=== PATIENT | male | born 1945 | race Caucasian/White ===

== ENCOUNTER → 2018-01-23 | Outpatient (CLI) | payer MEDICARE ==
[2018-01-23 12:09] LABS: HEMATOCRIT 50.9 % (42.0-52.0); HEMOGLOBIN 17.3 g/dl (13.5-17.5); MEAN CORPUSCULAR HEMOGLOBIN 29.8 pg (27.0-33.0); MEAN CORPUSCULAR VOLUME 87.8 fl (80.0-96.0); PLATELET COUNT, AUTOMATED 189 10^3/uL (150-450); RED CELL DISTRIBUTION WIDTH 14.1 % (11.5-14.5); WHITE BLOOD COUNT 5.8 10^3/uL (4.0-10.0)
[2018-01-23 12:43] LABS: ALBUMIN 3.9 GM/DL (3.2-5.2); ALBUMIN/GLOBULIN RATIO 1.18 (1.00-1.93); ALKALINE PHOSPHATASE 105 U/L (45-117); ALT/SGPT 39 U/L (12-78); ANION GAP 6 MEQ/L (8-16); AST/SGOT 21 U/L (7-37); BILIRUBIN,TOTAL 0.7 MG/DL (0.2-1.0); BLOOD UREA NITROGEN 20 MG/DL (7-18); CALCIUM LEVEL 8.9 MG/DL (8.8-10.2); CARBON DIOXIDE LEVEL 30 MEQ/L (21-32); CHLORIDE LEVEL 105 MEQ/L (98-107); CHOLESTEROL LEVEL 197 MG/DL (<200); CHOLESTEROL RISK RATIO 6.156 (<5); CPK CREATINE PHOSPHOKINASE 122 U/L (39-308); CREATININE FOR GFR 1.49 MG/DL (0.70-1.30); FREE T4 0.99 NG/DL (0.76-1.46); GLOMERULAR FILTRATION RATE 49.1 (>42); GLUCOSE, FASTING 173 MG/DL (70-100); HDL CHOLESTEROL 32 MG/DL (>40); NON-HDL-C 165 MG/DL; POTASSIUM SERUM 4.9 MEQ/L (3.5-5.1); SODIUM LEVEL 141 MEQ/L (136-145); TOTAL PROTEIN 7.2 GM/DL (6.4-8.2); TRIGLYCERIDES LEVEL 265 MG/DL (<150)
[2018-01-23 13:27] LABS: ESTIMATED AVERAGE GLUCOSE 148 MG/DL (60-110); HEMOGLOBIN A1c 6.8 %
[2018-01-23 13:47] LABS: MAU/CREAT RATIO 290.4 MCG/MG (0.0-30.0)
[2018-01-23 16:42] LABS: VITAMIN B12 LEVEL 363 PG/ML (247-911)
== END ==
LOC: M LRY 08:34
DX: E11.9 Type 2 diabetes mellitus without complications (principal); E78.00 Pure hypercholesterolemia, unspecified; R53.83 Other fatigue
CPT/HCPCS: 82550

== ENCOUNTER → 2018-05-09 | Outpatient (CLI) | payer MEDICARE ==
[2018-05-09 16:38] LABS: HEMATOCRIT 50.6 % (42.0-52.0); HEMOGLOBIN 16.8 g/dl (13.5-17.5); MEAN CORPUSCULAR HGB CONC 33.2 g/dl (32.0-36.5); MEAN CORPUSCULAR VOLUME 87.4 fl (80.0-96.0); PLATELET COUNT, AUTOMATED 187 10^3/uL (150-450); RED BLOOD COUNT 5.79 10^6/uL (4.30-6.10); RED CELL DISTRIBUTION WIDTH 13.4 % (11.5-14.5); WHITE BLOOD COUNT 7.1 10^3/uL (4.0-10.0)
[2018-05-09 16:42] LABS: ALBUMIN 4.5 GM/DL (3.2-5.2); ALBUMIN/GLOBULIN RATIO 1.67 (1.00-1.93); ALKALINE PHOSPHATASE 100 U/L (45-117); ALT/SGPT 28 U/L (12-78); ANION GAP 5 MEQ/L (8-16); AST/SGOT 16 U/L (7-37); BILIRUBIN,TOTAL 0.7 MG/DL (0.2-1.0); BLOOD UREA NITROGEN 24 MG/DL (7-18); CALCIUM LEVEL 9.1 MG/DL (8.8-10.2); CARBON DIOXIDE LEVEL 29 MEQ/L (21-32); CHLORIDE LEVEL 107 MEQ/L (98-107); CHOLESTEROL LEVEL 194 MG/DL (<200); CHOLESTEROL RISK RATIO 6.689 (<5); CPK CREATINE PHOSPHOKINASE 156 U/L (39-308); CREATININE FOR GFR 1.56 MG/DL (0.70-1.30); GLOMERULAR FILTRATION RATE 46.4 (>42); GLUCOSE, FASTING 122 MG/DL (70-100); HDL CHOLESTEROL 29 MG/DL (>40); LDL CHOLESTEROL 122 MG/DL (<100); NON-HDL-C 165 MG/DL; POTASSIUM SERUM 4.5 MEQ/L (3.5-5.1); SODIUM LEVEL 141 MEQ/L (136-145); TOTAL PROTEIN 7.2 GM/DL (6.4-8.2); TRIGLYCERIDES LEVEL 217 MG/DL (<150)
[2018-05-09 16:53] LABS: ESTIMATED AVERAGE GLUCOSE 128 MG/DL (60-110); HEMOGLOBIN A1c 6.1 %
[2018-05-09 17:03] LABS: MAU/CREAT RATIO 179.7 MCG/MG (0.0-30.0)
== END ==
LOC: M LRY 11:09
DX: E78.00 Pure hypercholesterolemia, unspecified (principal); E11.9 Type 2 diabetes mellitus without complications; I10 Essential (primary) hypertension
CPT/HCPCS: 82550

== ENCOUNTER 2018-07-20 15:45 | Inpatient (IN) | payer MEDICARE ==
[~2018-07-20] VITALS: Ht 177.8 cm; Wt 94.2 kg
[2018-07-20] MEDS ORDERED: MOM 30ML SUSPENSION UDC PO PRN (16:30)
[2018-07-20] MEDS ORDERED: GLUCOSE 4 GM CHEW TABLET PO PRN (16:30)
[2018-07-20] MEDS ORDERED: BISACODYL 10 MG SUPP PR PRN (16:30)
[2018-07-20] MEDS ORDERED: DEXTROSE 50% 50 ML SYRINGE IV PRN (16:30)
[2018-07-20] MEDS ORDERED: ONDANSETRON 4 MG TAB (S0181) PO PRN (16:30)
[2018-07-20] MEDS ORDERED: ACETAMINOPHEN TAB 650MG DOSE (2X325MG) PO PRN (16:30)
[2018-07-20] MEDS ORDERED: GLUCAGON FOR INJ 1 MG VIAL (J1610) SC PRN (16:30)
[2018-07-20 16:40] VITALS: BP 134/79
[2018-07-20] MEDS ORDERED: ASPI81CH PO (17:17)
[2018-07-20] MEDS ORDERED: MIRA3350 PO (17:17)
[2018-07-20] MEDS ORDERED: CLOP75TA2 PO (17:17)
[2018-07-20] MEDS ORDERED: LOSA25TA14 PO (17:17)
[2018-07-20] MEDS ORDERED: ATOR80TA59 PO (17:17)
[2018-07-20] MEDS ORDERED: DOCU100C16 PO (17:17)
[2018-07-20] MEDS ORDERED: AMLO10TA5 PO (17:17)
[2018-07-20] MEDS ORDERED: METF10004 PO (17:17)
[2018-07-20] MEDS: HumaLOG INSULIN (NovoLOG) PER UNIT SC SCH (17:30)
[2018-07-20 20:00] VITALS: BP 126/67
--- NOTE | 2018-07-20 21:36 | CR ---
DATE OF CONSULTATION: 07/20/2018 REASON FOR CONSULT: Medical management. FAREBOX REPAIRER PROVIDER: Patricia Rouse MD. HISTORY OF PRESENT ILLNESS: The patient is a 73-year-old right-handed male, who initially presented to [facility] on 07/16. At the time, he presented with right-sided facial droop, as well as right hemiparesis. He had undergo an extensive evaluation at their facility including echocardiogram with negative bubble study. Preserved ejection fraction. At the end of their work up, he was noted to have severe distal M3 stenosis, as well as right vertebral stenosis at C5, which they feel to be the etiology of his right pontine cerebrovascular accident (CVA). The patient had noticed some improvement in his symptoms over the last several days while being hospitalized. At this time, he has been transferred to and R acute rehabilitation unit for continued rehabilitation. PAST MEDICAL HISTORY: 1. Hypertension. 2. Diabetes. 3. Coronary artery disease, status post coronary artery bypass graft (CABG), four vessels CURRENT MEDICATIONS: - losartan 25 mg daily - pantoprazole 40 mg daily - aspirin 81 mg - Lipitor 80 mg - Plavix 75 mg - Lovenox 40 mg subcutaneously daily - amlodipine 10 mg daily - Senokot one tablet at bedtime (q.h.s.) - Levemir 5 units at bedtime (q.h.s.) - insulin sliding scale - Dulcolax 10 mg daily as needed for constipation ALLERGIES: No known drug allergies. SURGICAL HISTORY: Four vessel coronary artery bypass graft (CABG). SOCIAL HISTORY: He is , former smoker. Denies alcohol or illicit drug use. REVIEW OF SYSTEMS: Negative other than history of present illness. FAMILY HISTORY: Noncontributory. OBJECTIVE: VITAL SIGNS: Temperature 97.5, pulse 60, respiratory rate 18, blood pressure (BP) 134/79, oxygen saturation 94% on room air. GENERAL: He is a very pleasant, elderly man, speaking. He does have some slurred speech, but is awake, alert, oriented times three. He is accompanied by his and daughter. He does not appear to be in any acute distress. HEENT: He does have a right-sided facial droop. Moist mucous membranes. Tongue is midline. CARDIOVASCULAR: S1, S2 regular. RESPIRATORY EXAM: Fairly clear. ABDOMINAL EXAM: Obese, bowel sounds present. The abdomen is soft. EXTREMITIES: There is no clubbing, cyanosis or edema. LABORATORY STUDIES: From today in [place], white blood count (WBC) 7.5, hemoglobin 16.5, hematocrit 47.9, platelet count 168. Chemistry panel: Sodium 135, potassium 4.6, chloride 104, bicarbonate 19, BUN 21, creatinine 1.3, glucose 133. ASSESSMENT AND PLAN: This is a 73-year-old man status post right pontine cerebrovascular accident (CVA). PROBLEMS: 1. Right pontine cerebrovascular accident (CVA). He is currently on aspirin, Plavix, statin, high does, high intensity statin. We are also making every effort to control his blood pressure with losartan and amlodipine, which are new medications for him and I explained to the family and the patient that given his severe intracranial stenosis, he will require our best efforts to keep him optimized, including dietary habits, control of his diabetes and blood pressure in order to reduce his risk of future strokes. However, for the rest of his life, he will likely remain at higher risk for further strokes. These could occur at any time. 2. Type 2 diabetes on insulin sliding scale with fingersticks. 3. Hypertension, as outlined above. 4. Coronary artery disease. He is on aspirin and statin. He is not on a beta duncan. Should he be hypertensive, could consider switching him to one in the future if felt strongly about it. 5. Deep vein thrombosis (DVT) prophylaxis. He is on Lovenox. Thank you for this interesting consult. Will continue to follow along with you regarding this patient. Please call with any specific questions. WAQAR
[2018-07-20] MEDS: DOCUSATE SODIUM 100 MG CAP PO SCH (21:56)
[2018-07-20] MEDS: SENNA 8.6 MG TAB (SENOKOT) PO SCH (21:56)
[2018-07-20] MEDS: LEVEMIR (INSULIN DETEMIR) 1 UNITS/0.01ML SC SCH (21:57)
[2018-07-21 06:00] VITALS: BP 144/70
[2018-07-21 06:58] LABS: BASO # 0.1 10^3/uL (0.0-0.2); BASO % 0.9 % (0.0-1.0); EOS # 0.3 10^3/uL (0.0-0.50); EOS % 4.1 % (0.0-3.0); HEMATOCRIT 49.2 % (42.0-52.0); HEMOGLOBIN 16.7 g/dl (13.5-17.5); LYMPH # 1.4 10^3/uL (1.5-4.5); LYMPH % 19.5 % (24.0-44.0); MEAN CORPUSCULAR HEMOGLOBIN 29.7 pg (27.0-33.0); MEAN CORPUSCULAR HGB CONC 33.9 g/dl (32.0-36.5); MEAN CORPUSCULAR VOLUME 87.4 fl (80.0-96.0); MONO # 0.8 10^3/uL (0.0-0.8); MONO % 11.2 % (0.0-5.0); NEUTROPHILS # 4.5 10^3/uL (1.8-7.7); PLATELET COUNT, AUTOMATED 161 10^3/uL (150-450); RED BLOOD COUNT 5.63 10^6/uL (4.30-6.10)
[2018-07-21 07:24] LABS: ALBUMIN 3.8 GM/DL (3.2-5.2); BILIRUBIN,TOTAL 0.8 MG/DL (0.2-1.0); CREATININE FOR GFR 1.54 MG/DL (0.70-1.30); GLOMERULAR FILTRATION RATE 47.1 (>42); POTASSIUM SERUM 4.3 MEQ/L (3.5-5.1); TOTAL PROTEIN 6.9 GM/DL (6.4-8.2)
[2018-07-21] MEDS ORDERED: LOSARTAN 25 MG TAB PO SCH (09:00)
[2018-07-21] MEDS: ASPIRIN 81 MG CHEW TABLET PO SCH (09:35)
[2018-07-21] MEDS: ENOXAPARIN 40 MG/0.4 ML SYRINGE (J1650) SC SCH (09:35)
[2018-07-21] MEDS: CLOPIDOGREL 75 MG TAB PO SCH (09:36)
[2018-07-21] MEDS: PANTOPRAZOLE 40MG TAB (PROTONIX) PO SCH (09:36)
[2018-07-21] MEDS: amLODIPine 10 MG TAB PO SCH (09:36)
[2018-07-21] MEDS: ATORVASTATIN 20 MG TAB PO SCH (09:36)
[2018-07-21] MEDS: DOCUSATE SODIUM 100 MG CAP PO SCH ×2 (09:36→20:39)
[2018-07-21] MEDS: FLUoxetine 20 MG CAP PO SCH (09:36)
[2018-07-21] MEDS: HumaLOG INSULIN (NovoLOG) PER UNIT SC SCH ×3 (09:37→17:51)
[2018-07-21] MEDS: LOSARTAN 25 MG TAB PO SCH (10:44)
--- NOTE | 2018-07-21 13:31 | NUR ---
Pt w/ mild oropharyngeal phase dysphagia characterized by right side facial weakness, edentulous state, and minimal coughing/throat clearing. Recommend pureed solids and thin liquids. Will continue dysphagia management for possible diet upgrade w/ compensatory strategy training. Addendum: 07/21/[address] [facility] Amended: Links added.
--- NOTE | 2018-07-21 13:36 | NUR ---
Pt's expressive/receptive language skills are wnl Presents w/ moderate dysarthria Recommend [employer] TE[employer]ER tx for compensatory strategies & speech-production exercises Addendum: 07/21/18 at 1337 by TREVA CHENG [facility] SP Amended: Links added.
--- NOTE | 2018-07-21 13:37 | HPEPDOC ---
Seismic Interpreter Note DATE OF ADMISSION: Jul 20, 2018 at 16:14 SOURCE OF ADMISSION INFORMATION: Patient and [facility] medical records CHIEF COMPLAINT: stroke HISTORY OF PRESENT ILLNESS: 73M pmh DM, HTN, CAD s/p 4 vessels who presented to [facility] ED on 07/16/18 after waking up dizzy with difficulty speaking and leg weakness. Upon arrival he had aphasia, facial droop, and right sided upper extremity hemiplegia with a NIHSS of 7. He was outside of the TPA window given it was greater than 4.5 hours since onset of symptoms. He was admitted to the stroke unit, placed on telemetry and started on ASA and Plavix in addition to statins. MRI brain 07/16/18 revealed acute infarct in the left ponschronic microvascular ischemic disease. CTA Head and Neck 07/16/18 showed, severe focal stenosis distal left [id number] stenosis of the proximal right cervical vertebral arteryno large vessel occlusion, aneurysm, dissection, or arteriovenous malformation in the major intracranial arteriesno large vessel occlusion, or dissection in the major cervical arteriesno acute intracranial hemorrhage or evidence of acute infarctionchronic lacunar infarct left basal ganglia. Given his lack of proximal occlusions he was ineligible for a mechanical endovascular stroke intervention. CT perfusion study on 07/16/18 showed mismatch volume: 27mL. Most likely represents false penumbra due to severe stenosis right cervical vertebral artery at C6-C7 level causing hypo perfusion in the right occipital lobe. TTE on 07/17/18 showed, LVEF 6-065%...the left atrium is mildly dilated..no interatrial shunt visualized by color Doppler and bubble. His left pontine stroke was considered to be due to [id number] thromboembolism in the setting of severe left M3 stenosis He was initially managed with permissive HTN and later BP meds wre added to his medication list. He was found to have elevated creatinine with unknown etiology that did not respond to IVF. He was laced on a dysphagia diet, found to have ADL and gait impairment and deemed medically appropriate for discharge to ARU on 07/20/18. REVIEW OF SYSTEMS: The following is a completed review of systems and has been reviewed. Review of systems otherwise unremarkable. PAIN: Patient self reports no pain. EYES: Negative fo recent vision loss EARS, NOSE, & THROAT: +dysphagia CARDIOVASCULAR:denies chest pain or palpitations PULMONARY: Negative. Denies shortness of breath GASTROINTESTINAL: Negative for diarrhea or constipation GENITOURINARY: Negative for dysuria or hematuria NEUROLOGICAL: +stroke with dysphagia, dysarthria, and right sided paresis HEMATOLOGICAL: Negative SKIN: intact PSYCHIATRIC: Unremarkable. All other review of systems found to be negative. PAST MEDICAL HISTORY: DM, HTN, CAD s/p 4 vessels ALLERGIES: Please see below. MEDICATIONS: Please see below. 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 GENERAL: Pleasant and cooperative. No acute distress. HEENT: PERRL. Extraocular movements intact. Clear conjunctiva, glasses, visual collins intact CARDIOVASCULAR: Regular rate and rhythm. No murmurs, rubs, or gallops. LUNGS: Clear to auscultation bilaterally. No wheezes. No rhonchi. ABDOMEN: Soft, nontender, nondistended. Positive bowel sounds. Normal active bowel sounds NEUROLOGICAL: Alert and oriented times three. Cranial nerves II through XII grossly intact, right eyebrow sparing facial droop, +dysarthria, non-fluent aphasia, comprehension intact, no anomia, no dysmetria on the left EXTREMITIES: 2/5 right elbow flexors, 1/5 elbow extensors, 2/5 wrist extension, 2/5 sap grc security 5\5 strength left upper extremities. 2/5 right hip flexors, 3/5 knee extensor, 3+/5 ankle DF and EHL. 5/5 strength in left lower extremity. Decreased sensation to light touch RUE and RLE SKIN: intact IMAGING: Imaging documentation personally reviewed by record. FUNCTIONAL STATUS: Premorbid: Independent with all activities of daily life as well as mobility. On Admission: Requiring Mod-Max assist for bed mobility, total assist for stairs, max assist for ambulation. Mod-Max assist for dressing and bathing and toileting. GOALS: Modified Independent with RW for ambulation, stairs, dressing, bathing, grooming, medical optimization, family training, advance diet, assess for DMEs. ASSESSMENT:73-year-old M with past medical history of HTN, CAD who presents status post left pontine stroke. PLAN: 1. Rehab: PT, OT PHYSICIAN LOC[facility] URG[facility] C[facility] and assess for DME needs 2. Neuro: s/p left pontine infarct with RUE and RLE paresis with dysphagia thought to be [id number] thromboembolic due to severe intracerebral stenosis, continue ASA-Plavix, statin, and BP meds, goal BP will be 130-140s given risk of hypoperfusion, medicine consulted -Prozac for mood and motor recovery 3. Cardio: pmh HTn and CAd s/p 4 vessels, continue antiplatelet therapy and Amlodipine and Losartan, monitor and adjust as needed 4. Resp: encourage incentive spirometry, monitor for aspiration and infeciton 5. Endo: pmh DM continue insulin 6. DVT ppx: Lovenox and TEDs 7. : monitor pVRs and follow up admission UA and Ucx 8. GI ppx; protonix 9. Dispo: TBD POST ADMISSION PHYSICIAN EVALUATION: Medical and functional status: Description of medical status, medical assessment: As above. Rehabilitation diagnosis and current and prior cold morbid medical conditions as above. Risk of complications and plans to mitigate them as above. Description of functional status current status is as above. Prior status as above. Status compared to preadmission: There are no clinically significant differences between the patient's current status and the information described on the preadmission screening document. Treatment plan anticipated: Treatment plan is as described above. Required disciplines including physical therapy, occupational therapy, others as noted above Intensity of services: 3 hours a day, 6 days a week. Special considerations: There are no specific special or safety considerations that would likely preclude immediate implementation of an intensive rehabilitation program or subsequently influence the plan of care ATTESTATION: Considering all the information above, it is my best judgment that this patient requires intensive rehabilitation therapy as described above and an inpatient hospital environment due to the complexity of nursing, medical, and rehabilitation needs required by the patient. Furthermore, this patient can reasonably be expected to participate in an benefit from an inpatient rehabilitation stay with an interdisciplinary team approach to the delivery of rehabilitation care under the direction and supervision of rehabilitation physician. PROGNOSIS: Excellent ESTIMATED LENGTH OF STAY:21-28 days. PROJECTED DISCHARGE DESTINATION: Home with family support and any durable medical equipment required to increase functional safety and mobility TIME SPENT COUNSELING AND COORDINATING INITIAL CARE: Greater than 70 minutes. Vital Signs Vital Signs Date Time Temp Pulse Resp B/P (MAP) Pulse Ox O2 Delivery O2 Flow Rate FiO2 07/20/18 16:40 97.5 60 18 134/79 (97) 94 Home Medications Scheduled (Aspirin) 81 Mg Chw, 81 MG PO DAILY, (Reported) Amlodipine Besylate (Amlodipine Besylate) 10 Mg Tab, 10 MG PO DAILY, (Reported) Atorvastatin Calcium (Atorvastatin Calcium) 80 Mg Tab, 80 MG PO DAILY, (Reported) Clopidogrel Bisulfate (Clopidogrel) 75 Mg Tab, 75 MG PO DAILY, (Reported) Docusate Sodium (Docusate Sodium) 100 Mg Cap, 100 MG PO BID, (Reported) Losartan Potassium (Losartan Potassium) 25 Mg Tab, 25 MG PO DAILY, (Reported) Metformin Hydrochloride (Metformin HCl) 1,000 Mg Tab, 1,000 MG PO QAM, (Reported) Scheduled PRN Polyethylene Glycol (Miralax) 1 Pow Pow, 17 GM PO DAILY PRN for CONSTIPATION, (Reported) dilute in 8 ounces of water or juice Allergies Coded Allergies: No Known Allergies (Unverified , 07/20/18) RENNY GUZMAN MD Jul 20, 2018 17:25
[2018-07-21 14:00] VITALS: BP 132/74
[2018-07-21 20:00] VITALS: BP 130/70
[2018-07-21] MEDS: LEVEMIR (INSULIN DETEMIR) 1 UNITS/0.01ML SC SCH (20:39)
[2018-07-21] MEDS: SENNA 8.6 MG TAB (SENOKOT) PO SCH (20:39)
[2018-07-22 06:00] VITALS: BP 126/74
[2018-07-22] MEDS: ATORVASTATIN 20 MG TAB PO SCH (07:51)
[2018-07-22] MEDS: DOCUSATE SODIUM 100 MG CAP PO SCH ×2 (07:52→20:49)
[2018-07-22] MEDS: ASPIRIN 81 MG CHEW TABLET PO SCH (07:52)
[2018-07-22] MEDS: amLODIPine 10 MG TAB PO SCH (07:53)
[2018-07-22] MEDS: PANTOPRAZOLE 40MG TAB (PROTONIX) PO SCH (07:53)
[2018-07-22] MEDS: CLOPIDOGREL 75 MG TAB PO SCH (07:53)
[2018-07-22] MEDS: FLUoxetine 20 MG CAP PO SCH (07:53)
[2018-07-22] MEDS: HumaLOG INSULIN (NovoLOG) PER UNIT SC SCH ×3 (07:54→16:57)
[2018-07-22] MEDS: ENOXAPARIN 40 MG/0.4 ML SYRINGE (J1650) SC SCH (07:55)
[2018-07-22 09:00] VITALS: BP 121/69
[2018-07-22] MEDS: LOSARTAN 25 MG TAB PO SCH (10:37)
[2018-07-22 14:00] VITALS: BP 120/58
[2018-07-22 20:00] VITALS: BP 164/76
[2018-07-22] MEDS: SENNA 8.6 MG TAB (SENOKOT) PO SCH (20:49)
[2018-07-22] MEDS: LEVEMIR (INSULIN DETEMIR) 1 UNITS/0.01ML SC SCH (20:50)
[2018-07-23 06:00] VITALS: BP 148/81
[2018-07-23] MEDS: HumaLOG INSULIN (NovoLOG) PER UNIT SC SCH ×3 (09:21→17:17)
[2018-07-23] MEDS: DOCUSATE SODIUM 100 MG CAP PO SCH ×2 (09:21→21:00)
[2018-07-23] MEDS: FLUoxetine 20 MG CAP PO SCH (09:21)
[2018-07-23] MEDS: ASPIRIN 81 MG CHEW TABLET PO SCH (09:21)
[2018-07-23] MEDS: PANTOPRAZOLE 40MG TAB (PROTONIX) PO SCH (09:23)
[2018-07-23] MEDS: CLOPIDOGREL 75 MG TAB PO SCH (09:24)
[2018-07-23] MEDS: ATORVASTATIN 20 MG TAB PO SCH (09:24)
[2018-07-23] MEDS: ENOXAPARIN 40 MG/0.4 ML SYRINGE (J1650) SC SCH (09:25)
[2018-07-23] MEDS: amLODIPine 10 MG TAB PO SCH (09:25)
--- NOTE | 2018-07-23 10:40 | NUR ---
Please upgrade to level 2, mechanically altered (NDD) solids and continue thin liquids. Addendum: 07/23/18 at [address] [facility] SP Amended: Links added.
[2018-07-23] MEDS: LOSARTAN 25 MG TAB PO SCH (10:53)
--- NOTE | 2018-07-23 11:56 | IPNPDOC ---
Date Seen The patient was seen on 07/23/18. Progress Note HPI:The patient is a 73-year-old right-handed male, who initially presented to [facility] on 07/16/18. At the time, he presented with right-sided facial droop, as well as right hemiparesis. He had undergo an extensive evaluation at their facility including echocardiogram with negative bubble study. Preserved ejection fraction. At the end of their work up, he was noted to have severe distal M3 stenosis, as well as right vertebral stenosis at C5, which they feel to be the etiology of his right pontine cerebrovascular acc ident (CVA). The patient had noticed some improvement in his symptoms over the last several days while being hospitalized. He was been transferred to the care of ARU, Dr Ross, 07/20/18. PAST MEDICAL HISTORY: 1. Hypertension. 2. Diabetes. 3. Coronary artery disease, status post coronary artery bypass graft (CABG), four vessels 4. CKD3 PE: GEN: 73yoF, appears stated age. Alert and oriented x 3. Pleasant, interactive. HEENT: Normocephalic, atraumatic. Sclera are nonicteric. Conjunctiva without injection. Moist mucous membranes. Rt facial droop noted. CHEST: Regular rate and rhythm, +S1, +S2 LUNGS: Clear to auscultation bilaterally. No wheezes, rales, or rhonchi. ABD: Round, soft, non-tender, non-distended. +Bowel sounds throughout. EXT: No lower extremity edema appreciated. SKIN: [place], dry, warm. No rashes. NEURO: Alert and oriented x 3. Dysarthria noted. Rt hemiparesis. A&P: The patient is a 73-year-old right-handed male, who initially presented to [facility] on 07/16/18. At the time, he presented with right-sided facial droop, as well as right hemiparesis. He had undergo an extensive evaluation at their facility including echocardiogram with negative bubble study. Preserved ejection fraction. At the end of their work up, he was noted to have severe distal M3 stenosis, as well as right vertebral stenosis at C5, which they feel to be the etiology of his right pontine cerebrovascular accident (CVA). The patient had noticed some improvement in his symptoms over the last several days while being hospitalized. He was been transferred to the care of ARU, Dr Ross, 07/20/18. 1. 1. Right pontine cerebrovascular accident (CVA). Mgmt as per ARU. Outpt F/U with Neurology. PT/OT/ST as per ARU. Pain control/Bowel care as per ARU. DVT prophylaxis. Pt on Lovenox. Disposition as per ARU. Continue Aspirin 81mg, Plavix 75mg, Lipitor 80mg. 2. Type 2 diabetes. CC diet. SSI Levemir. 3. Hypertension. Cozaar 25 mg daily. Norvasc 10 mg daily. BP this AM 141/70. Monitor. 4. Coronary artery disease. Continue aspirin and statin. He is not on a beta duncan. HR trend noted to be 55-72 bpm. 5. CKD. Appears to be at baseline 1.5-1.6. VS, I&O, 24H, Fishbone Vital Signs/I&O Vital Signs Date Time Temp Pulse Resp B/P (MAP) Pulse Ox O2 Delivery O2 Flow Rate FiO2 07/23/18 10:53 141/70 07/23/18 09:25 73 07/23/18 06:00 97.2 18 92 I&O- Last 24 Hours up to 6 AM 07/23/18 06:00 Intake Total 120 ml Output Total 850 ml Balance -730 ml Laboratory Data 24H LABS Laboratory Tests 2 07/22/18 16:44: Bedside Glucose (Misc Panel) 107 07/22/18 20:31: Bedside Glucose (Misc Panel) 103 07/23/18 05:49: Bedside Glucose (Misc Panel) 108 07/23/18 11:35: Bedside Glucose (Misc Panel) 157H Jolynn Cobos Jul 23, 2018 11:56
[2018-07-23 14:00] VITALS: BP 131/84
[2018-07-23 20:00] VITALS: BP 137/67
[2018-07-23] MEDS: SENNA 8.6 MG TAB (SENOKOT) PO SCH (21:00)
[2018-07-23] MEDS: LEVEMIR (INSULIN DETEMIR) 1 UNITS/0.01ML SC SCH (21:51)
[2018-07-23 22:23] LABS: APPEARANCE, URINE CLOUDY (CLEAR); BACTERIA, URINE AUTO NEGATIVE (NEGATIVE); BILIRUBIN, URINE AUTO NEGATIVE (NEGATIVE); BLOOD, URINE BLOOD NEGATIVE (NEGATIVE); COLOR, URINE YELLOW (YELLOW); GLUCOSE, URINE (UA) AUTO NEGATIVE (NEGATIVE); KETONE, URINE AUTO NEGATIVE (NEGATIVE); LEUKOCYTE ESTERASE, URINE AUTO NEGATIVE (NEGATIVE); MUCUS, URINE SMALL (NEGATIVE); NITRITE, URINE AUTO NEGATIVE (NEGATIVE); PROTEIN, URINE AUTO NEGATIVE (NEGATIVE); RBC, URINE AUTO 2 /HPF (0-3); SPECIFIC GRAVITY URINE AUTO 1.023 (1.002-1.035); SQUAMOUS EPITHELIAL CELL UR AU 0 /HPF (0-6); URIC ACID CRYSTALS SMALL; UROBILINOGEN, URINE AUTO 0.2 mg/dL (0.0-2.0); WBC, URINE AUTO 2 /HPF (0-3)
[2018-07-24 06:00] VITALS: BP 142/75
[2018-07-24 07:29] LABS: CALCIUM LEVEL 8.8 MG/DL (8.8-10.2); CREATININE FOR GFR 1.64 MG/DL (0.70-1.30); GLOMERULAR FILTRATION RATE 43.8 (>42); POTASSIUM SERUM 4.2 MEQ/L (3.5-5.1)
[2018-07-24] MEDS: ENOXAPARIN 40 MG/0.4 ML SYRINGE (J1650) SC SCH (09:07)
[2018-07-24] MEDS: ATORVASTATIN 20 MG TAB PO SCH (09:08)
[2018-07-24] MEDS: FLUoxetine 20 MG CAP PO SCH (09:08)
[2018-07-24] MEDS: HumaLOG INSULIN (NovoLOG) PER UNIT SC SCH ×3 (09:08→17:37)
[2018-07-24] MEDS: ASPIRIN 81 MG CHEW TABLET PO SCH (09:08)
[2018-07-24] MEDS: CLOPIDOGREL 75 MG TAB PO SCH (09:08)
[2018-07-24] MEDS: PANTOPRAZOLE 40MG TAB (PROTONIX) PO SCH (09:08)
[2018-07-24] MEDS: amLODIPine 10 MG TAB PO SCH (09:09)
[2018-07-24] MEDS: DOCUSATE SODIUM 100 MG CAP PO SCH ×2 (09:09→20:21)
[2018-07-24] MEDS: LOSARTAN 25 MG TAB PO SCH (10:37)
[2018-07-24 14:00] VITALS: BP 140/75
--- NOTE | 2018-07-24 14:17 | IPNPDOC ---
Date Seen The patient was seen on 07/24/18. Progress Note HPI:The patient is a 73-year-old right-handed male, who initially presented to [facility] on 07/16/18. At the time, he presented with right-sided facial droop, as well as right hemiparesis. He had undergo an extensive evaluation at their facility including echocardiogram with negative bubble study. Preserved ejection fraction. At the end of their work up, he was noted to have severe distal M3 stenosis, as well as right vertebral stenosis at C5, which they feel to be the etiology of his right pontine cerebrovascular accident (CVA). The patient had noticed some improvement in his symptoms over the last several days while being hospitalized. He was been transferred to the care of ARU, Dr Ross, 07/20/18. The patient has been out of bed with therapy. He has no verbalized complaints at this time. He denies chest pain, shortness of breath, abdominal pain, nausea, vomiting, diarrhea, or urinary complaints. States he is eating and drinking well. PAST MEDICAL HISTORY: 1. Hypertension. 2. Diabetes. 3. Coronary artery disease, status post coronary artery bypass graft (CABG), four vessels 4. CKD3 PE: GEN: 73yoF, appears stated age. Alert and oriented x 3. Pleasant, interactive. HEENT: Normocephalic, atraumatic. Sclera are nonicteric. Conjunctiva without injection. Moist mucous membranes. Rt facial droop noted. CHEST: Regular rate and rhythm, +S1, +S2 LUNGS: Clear to auscultation bilaterally. No wheezes, rales, or rhonchi. ABD: Round, soft, non-tender, non-distended. +Bowel sounds throughout. EXT: No lower extremity edema appreciated. SKIN: [place], dry, warm. No rashes. NEURO: Alert and oriented x 3. Dysarthria noted. Rt hemiparesis. A&P: The patient is a 73-year-old right-handed male, who initially presented to [facility] on 07/16/18. At the time, he presented with right-sided facial droop, as well as right hemiparesis. He had undergo an extensive evaluation at their facility including echocardiogram with negative bubble study. Preserved ejection fraction. At the end of their work up, he was noted to have severe distal M3 stenosis, as well as right vertebral stenosis at C5, which they feel to be the etiology of his right pontine cerebrovascular accident (CVA). The patient had noticed some improvement in his symptoms over the last several days while being hospitalized. He was been transferred to the care of ARU, Dr Ross, 07/20/18. 1. 1. Right pontine cerebrovascular accident (CVA). Mgmt as per ARU. Outpt F/U with Neurology. PT/OT/ST as per ARU. Pain control/Bowel care as per ARU. DVT prophylaxis. Pt on Lovenox. Disposition as per ARU. Continue Aspirin 81mg, Plavix 75mg, Lipitor 80mg. 2. Type 2 diabetes. CC diet. SSI Levemir. 3. Hypertension. Cozaar 25 mg daily. Norvasc 10 mg daily. Blood pressure appears controlled Monitor. 4. Coronary artery disease. Continue aspirin and statin. He is not on a beta duncan. HR trend noted to be 55-72 bpm. 5. CKD. Appears to be at baseline 1.5-1.6. VS, I&O, 24H, [facility] Vital Signs/I&O Vital Signs Date Time Temp Pulse Resp B/P (MAP) Pulse Ox O2 Delivery O2 Flow Rate FiO2 07/24/18 10:37 138/73 07/24/18 09:09 52 07/24/18 06:00 97.5 17 92 I&O- Last 24 Hours up to 6 AM 07/24/18 06:00 Intake Total 600 ml Output Total 950 ml Balance -350 ml Laboratory Data 24H LABS Laboratory Tests 2 07/23/18 16:41: Bedside Glucose (Misc Panel) 101 07/23/18 20:04: Bedside Glucose (Misc Panel) 110 07/23/18 22:00: Urine Appearance CLOUDYH, Urine Color YELLOW, Urine pH 5.0, Urine Specific [place] 1.023, Urine Protein NEGATIVE, Urine Glucose (UA) NEGATIVE, Urine Ketones NEGATIVE, Urine Urobilinogen 0.2, Urine Bilirubin NEGATIVE, Urine Leukocyte Esterase NEGATIVE, Urine Blood NEGATIVE, Urine Nitrite NEGATIVE, Urine WBC (Auto) 2, Urine RBC (Auto) 2, Urine Hyaline Casts (Auto) 0, Urine Bacteria (Auto) NEGATIVE, Urine Squamous Epithelial Cells 0, Urine Uric Acid Crystals (Auto) SMALL, Urine Mucus (Auto) SMALL, Urine Sperm (Auto) 07/24/18 05:40: Bedside Glucose (Misc Panel) 123H 07/24/18 06:43: Anion Gap 5L, Glomerular Filtration Rate 43.8, Blood Urea Nitrogen 34H, Creatini ne 1.64H, Sodium Level 140, Potassium Level 4.2, Chloride Level 108H, Carbon Dioxide Level 27, Calcium Level 8.8 CBC/BMP Laboratory Tests 07/24/18 06:43 Calcium Level 8.8 Microbiology Microbiology 07/23/18 Urine Culture, Received Pending Jolynn Cobos Jul 24, 2018 14:17
--- NOTE | 2018-07-24 16:27 | IPNPDOC ---
PM&R Progress Note DATE OF SERVICE: Jul 23, 2018 Chimney Repairer Progress Note Subjective: Patient states he wants to go home as soon as possible and reports he is getting stronger. REVIEW OF SYSTEMS: The following is a completed review of systems and has been reviewed. Review of systems otherwise unremarkable. PAIN: Patient self reports no pain. EYES: Negative fo recent vision loss EARS, NOSE, & THROAT: +dysphagia CARDIOVASCULAR:denies chest pain or palpitations PULMONARY: Negative. Denies shortness of breath GASTROINTESTINAL: Negative for diarrhea or constipation GENITOURINARY: Negative for dysuria or hematuria NEUROLOGICAL: +stroke with dysphagia, dysarthria, and right sided paresis HEMATOLOGICAL: Negative SKIN: intact PSYCHIATRIC: Unremarkable. All other review of systems found to be negative. PHYSICAL EXAMINATION: VITAL SIGNS: Please see below. GENERAL: Pleasant and cooperative. No acute distress. HEENT: PERRL. Extraocular movements intact. Clear conjunctiva, glasses, visual collins intact CARDIOVASCULAR: Regular rate and rhythm. No murmurs, rubs, or gallops. LUNGS: Clear to auscultation bilaterally. No wheezes. No rhonchi. ABDOMEN: Soft, nontender, nondistended. Positive bowel sounds. Normal active bowel sounds NEUROLOGICAL: Alert and oriented times three. Cranial nerves II through XII grossly intact, right eyebrow sparing facial droop, +dysarthria, non-fluent aphasia, comprehension intact, no anomia, no dysmetria on the left EXTREMITIES: 2/5 right elbow flexors, 1/5 elbow extensors, 2/5 wrist extension, 2/5 ironing worker 5\5 strength left upper extremities. 2/5 right hip flexors, 3/5 knee extensor, 3+/5 ankle DF and EHL. 5/5 strength in left lower extremity. Decreased sensation to light touch RUE and RLE SKIN: intact ASSESSMENT:73-year-old M with past medical history of HTN, CAD who presents status post left pontine stroke. PLAN: 1. Rehab: PT, OT SENIOR PLANNING MANAGER and assess for DME needs, ambulating with platform RW with assistance, diet upgraded to mechanical soft and thins 2. Neuro: s/p left pontine infarct with RUE and RLE paresis with dysphagia thought to be [id number] thromboembolic due to severe intracerebral stenosis, continue ASA-Plavix, statin, and BP meds, goal BP will be 130-140s given risk of hypoperfusion, medicine consulted -Prozac for mood and motor recovery 3. Cardio: pmh HTn and CAd s/p 4 vessels, continue antiplatelet therapy and Amlodipine and Losartan, monitor and adjust as needed 4. Resp: encourage incentive spirometry, monitor for aspiration and infeciton 5. Endo: pmh DM continue insulin 6. DVT ppx: Lovenox and TEDs 7. : monitor pVRs and follow up admission UA and Ucx 8. GI ppx; protonix 9. Dispo: TBD Allergies Coded Allergies: No Known Allergies (Unverified , 07/20/18) Vital Signs Vital Signs Date Time Temp Pulse Resp B/P (MAP) Pulse Ox O2 Delivery O2 Flow Rate FiO2 07/24/18 14:00 97.6 67 18 140/75 (96) 92 Laboratory Data CBC/BMP Laboratory Tests 07/24/18 06:43 Calcium Level 8.8 Labs 24H Laboratory Tests 2 07/23/18 16:41: Bedside Glucose (Misc Panel) 101 07/23/18 20:04: Bedside Glucose (Misc Panel) 110 07/23/18 22:00: Urine Appearance CLOUDYH, Urine Color YELLOW, Urine pH 5.0, Urine Specific [place] 1.023, Urine Protein NEGATIVE, Urine Glucose (UA) NEGATIVE, Urine Ketones NEGATIVE, Urine Urobilinogen 0.2, Urine Bilirubin NEGATIVE, Urine Leukocyte Esterase NEGATIVE, Urine Blood NEGATIVE, Urine Nitrite NEGATIVE, Urine WBC (Auto) 2, Urine RBC (Auto) 2, Urine Hyaline Casts (Auto) 0, Urine Bacteria (Auto) NEGATIVE, Urine Squamous Epithelial Cells 0, Urine Uric Acid Crystals (Auto) SMALL, Urine Mucus (Auto) SMALL, Urine Sperm (Auto) 07/24/18 05:40: Bedside Glucose (Misc Panel) 123H 07/24/18 06:43: Anion Gap 5L, Glomerular Filtration Rate 43.8, Blood Urea Nitrogen 34H, Creatinine 1.64H, Sodium Level 140, Potassium Level 4.2, Chloride Level 108H, Carbon Dioxide Level 27, Calcium Level 8.8 07/24/18 11:47: Bedside Glucose (Misc Panel) 115H Microbiology Microbiology 07/23/18 Urine Culture, Received Pending Current Medications Current Medications Current Medications Acetaminophen (Tylenol Tab) 650 mg Q4HP PRN PO fever/MILD PAIN (PS 1-4); Start 07/20/18 at 16:30 Amlodipine Besylate (Norvasc) 10 mg DAILY PO Last administered on 07/24/18 09:09; Start 07/21/18 at 09:00 Aspirin (Aspirin Chewable) 81 mg DAILY PO Last administered on 07/24/18 09:08; Start 07/21/18 at 09:00 Atorvastatin Calcium (Lipitor) 80 mg DAILY PO Last administered on 07/24/18at 09:08; Start 07/21/18 at 09:00 Bisacodyl (Dulcolax Suppository) 10 mg DAILYPRN PRN [place] CONSTIPATION; Start 07/20/18 at 16:30 Clopidogrel Bisulfate (PLAVix) 75 mg DAILY PO Last administered on 07/24/18at 09:08; Start 07/21/18 at 09:00 Dextrose (Dextrose 50%) 25 ml ASDIRECTED PRN IV SEE LABEL COMMENTS; Start 07/20/18 at 16:30 Docusate Sodium (Colace) 100 mg BID PO Last administered on 07/23/18at 09:21; Start 07/20/18 at 21:00 Enoxaparin Sodium (Lovenox) 40 mg DAILY SC Last administered on 07/24/18 09:07; Start 07/21/18 at 09:00 Fluoxetine HCl (PROzac) 20 mg DAILY PO Last administered on 07/24/18 09:08; Start 07/21/18 at 09:00 Glucagon (Glucagon) 1 mg ASDIRECTED PRN SC SEE LABEL COMMENTS; Start 07/20/18 at 16:30 Glucose (Glucose) 16 GM ASDIRECTED PRN PO SEE LABEL COMMENTS; Start 07/20/18 at 16:30 Home Med (Med Rec Complete!) ASDIRECTED XX ; Start 07/20/18 at 17:30; Stop 07/20/18 at 17:30; Status DC Insulin Detemir (Levemir Insulin) 5 units QHS SC Last administered on 07/23/18at 21:51; Start 07/20/18 at 21:00 Insulin Human Lispro (HumaLOG INSULIN) SEE PROTOCOL TABLE AC SC Last administered on 07/24/18at 12:06; Start 07/20/18 at 17:30 Losartan Potassium (Cozaar) 25 mg DAILY PO ; Start 07/21/18 at 09:00; Stop 07/21/18 at 09:00; Status DC Losartan Potassium (Cozaar) 25 mg DAILY@1000 PO Last administered on 07/24/18at 10:37; Start 07/21/18 at 10:00 Magnesium Hydroxide (Milk Of Magnesia) 30 ml DAILYPRN PRN PO CONSTIPATION; Start 07/20/18 at 16:30 Ondansetron HCl (Zofran) 4 mg Q6HP PRN PO NAUSEA; Start 07/20/18 at 16:30 Pantoprazole Sodium (Protonix) 40 mg DAILY PO Last administered on 07/24/18at 09:08; Start 07/21/18 at 09:00 Senna (Senokot) 1 tab QHS PO Last administered on 07/22/18at 20:49; Start 07/20/18 at 21:00 RENNY GUZMAN MD Jul 24, 2018 16:27
--- NOTE | 2018-07-24 16:29 | IPNPDOC ---
PM&R Progress Note DATE OF SERVICE: Jul 24, 2018 Wastewater Treatment Engineer Progress Note Subjective: Patient understands why it is important to stay and get intensive rehab and is willing to work with the team. He is able to ambulate 40 feet with assistance. REVIEW OF SYSTEMS: The following is a completed review of systems and has been reviewed. Review of systems otherwise unremarkable. PAIN: Patient self reports no pain. EYES: Negative fo recent vision loss EARS, NOSE, & THROAT: +dysphagia CARDIOVASCULAR:denies chest pain or palpitations PULMONARY: Negative. Denies shortness of breath GASTROINTESTINAL: Negative for diarrhea or constipation GENITOURINARY: Negative for dysuria or hematuria NEUROLOGICAL: +stroke with dysphagia, dysarthria, and right sided paresis HEMATOLOGICAL: Negative SKIN: intact PSYCHIATRIC: Unremarkable. All other review of systems found to be negative. PHYSICAL EXAMINATION: VITAL SIGNS: Please see below. GENERAL: Pleasant and cooperative. No acute distress. HEENT: PERRL. Extraocular movements intact. Clear conjunctiva, glasses, visual collins intact CARDIOVASCULAR: Regular rate and rhythm. No murmurs, rubs, or gallops. LUNGS: Clear to auscultation bilaterally. No wheezes. No rhonchi. ABDOMEN: Soft, nontender, nondistended. Positive bowel sounds. Normal active bowel sounds NEUROLOGICAL: Alert and oriented times three. Cranial nerves II through XII grossly intact, right eyebrow sparing facial droop, +dysarthria, non-fluent aphasia, comprehension intact, no anomia, no dysmetria on the left EXTREMITIES: 3/5 right elbow flexors, 2/5 elbow extensors, 2/5 wrist extension, 2/5 senior solutions consultant 5\5 strength left upper extremities. 2/5 right hip flexors, 3/5 knee extensor, 3+/5 ankle DF and EHL. 5/5 strength in left lower extremity. Decreased sensation to light touch RUE and RLE SKIN: intact ASSESSMENT:73-year-old M with past medical history of HTN, CAD who presents status post left pontine stroke. PLAN: 1. Rehab: PT, OT COUNTER ATTENDANT and assess for DME needs, ambulating with platform RW with assistance, diet upgraded to mechanical soft and thins, getting more return in RUE- will trial constraint induced movement therapy 2. Neuro: s/p left pontine infarct with RUE and RLE paresis with dysphagia tho ught to be [id number] thromboembolic due to severe intracerebral stenosis, continue ASA-Plavix, statin, and BP meds, goal BP will be 130-140s given risk of hypoperfusion, medicine consulted -Prozac for mood and motor recovery 3. Cardio: pmh HTn and CAd s/p 4 vessels, continue antiplatelet therapy and Amlodipine and Losartan, monitor and adjust as needed 4. Resp: encourage incentive spirometry, monitor for aspiration and infeciton 5. Endo: pmh DM continue insulin 6. DVT ppx: Lovenox and TEDs 7. : monitor pVRs and follow up admission UA and Ucx 8. GI ppx; protonix 9. Dispo: 08/06/18 to home Allergies Coded Allergies: No Known Allergies (Unverified , 07/20/18) Vital Signs Vital Signs Date Time Temp Pulse Resp B/P (MAP) Pulse Ox O2 Delivery O2 Flow Rate FiO2 07/24/18 14:00 97.6 67 18 140/75 (96) 92 Laboratory Data CBC/BMP Laboratory Tests 07/24/18 06:43 Calcium Level 8.8 Labs 24H Laboratory Tests 2 07/23/18 16:41: Bedside Glucose (Misc Panel) 101 07/23/18 20:04: Bedside Glucose (Misc Panel) 110 07/23/18 22:00: Urine Appearance CLOUDYH, Urine Color YELLOW, Urine pH 5.0, Urine Specific [place] 1.023, Urine Protein NEGATIVE, Urine Glucose (UA) NEGATIVE, Urine Ketones NEGATIVE, Urine Urobilinogen 0.2, Urine Bilirubin NEGATIVE, Urine Leukocyte Esterase NEGATIVE, Urine Blood NEGATIVE, Urine Nitrite NEGATIVE, Urine WBC (Auto) 2, Urine RBC (Auto) 2, Urine Hyaline Casts (Auto) 0, Urine Bacteria (Auto) NEGATIVE, Urine Squamous Epithelial Cells 0, Urine Uric Acid Crystals (Au to) SMALL, Urine Mucus (Auto) SMALL, Urine Sperm (Auto) 07/24/18 05:40: Bedside Glucose (Misc Panel) 123H 07/24/18 06:43: Anion Gap 5L, Glomerular Filtration Rate 43.8, Blood Urea Nitrogen 34H, Creatinine 1.64H, Sodium Level 140, Potassium Level 4.2, Chloride Level 108H, Carbon Dioxide Level 27, Calcium Level 8.8 07/24/18 11:47: Bedside Glucose (Misc Panel) 115H Microbiology Microbiology 07/23/18 Urine Culture, Received Pending Current Medications Current Medications Current Medications Acetaminophen (Tylenol Tab) 650 mg Q4HP PRN PO fever/MILD PAIN (PS 1-4); Start 07/20/18 at 16:30 Amlodipine Besylate (Norvasc) 10 mg DAILY PO Last administered on 07/24/18at 09:09; Start 07/21/18 at 09:00 Aspirin (Aspirin Chewable) 81 mg DAILY PO Last administered on 07/24/18at 09:08; Start 07/21/18 at 09:00 Atorvastatin Calcium (Lipitor) 80 mg DAILY PO Last administered on 07/24/18at 09:08; Start 07/21/18 at 09:00 Bisacodyl (Dulcolax Suppository) 10 mg DAILYPRN PRN [place] CONSTIPATION; Start 07/20/18 at 16:30 Clopidogrel Bisulfate (PLAVix) 75 mg DAILY PO Last administered on 07/24/18at 09:08; Start 07/21/18 at 09:00 Dextrose (Dextrose 50%) 25 ml ASDIRECTED PRN IV SEE LABEL COMMENTS; Start 07/20/18 at 16:30 Docusate Sodium (Colace) 100 mg BID PO Last administered on 07/23/18at 09:21; Start 07/20/18 at 21:00 Enoxaparin Sodium (Lovenox) 40 mg DAILY SC Last administered on 07/24/18at 09:07; Start 07/21/18 at 09:00 Fluoxetine HCl (PROzac) 20 mg DAILY PO Last administered on 07/24/18at 09:08; Start 07/21/18 at 09:00 Glucagon (Glucagon) 1 mg ASDIRECTED PRN SC SEE LABEL COMMENTS; Start 07/20/18 at 16:30 Glucose (Glucose) 16 GM ASDIRECTED PRN PO SEE LABEL COMMENTS; Start 07/20/18 at 16:30 Home Med (Med Rec Complete!) ASDIRECTED XX ; Start 07/20/18 at 17:30; Stop 07/20/18 at 17:30; Status DC Insulin Detemir (Levemir Insulin) 5 units QHS SC Last administered on 07/23/18at 21:51; Start 07/20/18 at 21:00 Insulin Human Lispro (HumaLOG INSULIN) SEE PROTOCOL TABLE AC SC Last administered on 07/24/18at 12:06; Start 07/20/18 at 17:30 Losartan Potassium (Cozaar) 25 mg DAILY PO ; Start 07/21/18 at 09:00; Stop 07/21/18 at 09:00; Status DC Losartan Potassium (Cozaar) 25 mg DAILY@1000 PO Last administered on 07/24/18at 10:37; Start 07/21/18 at 10:00 Magnesium Hydroxide (Milk Of Magnesia) 30 ml DAILYPRN PRN PO CONSTIPATION; Start 07/20/18 at 16:30 Ondansetron HCl (Zofran) 4 mg Q6HP PRN PO NAUSEA; Start 07/20/18 at 16:30 Pantoprazole Sodium (Protonix) 40 mg DAILY PO Last administered on 07/24/18at 09:08; Start 07/21/18 at 09:00 Senna (Senokot) 1 tab QHS PO Last administered on 07/22/18at 20:49; Start 07/20/18 at 21:00 RENNY GUZMAN MD Jul 24, 2018 16:29
[2018-07-24 20:00] VITALS: BP 113/55
[2018-07-24] MEDS: SENNA 8.6 MG TAB (SENOKOT) PO SCH (20:21)
[2018-07-24] MEDS: LEVEMIR (INSULIN DETEMIR) 1 UNITS/0.01ML SC SCH (20:21)
[2018-07-25 06:00] VITALS: BP 136/78
[2018-07-25] MEDS: ENOXAPARIN 40 MG/0.4 ML SYRINGE (J1650) SC SCH (08:48)
[2018-07-25] MEDS: amLODIPine 10 MG TAB PO SCH (08:48)
[2018-07-25] MEDS: ASPIRIN 81 MG CHEW TABLET PO SCH (08:48)
[2018-07-25] MEDS: DOCUSATE SODIUM 100 MG CAP PO SCH ×2 (08:48→20:30)
[2018-07-25] MEDS: CLOPIDOGREL 75 MG TAB PO SCH (08:49)
[2018-07-25] MEDS: LOSARTAN 25 MG TAB PO SCH (08:49)
[2018-07-25] MEDS: FLUoxetine 20 MG CAP PO SCH (08:49)
[2018-07-25] MEDS: PANTOPRAZOLE 40MG TAB (PROTONIX) PO SCH (08:49)
[2018-07-25] MEDS: HumaLOG INSULIN (NovoLOG) PER UNIT SC SCH ×3 (08:50→17:22)
[2018-07-25] MEDS: ATORVASTATIN 20 MG TAB PO SCH (08:50)
[2018-07-25 14:00] VITALS: BP 128/66
--- NOTE | 2018-07-25 14:26 | IPNPDOC ---
Date Seen The patient was seen on 07/25/18. Progress Note HPI:The patient is a 73-year-old right-handed male, who initially presented to [facility] on 07/16/18. At the time, he presented with right-sided facial droop, as well as right hemiparesis. He had undergo an extensive evaluation at their facility including echocardiogram with negative bubble study. Preserved ejection fraction. At the end of their work up, he was noted to have severe distal M3 stenosis, as well as right vertebral stenosis at C5, which they feel to be the etiology of his right pontine cerebrovascular accident (CVA). The patient had noticed some improvement in his symptoms over the last several days while being hospitalized. He was been transferred to the care of ARU, Dr Ross, 07/20/18. The patient has been out of bed with therapy. He has no verbalized complaints at this time. He denies chest pain, shortness of breath, abdominal pain, nausea, vomiting, diarrhea, or urinary complaints. PAST MEDICAL HISTORY: 1. Hypertension. 2. Diabetes. 3. Coronary artery disease, status post coronary artery bypass graft (CABG), four vessels 4. CKD3 PE: GEN: 73yoF, appears stated age. Alert and oriented x 3. Pleasant, interactive. HEENT: Normocephalic, atraumatic. Sclera are nonicteric. Conjunctiva without injection. Moist mucous membranes. Rt facial droop noted. CHEST: Regular rate and rhythm, +S1, +S2 LUNGS: Clear to auscultation bilaterally. No wheezes, rales, or rhonchi. ABD: Round, soft, non-tender, non-distended. +Bowel sounds throughout. EXT: No lower extremity edema appreciated. SKIN: [place], dry, warm. No rashes. NEURO: Alert and oriented x 3. Dysarthria noted. Rt hemiparesis. A&P: The patient is a 73-year-old right-handed male, who initially presented to [facility] on 07/16/18. At the time, he presented with right-sided facial droop, as well as right hemiparesis. He had undergo an extensive evaluation at their facility including echocardiogram with negative bubble study. Preserved ejection fraction. At the end of their work up, he was noted to have severe distal M3 stenosis, as well as right vertebral stenosis at C5, which they feel to be the etiology of his right pontine cerebrovascular acci dent (CVA). The patient had noticed some improvement in his symptoms over the last several days while being hospitalized. He was been transferred to the care of ARU, Dr Ross, 07/20/18. 1. 1. Right pontine cerebrovascular accident (CVA). Mgmt as per ARU. Outpt F/U with Neurology. PT/OT/ST as per ARU. Pain control/Bowel care as per ARU. DVT prophylaxis. Pt on Lovenox. Disposition as per ARU. Continue Aspirin 81mg, Plavix 75mg, Lipitor 80mg. 2. Type 2 diabetes. CC diet. SSI Levemir. 3. Hypertension. Cozaar 25 mg daily. Norvasc 10 mg daily. Blood pressure appears controlled Monitor. 4. Coronary artery disease. Continue aspirin and statin. He is not on a beta duncan. HR trend noted to be 55-72 bpm. 5. CKD. Appears to be at baseline 1.5-1.6. BMP in AM. VS, I&O, 24H, Fishbone Vital Signs/I&O Vital Signs Date Time Temp Pulse Resp B/P (MAP) Pulse Ox O2 Delivery O2 Flow Rate FiO2 07/25/18 08:49 136/78 07/25/18 08:48 56 07/25/18 06:00 98.1 19 92 I&O- Last 24 Hours up to 6 AM 07/25/18 06:00 Intake Total 840 ml Output Total 875 ml Balance -35 ml Laboratory Data 24H LABS Laboratory Tests 2 07/24/18 16:44: Bedside Glucose (Misc Panel) 158H 07/24/18 20:11: Bedside Glucose (Misc Panel) 144H 07/25/18 05:28: Bedside Glucose (Misc Panel) 117H 07/25/18 11:51: Bedside Glucose (Misc Panel) 121H Microbiology Microbiology 07/23/18 Urine Culture - Final, Complete Jolynn Cobos Jul 25, 2018 14:26
[2018-07-25 20:00] VITALS: BP 139/73
[2018-07-25] MEDS: LEVEMIR (INSULIN DETEMIR) 1 UNITS/0.01ML SC SCH (20:30)
[2018-07-25] MEDS: SENNA 8.6 MG TAB (SENOKOT) PO SCH (20:30)
--- NOTE | 2018-07-25 21:42 | IPNPDOC ---
PM&R Progress Note DATE OF SERVICE: Jul 25, 2018 Topstitcher Lockstitch Progress Note Subjective: Patient seen in therapy states he feels well and remains very motivated to get home. REVIEW OF SYSTEMS: The following is a completed review of systems and has been reviewed. Review of systems otherwise unremarkable. PAIN: Patient self reports no pain. EYES: Negative fo recent vision loss EARS, NOSE, & THROAT: +dysphagia CARDIOVASCULAR:denies chest pain or palpitations PULMONARY: Negative. Denies shortness of breath GASTROINTESTINAL: Negative for diarrhea or constipation GENITOURINARY: Negative for dysuria or hematuria NEUROLOGICAL: +stroke with dysphagia, dysarthria, and right sided paresis HEMATOLOGICAL: Negative SKIN: intact PSYCHIATRIC: Unremarkable. All other review of systems found to be negative. PHYSICAL EXAMINATION: VITAL SIGNS: Please see below. GENERAL: Pleasant and cooperative. No acute distress. HEENT: PERRL. Extraocular movements intact. Clear conjunctiva, glasses, visual collins intact CARDIOVASCULAR: Regular rate and rhythm. No murmurs, rubs, or gallops. LUNGS: Clear to auscultation bilaterally. No wheezes. No rhonchi. ABDOMEN: Soft, nontender, nondistended. Positive bowel sounds. Normal active bowel sounds NEUROLOGICAL: Alert and oriented times three. Cranial nerves II through XII grossly intact, right eyebrow sparing facial droop, +dysarthria, non-fluent aphasia, comprehension intact, no anomia, no dysmetria on the left EXTREMITIES: 3/5 right elbow flexors, 2/5 elbow extensors, 2/5 wrist extension, 2/5 shoe packer 5\5 strength left upper extremities. 2/5 right hip flexors, 3/5 knee extensor, 3+/5 ankle DF and EHL. 5/5 strength in left lower extremity. Decreased sensation to light touch RUE and RLE SKIN: intact ASSESSMENT:73-year-old M with past medical history of HTN, CAD who presents status post left pontine stroke. PLAN: 1. 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 Neuro: s/p left pontine infarct with RUE and RLE paresis with dysphagia thought to be [id number] thromboembolic due to severe intracerebral stenosis, continue ASA-Plavix, statin, and BP meds, goal BP will be 130-140s given risk of hypoperfusion, medicine consulted -Prozac for mood and motor recovery 3. Cardio: pmh HTn and CAd s/p 4 vessels, continue antiplatelet therapy and Amlodipine and Losartan, monitor and adjust as needed 4. Resp: encourage incentive spirometry, monitor for aspiration and infeciton-stable 5. Endo: pmh DM continue insulin 6. DVT ppx: Lovenox and TEDs 7. : admission UA and Ucx negative, voiding well 8. GI ppx; protonix 9. Dispo: 08/06/18 to home Allergies Coded Allergies: No Known Allergies (Unverified , 07/20/18) Vital Signs Vital Signs Date Time Temp Pulse Resp B/P (MAP) Pulse Ox O2 Delivery O2 Flow Rate FiO2 07/25/18 14:00 97.5 59 18 128/66 (86) 92 Laboratory Data Labs 24H Laboratory Tests 2 07/25/18 05:28: Bedside Glucose (Misc Panel) 117H 07/25/18 11:51: Bedside Glucose (Misc Panel) 121H 07/25/18 16:31: Bedside Glucose (Misc Panel) 142H 07/25/18 20:02: Bedside Glucose (Misc Panel) 140H Microbiology Microbiology 07/23/18 Urine Culture - Final, Complete Current Medications Current Medications Current Medications Acetaminophen (Tylenol Tab) 650 mg Q4HP PRN PO fever/MILD PAIN (PS 1-4); Start 07/20/18 at 16:30 Amlodipine Besylate (Norvasc) 10 mg DAILY PO Last administered on 07/25/18at 08:48; Start 07/21/18 at 09:00 Aspirin (Aspirin Chewable) 81 mg DAILY PO Last administered on 07/25/18at 08:48; Start 07/21/18 at 09:00 Atorvastatin Calcium (Lipitor) 80 mg DAILY PO Last administered on 07/25/18at 08:50; Start 07/21/18 at 09:00 Bisacodyl (Dulcolax Suppository) 10 mg DAILYPRN PRN [place] CONSTIPATION; Start 07/20/18 at 16:30 Clopidogrel Bisulfate (PLAVix) 75 mg DAILY PO Last administered on 07/25/18at 08:49; Start 07/21/18 at 09:00 Dextrose (Dextrose 50%) 25 ml ASDIRECTED PRN IV SEE LABEL COMMENTS; Start 07/20/18 at 16:30 Docusate Sodium (Colace) 100 mg BID PO Last administered on 07/25/18 20:30; Start 07/20/18 at 21:00 Enoxaparin Sodium (Lovenox) 40 mg DAILY SC Last administered on 07/25/18 08:48; Start 07/21/18 at 09:00 Fluoxetine HCl (PROzac) 20 mg DAILY PO Last administered on 07/25/18 08:49; Start 07/21/18 at 09:00 Glucagon (Glucagon) 1 mg ASDIRECTED PRN SC SEE LABEL COMMENTS; Start 07/20/18 at 16:30 Glucose (Glucose) 16 GM ASDIRECTED PRN PO SEE LABEL COMMENTS; Start 07/20/18 at 16:30 Home Med (Med Rec Complete!) ASDIRECTED XX ; Start 07/20/18 at 17:30; Stop 07/20/18 at 17:30; Status DC Insulin Detemir (Levemir Insulin) 5 units QHS SC Last administered on 07/25/18 20:30; Start 07/20/18 at 21:00 Insulin Human Lispro (HumaLOG INSULIN) SEE PROTOCOL TABLE AC SC Last administered on 07/25/18 17:22; Start 07/20/18 at 17:30 Losartan Potassium (Cozaar) 25 mg DAILY PO ; Start 07/21/18 at 09:00; Stop 07/21/18 at 09:00; Status DC Losartan Potassium (Cozaar) 25 mg DAILY@1000 PO Last administered on 07/25/18at 08:49; Start 07/21/18 at 10:00 Magnesium Hydroxide (Milk Of Magnesia) 30 ml DAILYPRN PRN PO CONSTIPATION; Start 07/20/18 at 16:30 Ondansetron HCl (Zofran) 4 mg Q6HP PRN PO NAUSEA; Start 07/20/18 at 16:30 Pantoprazole Sodium (Protonix) 40 mg DAILY PO Last administered on 07/25/18 08:49; Start 07/21/18 at 09:00 Senna (Senokot) 1 tab QHS PO Last administered on 07/25/18 20:30; Start 2/8/19 at 21:00 RENNY GUZMAN MD Jul 25, 2018 21:42
[2018-07-26 05:20] VITALS: BP 136/74
[2018-07-26] MEDS: HumaLOG INSULIN (NovoLOG) PER UNIT SC SCH ×3 (07:30→17:25)
[2018-07-26 07:36] LABS: CALCIUM LEVEL 8.9 MG/DL (8.8-10.2); CREATININE FOR GFR 1.57 MG/DL (0.70-1.30); GLOMERULAR FILTRATION RATE 46.1 (>42); POTASSIUM SERUM 4.1 MEQ/L (3.5-5.1)
[2018-07-26] MEDS: PANTOPRAZOLE 40MG TAB (PROTONIX) PO SCH (10:00)
[2018-07-26] MEDS: CLOPIDOGREL 75 MG TAB PO SCH (10:00)
[2018-07-26] MEDS: amLODIPine 10 MG TAB PO SCH (10:01)
[2018-07-26] MEDS: ATORVASTATIN 20 MG TAB PO SCH (10:02)
[2018-07-26] MEDS: LOSARTAN 25 MG TAB PO SCH (10:02)
[2018-07-26] MEDS: FLUoxetine 20 MG CAP PO SCH (10:02)
[2018-07-26] MEDS: DOCUSATE SODIUM 100 MG CAP PO SCH ×2 (10:03→20:54)
[2018-07-26] MEDS: ASPIRIN 81 MG CHEW TABLET PO SCH (10:03)
[2018-07-26] MEDS: ENOXAPARIN 40 MG/0.4 ML SYRINGE (J1650) SC SCH (10:04)
--- NOTE | 2018-07-26 14:03 | IPNPDOC ---
Date Seen The patient was seen on 07/26/18. Progress Note HPI:The patient is a 73-year-old right-handed male, who initially presented to [facility] on 07/16/18. At the time, he presented with right-sided facial droop, as well as right hemiparesis. He had undergo an extensive evaluation at their facility including echocardiogram with negative bubble study. Preserved ejection fraction. At the end of their work up, he was noted to have severe distal M3 stenosis, as well as right vertebral stenosis at C5, which they feel to be the etiology of his right pontine cerebrovascular accident (CVA). He was been transferred to the care of [facility], Dr Ross, 07/20/18. The patient has been out of bed with therapy. He has no verbalized complaints at this time. He denies chest pain, shortness of breath, abdominal pain, nausea, vomiting, diarrhea, or urinary complaints. PAST MEDICAL HISTORY: 1. Hypertension. 2. Diabetes. 3. Coronary artery disease, status post coronary artery bypass graft (CABG), four vessels 4. CKD3 PE: GEN: 73yoF, appears stated age. Alert and oriented x 3. Pleasant, interactive. HEENT: Normocephalic, atraumatic. Sclera are nonicteric. Conjunctiva without injection. Moist mucous membranes. Rt facial droop noted. CHEST: Regular rate and rhythm, +S1, +S2 LUNGS: Clear to auscultation bilaterally. No wheezes, rales, or rhonchi. ABD: Round, soft, non-tender, non-distended. +Bowel sounds throughout. EXT: No lower extremity edema appreciated. SKIN: [place], dry, warm. No rashes. NEURO: Alert and oriented x 3. Dysarthria noted. Rt hemiparesis. A&P: The patient is a 73-year-old right-handed male, who initially presented to [facility] on 07/16/18. At the time, he presented with right-sided facial droop, as well as right hemiparesis. He had undergo an extensive evaluation at their facility including echocardiogram with negative bubble study. Preserved ejection fraction. At the end of their work up, he was noted to have severe distal M3 stenosis, as well as right vertebral stenosis at C5, which they feel to be the etiology of his right pontine cerebrovascular accident (CVA). He was been transferred to the care of [facility], Dr Ross, 07/20/18. 1. Right pontine cerebrovascular accident (CVA). Mgmt as per ARU. Outpt F/U with Neurology. PT/OT/ST as per ARU. Pain control/Bowel care as per ARU. DVT prophylaxis. Pt on Lovenox. Disposition as per ARU. Continue Aspirin 81mg, Plavix 75mg, Lipitor 80mg. 2. Type 2 diabetes. CC diet. SSI Levemir. 3. Hypertension. Cozaar 25 mg daily. Norvasc 10 mg daily. Blood pressure appears controlled Monitor. 4. Coronary artery disease. Continue aspirin and statin. He is not on a beta duncan. HR trend noted to be 55-72 bpm. 5. CKD. SCr 1.57. Appears to be at baseline 1.5-1.6. VS, I&O, 24H, Fishbone Vital Signs/I&O Vital Signs Date Time Temp Pulse Resp B/P (MAP) Pulse Ox O2 Delivery O2 Flow Rate FiO2 07/26/18 10:02 136/74 07/26/18 10:01 62 07/26/18 05:20 98.0 18 95 I&O- Last 24 Hours up to 6 AM 07/26/18 06:00 Intake Total 960 ml Output Total 625 ml Balance 335 ml Laboratory Data 24H LABS Laboratory Tests 2 07/25/18 16:31: Bedside Glucose (Misc Panel) 142H 07/25/18 20:02: Bedside Glucose (Misc Panel) 140H 07/26/18 06:02: Bedside Glucose (Misc Panel) 130H 07/26/18 06:52: Anion Gap 6L, Glomerular Filtration Rate 46.1, Blood Urea Nitrogen 26H, Creatinine 1.57H, Sodium Level 140, Potassium Level 4.1, Chloride Level 107, Carbon Dioxide Level 27, Calcium Level 8.9 07/26/18 12:10: Bedside Glucose (Misc Panel) 182H CBC/BMP Laboratory Tests 07/26/18 06:52 Calcium Level 8.9 Microbiology Microbiology 07/23/18 Urine Culture - Final, Complete Jolynn Cobos Jul 26, 2018 14:02
--- NOTE | 2018-07-26 14:47 | IPNPDOC ---
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 He feels well overall. REVIEW OF SYSTEMS: The following is a completed review of systems and has been reviewed. Review of systems otherwise unremarkable. PAIN: Patient self reports no pain. EYES: Negative fo recent vision loss EARS, NOSE, & THROAT: +dysphagia CARDIOVASCULAR:denies chest pain or palpitations PULMONARY: Negative. Denies shortness of breath GASTROINTESTINAL: Negative for diarrhea or constipation GENITOURINARY: Negative for dysuria or hematuria NEUROLOGICAL: +stroke with dysphagia, dysarthria, and right sided paresis HEMATOLOGICAL: Negative SKIN: intact PSYCHIATRIC: Unremarkable. All other review of systems found to be negative. PHYSICAL EXAMINATION: VITAL SIGNS: Please see below. GENERAL: Pleasant and cooperative. No acute distress. HEENT: PERRL. Extraocular movements intact. Clear conjunctiva, glasses, visual collins intact CARDIOVASCULAR: Regular rate and rhythm. No murmurs, rubs, or gallops. LUNGS: Clear to auscultation bilaterally. No wheezes. No rhonchi. ABDOMEN: Soft, nontender, nondistended. Positive bowel sounds. Normal active bowel sounds NEUROLOGICAL: Alert and oriented times three. Cranial nerves II through XII grossly intact, right eyebrow sparing facial droop, +dysarthria, non-fluent aphasia, comprehension intact, no anomia, no dysmetria on the left EXTREMITIES: 3/5 right elbow flexors, 2/5 elbow extensors, 2/5 wrist extension, 2/5 roll sheeting cutter 5\5 strength left upper extremities. 2/5 right hip flexors, 3/5 knee extensor, 3+/5 ankle DF and EHL. 5/5 strength in left lower extremity. Decreased sensation to light touch RUE and RLE SKIN: intact ASSESSMENT:73-year-old M with past medical history of HTN, CAD who presents status post left pontine stroke. PLAN: 1. 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 Cardio: pmh HTn and CAD s/p 4 vessels, continue antiplatelet therapy and Amlodipine and Losartan, monitor and adjust as needed 4. Resp: encourage incentive spirometry, monitor for aspiration and infection- stable 5. Endo: pmh DM continue insulin 6. DVT ppx: Lovenox and TEDs 7. : admission UA and Ucx negative, voiding well 8. GI ppx; protonix 9. Dispo: 08/06/18 to home Allergies Coded Allergies: No Known Allergies (Unverified , 07/20/18) Vital Signs Vital Signs Date Time Temp Pulse Resp B/P (MAP) Pulse Ox O2 Delivery O2 Flow Rate FiO2 07/26/18 10:02 136/74 07/26/18 10:01 62 07/26/18 05:20 98.0 18 95 Laboratory Data CBC/BMP Laboratory Tests 07/26/18 06:52 Calcium Level 8.9 Labs 24H Laboratory Tests 2 07/25/18 16:31: Bedside Glucose (Misc Panel) 142H 07/25/18 20:02: Bedside Glucose (Misc Panel) 140H 07/26/18 06:02: Bedside Glucose (Misc Panel) 130H 07/26/18 06:52: Anion Gap 6L, Glomerular Filtration Rate 46.1, Blood Urea Nitrogen 26H, Creatinine 1.57H, Sodium Level 140, Potassium Level 4.1, Chloride Level 107, Carbon Dioxide Level 27, Calcium Level 8.9 07/26/18 12:10: Bedside Glucose (Misc Panel) 182H Microbiology Microbiology 07/23/18 Urine Culture - Final, Complete Current Medications Current Medications Current Medications Acetaminophen (Tylenol Tab) 650 mg Q4HP PRN PO fever/MILD PAIN (PS 1-4); Start 07/20/18 at 16:30 Amlodipine Besylate (Norvasc) 10 mg DAILY PO Last administered on 07/26/18at 10:01; Start 07/21/18 at 09:00 Aspirin (Aspirin Chewable) 81 mg DAILY PO Last administered on 07/26/18at 10:03; Start 07/21/18 at 09:00 Atorvastatin Calcium (Lipitor) 80 mg DAILY PO Last administered on 07/26/18at 10:02; Start 07/21/18 at 09:00 Bisacodyl (Dulcolax Suppository) 10 mg DAILYPRN PRN [place] CONSTIPATION; Start 07/20/18 at 16:30 Clopidogrel Bisulfate (PLAVix) 75 mg DAILY PO Last administered on 07/26/18at 10:00; Start 07/21/18 at 09:00 Dextrose (Dextrose 50%) 25 ml ASDIRECTED PRN IV SEE LABEL COMMENTS; Start 07/20/18 at 16:30 Docusate Sodium (Colace) 100 mg BID PO Last administered on 07/26/18at 10:03; Start 07/20/18 at 21:00 Enoxaparin Sodium (Lovenox) 40 mg DAILY SC Last administered on 07/26/18at 10:04; Start 07/21/18 at 09:00 Fluoxetine HCl (PROzac) 20 mg DAILY PO Last administered on 07/26/18at 10:02; Start 07/21/18 at 09:00 Glucagon (Glucagon) 1 mg ASDIRECTED PRN SC SEE LABEL COMMENTS; Start 07/20/18 at 16:30 Glucose (Glucose) 16 GM ASDIRECTED PRN PO SEE LABEL COMMENTS; Start 07/20/18 at 16:30 Home Med (Med Rec Complete!) ASDIRECTED XX ; Start 07/20/18 at 17:30; Stop 07/20/18 at 17:30; Status DC Insulin Detemir (Levemir Insulin) 5 units QHS SC Last administered on 07/25/18at 20:30; Start 07/20/18 at 21:00 Insulin Human Lispro (HumaLOG INSULIN) SEE PROTOCOL TABLE AC SC Last administered on 07/25/18at 17:22; Start 07/20/18 at 17:30 Losartan Potassium (Cozaar) 25 mg DAILY PO ; Start 07/21/18 at 09:00; Stop 07/21/18 at 09:00; Status DC Losartan Potassium (Cozaar) 25 mg DAILY@1000 PO Last administered on 07/26/18at 10:02; Start 07/21/18 at 10:00 Magnesium Hydroxide (Milk Of Magnesia) 30 ml DAILYPRN PRN [place] CONSTIPATION; Start 07/20/18 at 16:30 Ondansetron HCl (Zofran) 4 mg Q6HP PRN PO NAUSEA; Start 07/20/18 at 16:30 Pantoprazole Sodium (Protonix) 40 mg DAILY PO Last administered on 07/26/18at 10:00; Start 07/21/18 at 09:00 Senna (Senokot) 1 tab QHS PO Last administered on 07/25/18at 20:30; Start 07/20/18 at 21:00 RENNY GUZMAN MD Jul 26, 2018 14:46
[2018-07-26 20:00] VITALS: BP 138/69
[2018-07-26] MEDS: SENNA 8.6 MG TAB (SENOKOT) PO SCH (20:54)
[2018-07-26] MEDS: LEVEMIR (INSULIN DETEMIR) 1 UNITS/0.01ML SC SCH (20:55)
[2018-07-27 07:02] LABS: BASO # 0.1 10^3/uL (0.0-0.2); EOS # 0.4 10^3/uL (0.0-0.50); EOS % 5.5 % (0.0-3.0); HEMOGLOBIN 15.4 g/dl (13.5-17.5); LYMPH % 14.5 % (24.0-44.0); MEAN CORPUSCULAR HEMOGLOBIN 29.2 pg (27.0-33.0); MEAN CORPUSCULAR HGB CONC 33.5 g/dl (32.0-36.5); MEAN CORPUSCULAR VOLUME 87.3 fl (80.0-96.0); MONO # 0.7 10^3/uL (0.0-0.8); MONO % 9.4 % (0.0-5.0); NEUTROPHILS # 4.9 10^3/uL (1.8-7.7); NEUTROPHILS % 69.3 % (36.0-66.0); PLATELET COUNT, AUTOMATED 170 10^3/uL (150-450); RED BLOOD COUNT 5.27 10^6/uL (4.30-6.10)
[2018-07-27] MEDS: ENOXAPARIN 40 MG/0.4 ML SYRINGE (J1650) SC SCH (08:43)
[2018-07-27] MEDS: HumaLOG INSULIN (NovoLOG) PER UNIT SC SCH ×3 (08:43→17:12)
[2018-07-27] MEDS: ASPIRIN 81 MG CHEW TABLET PO SCH (08:43)
[2018-07-27] MEDS: amLODIPine 10 MG TAB PO SCH (08:44)
[2018-07-27] MEDS: DOCUSATE SODIUM 100 MG CAP PO SCH ×2 (08:44→20:58)
[2018-07-27] MEDS: CLOPIDOGREL 75 MG TAB PO SCH (08:44)
[2018-07-27] MEDS: ATORVASTATIN 20 MG TAB PO SCH (08:45)
[2018-07-27] MEDS: PANTOPRAZOLE 40MG TAB (PROTONIX) PO SCH (08:45)
[2018-07-27] MEDS: FLUoxetine 20 MG CAP PO SCH (08:45)
[2018-07-27] MEDS: LOSARTAN 25 MG TAB PO SCH (10:50)
[2018-07-27 14:00] VITALS: BP 134/77
--- NOTE | 2018-07-27 14:33 | HPEPDOC ---
[facility] Medical History & Physical Date of Admission Jul 27, 2018 History and Physical HPI:The patient is a 73-year-old right-handed male, who initially presented to [facility] on 07/16/18. At the time, he presented with right-sided facial droop, as well as right hemiparesis. He had undergo an extensive evaluation at their facility including echocardiogram with negative bubble study. Preserved ejection fraction. At the end of their work up, he was noted to have severe distal M3 stenosis, as well as right vertebral stenosis at C5, which they feel to be the etiology of his right pontine cerebrovascular accident (CVA). He was been transferred to the care of [facility], Dr Ross, 07/20/18. The patient has been out of bed with therapy. He has no verbalized complaints at this time. Denies pain. He denies chest pain, shortness of breath, abdominal pain, nausea, vomiting, diarrhea, or urinary complaints. PAST MEDICAL HISTORY: 1. Hypertension. 2. Diabetes. 3. Coronary artery disease, status post coronary artery bypass graft (CABG), four vessels 4. CKD3 PE: GEN: 73yoF, appears stated age. Alert and oriented x 3. Pleasant, interactive. HEENT: Normocephalic, atraumatic. Moist mucous membranes. Rt facial droop noted. CHEST: Regular rate and rhythm, +S1, +S2 LUNGS: Clear to auscultation bilaterally. No wheezes, rales, or rhonchi. ABD: Round, soft, non-tender, non-distended. +Bowel sounds throughout. EXT: No lower extremity edema appreciated. SKIN: [place], dry, warm. No rashes. NEURO: Alert and oriented x 3. Dysarthria noted. Rt hemiparesis. A&P: The patient is a 73-year-old right-handed male, who initially presented to [facility] on 07/16/18. At the time, he presented with right-sided facial droop, as well as right hemiparesis. He had undergo an extensive evaluation at their facility including echocardiogram with negative bubble study. Preserved ejection fraction. At the end of their work up, he was noted to have severe distal M3 stenosis, as well as right vertebral stenosis at C5, which they feel to be the etiology of his right pontine cerebrovascular accident (CVA). He was been transferred to the care of [facility], Dr Ross, 07/20/18. 1. Right pontine cerebrovascular accident (CVA). Mgmt as per [facility]. Outpt F/U with Neurology. PT/OT/ST as per [facility]. Pain control/Bowel care as per [facility]. DVT prophylaxis. Pt on Lovenox. Disposition as per [facility]. Continue Aspirin 81mg, Plavix 75mg, Lipitor 80mg. 2. Type 2 diabetes. CC diet. SSI Levemir. 3. Hypertension. Cozaar 25 mg daily. Norvasc 10 mg daily. BP controlled, 130/66. Monitor. 4. Coronary artery disease. Continue aspirin and statin. He is not on a beta duncan. HR trend noted to be 55-62 bpm. 5. CKD. 07/26 SCr 1.57. Appears to be at baseline 1.5-1.6. Vital Signs Vital Signs Date Time Temp Pulse Resp B/P (MAP) Pulse Ox O2 Delivery O2 Flow Rate FiO2 07/27/18 10:50 130/66 07/27/18 08:44 57 07/27/18 06:00 97.2 18 96 Laboratory Data Labs 24H Laboratory Tests 2 07/26/18 17:18: Bedside Glucose (Misc Panel) 81L 07/26/18 20:05: Bedside Glucose (Misc Panel) 144H 07/27/18 06:07: Immature Granulocyte % (Auto) 0.3, White Blood Count 7.0, Red Blood Count 5.27, Hemoglobin 15.4, Hematocrit 46.0, Mean Corpuscular Volume 87.3, Mean Corpuscular Hemoglobin 29.2, Mean Corpuscular Hemoglobin Concent 33.5, Red Cell Distribution Width 13.5, Platelet Count 170, Neutrophils (%) (Auto) 69.3H, Lymphocytes (%) (Auto) 14.5L, Monocytes (%) (Auto) 9.4H, Eosinophils (%) (Auto) 5.5H, Basophils (%) (Auto) 1.0, Neutrophils # (Auto) 4.9, Lymphocytes # (Auto) 1.0L, Monocytes # (Auto) 0.7, Eosinophils # (Auto) 0.4, Basophils # (Auto) 0.1, Nucleated Red Blood Cells % (auto) 0.0 07/27/18 06:16: Bedside Glucose (Misc Panel) 149H 07/27/18 12:15: Bedside Glucose (Misc Panel) 101 CBC/BMP Laboratory Tests 07/27/18 06:07 Red Blood Count 5.27, Mean Corpuscular Volume 87.3, Mean Corpuscular Hemoglobin 29.2, Mean Corpuscular Hemoglobin Concent 33.5, Red Cell Distribution Width 13.5, Neutrophils (%) (Auto) 69.3 H, Lymphocytes (%) (Auto) 14.5 L, Monocytes (%) (Auto) 9.4 H, Eosinophils (%) (Auto) 5.5 H, Basophils (%) (Auto) 1.0, Neutrophils # (Auto) 4.9, Lymphocytes # (Auto) 1.0 L, Monocytes # (Auto) 0.7, Eosinophils # (Auto) 0.4, Basophils # (Auto) 0.1 Microbiology Microbiology 07/23/18 Urine Culture - Final, Complete Home Medications Scheduled (Aspirin) 81 Mg Chw, 81 MG PO DAILY Amlodipine Besylate (Amlodipine Besylate) 10 Mg Tab, 10 MG PO DAILY Atorvastatin Calcium (Atorvastatin Calcium) 80 Mg Tab, 80 MG PO DAILY Clopidogrel Bisulfate (Clopidogrel) 75 Mg Tab, 75 MG PO DAILY Docusate Sodium (Docusate Sodium) 100 Mg Cap, 100 MG PO BID Losartan Potassium (Losartan Potassium) 25 Mg Tab, 25 MG PO DAILY Metformin Hydrochloride (Metformin HCl) 1,000 Mg Tab, 1,000 MG PO QAM Scheduled PRN Polyethylene Glycol (Miralax) 1 Pow Pow, 17 GM PO DAILY PRN for CONSTIPATION dilute in 8 ounces of water or juice Allergies Coded Allergies: No Known Allergies (Unverified , 07/20/18) Jolynn Cobos Jul 27, 2018 14:33
--- NOTE | 2018-07-27 15:00 | NUR ---
Training with overarticulation, Be Clear speech strategies, and self monitoring in word, sentence, and conversation tasks. Mod cues for sentence task and mod-max for conversation. Responded well to education regarding implementation of strategies in more complex contexts. Addendum: 07/27/18 at 1502 by CECILLE CARLTON SSV SP Amended: Links added.
--- NOTE | 2018-07-27 15:39 | IPNPDOC ---
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 REVIEW OF SYSTEMS: The following is a completed review of systems and has been reviewed. Review of systems otherwise unremarkable. PAIN: Patient self reports no pain. EYES: Negative fo recent vision loss EARS, NOSE, & THROAT: +dysphagia CARDIOVASCULAR:denies chest pain or palpitations PULMONARY: Negative. Denies shortness of breath GASTROINTESTINAL: Negative for diarrhea or constipation GENITOURINARY: Negative for dysuria or hematuria NEUROLOGICAL: +stroke with dysphagia, dysarthria, and right sided paresis HEMATOLOGICAL: Negative SKIN: intact PSYCHIATRIC: Unremarkable. All other review of systems found to be negative. PHYSICAL EXAMINATION: VITAL SIGNS: Please see below. GENERAL: Pleasant and cooperative. No acute distress. HEENT: PERRL. Extraocular movements intact. Clear conjunctiva, glasses, visual collins intact CARDIOVASCULAR: Regular rate and rhythm. No murmurs, rubs, or gallops. LUNGS: Clear to auscultation bilaterally. No wheezes. No rhonchi. ABDOMEN: Soft, nontender, nondistended. Positive bowel sounds. Normal active bowel sounds NEUROLOGICAL: Alert and oriented times three. Cranial nerves II through XII grossly intact, right eyebrow sparing facial droop, +dysarthria, non-fluent aphasia, comprehension intact, no anomia, no dysmetria on the left EXTREMITIES: 3/5 right elbow flexors, 2/5 elbow extensors, 2/5 wrist extension, 2/5 conference center manager 5\5 strength left upper extremities. 2/5 right hip flexors, 3/5 knee extensor, 3+/5 ankle DF and EHL. 5/5 strength in left lower extremity. Decreased sensation to light touch RUE and RLE SKIN: intact ASSESSMENT:73-year-old M with past medical history of HTN, CAD who presents status post left pontine stroke. PLAN: 1. 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 Neuro: s/p left pontine infarct with RUE and RLE paresis with dysphagia thought to be [id number] thromboembolic due to severe intracerebral stenosis, continue ASA-Plavix, statin, and BP meds, goal BP will be 130-140s given risk of hypoperfusion, medicine consulted-stable -Prozac for mood and motor recovery 3. Cardio: pmh HTn and CAD s/p 4 vessels, continue antiplatelet therapy and Amlodipine and Losartan, monitor and adjust as needed 4. Resp: encourage incentive spirometry, monitor for aspiration and infection- stable 5. Endo: pmh DM continue insulin 6. DVT ppx: Lovenox and TEDs 7. : admission UA and Ucx negative, voiding well 8. GI ppx; protonix 9. Dispo: 08/06/18 to home, progressing towards goals Allergies Coded Allergies: No Known Allergies (Unverified , 07/20/18) Vital Signs Vital Signs Date Time Temp Pulse Resp B/P (MAP) Pulse Ox O2 Delivery O2 Flow Rate FiO2 07/27/18 14:00 97.9 56 18 134/77 (96) 95 Laboratory Data CBC/BMP Laboratory Tests 07/27/18 06:07 Red Blood Count 5.27, Mean Corpuscular Volume 87.3, Mean Corpuscular Hemoglobin 29.2, Mean Corpuscular Hemoglobin Concent 33.5, Red Cell Distribution Width 13.5, Neutrophils (%) (Auto) 69.3 H, Lymphocytes (%) (Auto) 14.5 L, Monocytes (%) (Auto) 9.4 H, Eosinophils (%) (Auto) 5.5 H, Basophils (%) (Auto) 1.0, Neutrophils # (Auto) 4.9, Lymphocytes # (Auto) 1.0 L, Monocytes # (Auto) 0.7, Eosinophils # (Auto) 0.4, Basophils # (Auto) 0.1 Labs 24H Laboratory Tests 2 07/26/18 17:18: Bedside Glucose (Misc Panel) 81L 07/26/18 20:05: Bedside Glucose (Misc Panel) 144H 07/27/18 06:07: Immature Granulocyte % (Auto) 0.3, White Blood Count 7.0, Red Blood Count 5.27, Hemoglobin 15.4, Hematocrit 46.0, Mean Corpuscular Volume 87.3, Mean Corpuscular Hemoglobin 29.2, Mean Corpuscular Hemoglobin Concent 33.5, Red Cell Distribution Width 13.5, Platelet Count 170, Neutrophils (%) (Auto) 69.3H, Lymphocytes (%) (Auto) 14.5L, Monocytes (%) (Auto) 9.4H, Eosinophils (%) (Auto) 5.5H, Basophils (%) (Auto) 1.0, Neutrophils # (Auto) 4.9, Lymphocytes # (Auto) 1.0L, Monocytes # (Auto) 0.7, Eosinophils # (Auto) 0.4, Basophils # (Auto) 0.1, Nucleated Red Blood Cells % (auto) 0.0 07/27/18 06:16: Bedside Glucose (Misc Panel) 149H 07/27/18 12:15: Bedside Glucose (Misc Panel) 101 Microbiology Microbiology 07/23/18 Urine Culture - Final, Complete Current Medications Current Medications Current Medications Acetaminophen (Tylenol Tab) 650 mg Q4HP PRN PO fever/MILD PAIN (PS 1-4); Start 07/20/18 at 16:30 Amlodipine Besylate (Norvasc) 10 mg DAILY PO Last administered on 07/27/18 08:44; Start 07/21/18 at 09:00 Aspirin (Aspirin Chewable) 81 mg DAILY PO Last administered on 07/27/18 08:43; Start 07/21/18 at 09:00 Atorvastatin Calcium (Lipitor) 80 mg DAILY PO Last administered on 07/27/18 08:45; Start 07/21/18 at 09:00 Bisacodyl (Dulcolax Suppository) 10 mg DAILYPRN PRN [place] CONSTIPATION; Start 07/20/18 at 16:30 Clopidogrel Bisulfate (PLAVix) 75 mg DAILY PO Last administered on 07/27/18at 08:44; Start 07/21/18 at 09:00 Dextrose (Dextrose 50%) 25 ml ASDIRECTED PRN IV SEE LABEL COMMENTS; Start at 16:30 Docusate Sodium (Colace) 100 mg BID PO Last administered on 07/27/18 08:44; Start 07/20/18 at 21:00 Enoxaparin Sodium (Lovenox) 40 mg DAILY SC Last administered on 07/27/18 08:43; Start 07/21/18 at 09:00 Fluoxetine HCl (PROzac) 20 mg DAILY PO Last administered on 07/27/18 08:45; Start 07/21/18 at 09:00 Glucagon (Glucagon) 1 mg ASDIRECTED PRN SC SEE LABEL COMMENTS; Start 07/20/18 at 16:30 Glucose (Glucose) 16 GM ASDIRECTED PRN PO SEE LABEL COMMENTS; Start 07/20/18 at 16:30 Home Med (Med Rec Complete!) ASDIRECTED XX ; Start 07/20/18 at 17:30; Stop 07/20/18 at 17:30; Status DC Insulin Detemir (Levemir Insulin) 5 units QHS SC Last administered on 07/26/18at 20:55; Start 07/20/18 at 21:00 Insulin Human Lispro (HumaLOG INSULIN) SEE PROTOCOL TABLE AC SC Last administered on 07/27/18 08:43; Start 07/20/18 at 17:30 Losartan Potassium (Cozaar) 25 mg DAILY PO ; Start 07/21/18 at 09:00; Stop 07/21/18 at 09:00; Status DC Losartan Potassium (Cozaar) 25 mg DAILY@1000 PO Last administered on 07/27/18at 10:50; Start 07/21/18 at 10:00 Magnesium Hydroxide (Milk Of Magnesia) 30 ml DAILYPRN PRN PO CONSTIPATION; Start 07/20/18 at 16:30 Ondansetron HCl (Zofran) 4 mg Q6HP PRN PO NAUSEA; Start 07/20/18 at 16:30 Pantoprazole Sodium (Protonix) 40 mg DAILY PO Last administered on 07/27/18 08:45; Start 07/21/18 at 09:00 Senna (Senokot) 1 tab QHS PO Last administered on 07/25/18at 20:30; Start 07/20/18 at 21:00 RENNY GUZMAN MD Jul 27, 2018 15:39
[2018-07-27 20:00] VITALS: BP 160/84
[2018-07-27] MEDS: LEVEMIR (INSULIN DETEMIR) 1 UNITS/0.01ML SC SCH (20:58)
[2018-07-27] MEDS: SENNA 8.6 MG TAB (SENOKOT) PO SCH (20:59)
[2018-07-28 06:00] VITALS: BP 148/96
[2018-07-28] MEDS: HumaLOG INSULIN (NovoLOG) PER UNIT SC SCH ×3 (09:18→17:23)
[2018-07-28] MEDS: ASPIRIN 81 MG CHEW TABLET PO SCH (09:18)
[2018-07-28] MEDS: amLODIPine 10 MG TAB PO SCH (09:18)
[2018-07-28] MEDS: FLUoxetine 20 MG CAP PO SCH (09:18)
[2018-07-28] MEDS: ENOXAPARIN 40 MG/0.4 ML SYRINGE (J1650) SC SCH (09:18)
[2018-07-28] MEDS: PANTOPRAZOLE 40MG TAB (PROTONIX) PO SCH (09:18)
[2018-07-28] MEDS: ATORVASTATIN 20 MG TAB PO SCH (09:19)
[2018-07-28] MEDS: CLOPIDOGREL 75 MG TAB PO SCH (09:19)
[2018-07-28] MEDS: LOSARTAN 25 MG TAB PO SCH (09:19)
[2018-07-28] MEDS: DOCUSATE SODIUM 100 MG CAP PO SCH ×2 (09:20→21:00)
[2018-07-28 10:30] VITALS: BP 142/84
--- NOTE | 2018-07-28 11:53 | NUR ---
Trial of level 4 solid ([facility]). Education provided regarding modification of bite size, management of holding food within L cheek vs R cheek, management of pocketing prevention in current and d/c environments. Independent management of tongue sweep during trials. Addendum: 07/28/18 at 1155 by CECILLE CARLTON SSV SP Amended: Links added.
--- NOTE | 2018-07-28 11:55 | NUR ---
Training in implementation of strategies in structured conversation. Mod cues necessary for consistent demonstration. Education regarding options for more independent management of speech intelligibility within conversation and unstructured interactions. Addendum: 07/28/18 at 1156 by CECILLE CARLTON SSV SP Amended: Links added.
[2018-07-28 14:00] VITALS: BP 147/81
--- NOTE | 2018-07-28 14:32 | IPNPDOC ---
Text Note Date of Service The patient was seen on 07/28/18. NOTE Subjective: Patient is a 73-year-old right-handed male with a PMHx of CAD s/p 4 vessel CABG, HTN, DM2, DLP and CKD who initially presented to [facility] on 07/16/18. At the time, he presented with right-sided facial droop, as well as right hemiparesis. He had undergo an extensive evaluation at their facility including echocardiogram with a negative bubble study. Preserved ejection fraction. At the end of their work up, he was noted to have severe distal M3 stenosis, as well as right vertebral stenosis at C5, which they feel to be the etiology of his right pontine cerebrovascular accident (CVA). He was been transferred to the care of ARU, Dr Ross, 07/20/18. Patient was seen and examined at the bedside. , Currently patient is been working with physical therapy. Denies any nausea, vomiting, abdominal pain, constipation, diarrhea or discomfort with urination. Denies any chest pain, shortness of breath or palpitations. Objective: Vitals (See below) General: Lying in bed, no acute distress, comfortable, Awake / Alert HEENT: NC, AT CVS: RRR, +S1S2 Lungs: Fair air entry b/l, -w/r/r Abdomen: Soft, ND, NT Extremities: - Edema, - Calf tenderness Neuro: Pronounced weakness at right U/LE Assessment and plan: Right Pontine CVA - Physical still reveals right sided weakens at upper / lower extremity - PT / OT, Pain control, Bowel regimen and disposition as per ARU - c/w ASA, Plavix and Atorvastatin CAD s/p CABG - c/w ASA and Atorvastatin HTN - BP well controlled - c/w Amlodipine, Losartan, DM2 - c/w ISS and Levemir CKD3 - Cr baseline of 1.5-1.6. - Appears to be at baseline Depression - c/w Fluoxetine GERD - c/w Protonix DVT prophylaxis - c/w Lovenox VS,Fishbone, I+O VS, Fishbone, I+O Vital Signs Date Time Temp Pulse Resp B/P (MAP) Pulse Ox O2 Delivery O2 Flow Rate FiO2 07/28/18 10:30 142/84 (103) 07/28/18 09:18 53 07/28/18 06:00 97.7 20 96 I&O- Last 24 Hours up to 6 AM 07/28/18 06:00 Intake Total 990 ml Output Total 650 ml Balance 340 ml STEPHANY PEDRAZA MD Jul 28, 2018 14:31
[2018-07-28 20:00] VITALS: BP 132/75
[2018-07-28] MEDS: SENNA 8.6 MG TAB (SENOKOT) PO SCH (21:00)
[2018-07-28] MEDS: LEVEMIR (INSULIN DETEMIR) 1 UNITS/0.01ML SC SCH (21:09)
[2018-07-29 06:00] VITALS: BP_SYST 145; BP_SYST 147; BP_DIAS 105; BP_DIAS 77
[2018-07-29] MEDS: ENOXAPARIN 40 MG/0.4 ML SYRINGE (J1650) SC SCH (09:53)
[2018-07-29] MEDS: FLUoxetine 20 MG CAP PO SCH (09:53)
[2018-07-29] MEDS: ASPIRIN 81 MG CHEW TABLET PO SCH (09:53)
[2018-07-29] MEDS: ATORVASTATIN 20 MG TAB PO SCH (09:53)
[2018-07-29] MEDS: amLODIPine 10 MG TAB PO SCH (09:54)
[2018-07-29] MEDS: DOCUSATE SODIUM 100 MG CAP PO SCH ×2 (09:54→21:49)
[2018-07-29] MEDS: LOSARTAN 25 MG TAB PO SCH (09:55)
[2018-07-29] MEDS: HumaLOG INSULIN (NovoLOG) PER UNIT SC SCH ×3 (09:55→17:00)
[2018-07-29] MEDS: PANTOPRAZOLE 40MG TAB (PROTONIX) PO SCH (09:55)
[2018-07-29] MEDS: CLOPIDOGREL 75 MG TAB PO SCH (09:55)
--- NOTE | 2018-07-29 10:57 | NUR ---
Training in over-articulation and intelligbility strategy use within structured conversation. Min-mod cues necessary during training. Education provided regarding word/sound combos to be aware of for strategy use to ensure max intelligibility. Edu regarding implementation within less structured scenarios/tasks. Addendum: 07/29/18 at 1058 by CECILLE CARLTON [facility] SP Amended: Links added.
[2018-07-29 12:00] VITALS: BP 140/71
--- NOTE | 2018-07-29 16:22 | IPNPDOC ---
Text Note Date of Service The patient was seen on 07/29/18. NOTE Subjective: Patient is a 73-year-old right-handed male with a PMHx of CAD s/p 4 vessel CABG, HTN, DM2, DLP and CKD who initially presented to [facility] on 07/16/18. At the time, he presented with right-sided facial droop, as well as right hemiparesis. He had undergo an extensive evaluation at their facility including echocardiogram with a negative bubble study. Preserved ejection fraction. At the end of their work up, he was noted to have severe distal M3 stenosis, as well as right vertebral stenosis at C5, which they feel to be the etiology of his right pontine cerebrovascular accident (CVA). He was been transferred to the care of ARU, Dr Ross, 07/20/18. Patient was seen and examined at the bedside. Patient was working with speech therapy. He denies any chest pain, shortness of breath or palpitations. Denies nausea, vomiting, abdominal pain, constipation, diarrhea or discomfort with urination. Objective: Vitals (See below) General: Lying in bed, no acute distress, comfortable, Awake / Alert HEENT: NC, AT CVS: RRR, +S1S2 Lungs: Fair air entry b/l, no evidence of wheezing, rhonchi or rales on auscultation Abdomen: Soft, nondistended, without tenderness Extremities: No evidence of edema, - Calf tenderness Neuro: Pronounced weakness at right U/LE Assessment and plan: Right Pontine CVA - Physical still reveals right sided weakens at upper / lower extremity - PT / OT, Pain control, Bowel regimen and disposition as per ARU - Working with speech therapy - c/w ASA, Plavix and Atorvastatin - no change in plan CAD s/p CABG - c/w ASA and Atorvastatin HTN - BP well controlled - c/w Amlodipine, Losartan DM2 - c/w ISS and Levemir CKD3 - Cr baseline of 1.5-1.6. - Appears to be at baseline Depression - c/w Fluoxetine GERD - c/w Protonix DVT prophylaxis - c/w Lovenox Disposition: - Patient has noted second time that he will be leaving tomorrow - Advised that we will defer that decision to ARU VS,Mateus, I+O VS, Mateus, I+O Vital Signs Date Time Temp Pulse Resp B/P (MAP) Pulse Ox O2 Delivery O2 Flow Rate FiO2 07/29/18 12:00 97.4 67 19 140/71 (94 93 I&O- Last 24 Hours up to 6 AM 07/29/18 06:00 Intake Total 955 ml Output Total 755 ml Balance 200 ml STEPHANY PEDRAZA MD Jul 29, 2018 16:22
[2018-07-29 20:00] VITALS: BP 120/60
[2018-07-29] MEDS: SENNA 8.6 MG TAB (SENOKOT) PO SCH (21:49)
[2018-07-29] MEDS: LEVEMIR (INSULIN DETEMIR) 1 UNITS/0.01ML SC SCH (21:50)
[2018-07-30 06:00] VITALS: BP 130/70
[2018-07-30] MEDS: DOCUSATE SODIUM 100 MG CAP PO SCH ×2 (09:25→21:04)
[2018-07-30] MEDS: ASPIRIN 81 MG CHEW TABLET PO SCH (09:25)
[2018-07-30] MEDS: FLUoxetine 20 MG CAP PO SCH (09:25)
[2018-07-30] MEDS: ENOXAPARIN 40 MG/0.4 ML SYRINGE (J1650) SC SCH (09:25)
[2018-07-30] MEDS: PANTOPRAZOLE 40MG TAB (PROTONIX) PO SCH (09:25)
[2018-07-30] MEDS: HumaLOG INSULIN (NovoLOG) PER UNIT SC SCH ×3 (09:25→17:30)
[2018-07-30] MEDS: CLOPIDOGREL 75 MG TAB PO SCH (09:26)
[2018-07-30] MEDS: ATORVASTATIN 20 MG TAB PO SCH (09:26)
[2018-07-30] MEDS: amLODIPine 10 MG TAB PO SCH (09:32)
[2018-07-30] MEDS: LOSARTAN 25 MG TAB PO SCH (10:19)
--- NOTE | 2018-07-30 12:21 | IPNPDOC ---
Date Seen The patient was seen on 07/30/18. Progress Note HPI:The patient is a 73-year-old right-handed male, who initially presented to [facility] on 07/16/18. At the time, he presented with right-sided facial droop, as well as right hemiparesis. He had undergo an extensive evaluation at their facility including echocardiogram with negative bubble study. Preserved ejection fraction. At the end of their work up, he was noted to have severe distal M3 stenosis, as well as right vertebral stenosis at C5, which they feel to be the etiology of his right pontine cerebrovascular accident (CVA). He was been transferred to the care of TALISHA, Dr Ross, 07/20/18. The patient is OOB to w/c, no verbalized complaints at this time. He denies chest pain, shortness of breath, abdominal pain, nausea, vomiting, diarrhea, or urinary complaints. PAST MEDICAL HISTORY: 1. Hypertension. 2. Diabetes. 3. Coronary artery disease, status post coronary artery bypass graft (CABG), four vessels 4. CKD3 PE: GEN: 73yoF, appears stated age. Alert and oriented x 3. Pleasant, interactive. HEENT: Normocephalic, atraumatic. Sclera are nonicteric. Conjunctiva without injection. Moist mucous membranes. Rt facial droop noted. CHEST: Regular rate and rhythm, +S1, +S2 LUNGS: Clear to auscultation bilaterally. No wheezes, rales, or rhonchi. ABD: Round, soft, non-tender, non-distended. +Bowel sounds throughout. EXT: No lower extremity edema appreciated. SKIN: [place], dry, warm. No rashes. NEURO: Alert and oriented x 3. Dysarthria noted. Rt hemiparesis. A&P: The patient is a 73-year-old right-handed male, who initially presented to [facility] on 07/16/18. At the time, he presented with right-sided facial droop, as well as right hemiparesis. He had undergo an extensive evaluation at their facility including echocardiogram with negative bubble study. Preserved ejection fraction. At the end of their work up, he was noted to have severe distal M3 stenosis, as well as right vertebral stenosis at C5, which they feel to be the etiology of his right pontine cerebrovascular accident (CVA). He was been transferred to the care of TALISHA, Dr Ross, 07/20/18. 1. Right pontine cerebrovascular accident (CVA). Mgmt as per ARU. Outpt F/U with Neurology. PT/OT/ST as per ARU. Pain control/Bowel care as per ARU. DVT prophylaxis. Pt on Lovenox. Disposition as per ARU. Continue Aspirin 81mg, Plavix 75mg, Lipitor 80mg. 2. Type 2 diabetes. CC diet. SSI Levemir. BS [id number] 3. Hypertension. Cozaar 25 mg daily. Norvasc 10 mg daily. Blood pressure appears controlled Monitor. 4. Coronary artery disease. Continue aspirin and statin. He is not on a beta duncan. HR trend noted to be 55-72 bpm. 5. CKD. SCr 1.57. Appears to be at baseline 1.5-1.6. VS, I&O, 24H, Fishbone Vital Signs/I&O Vital Signs Date Time Temp Pulse Resp B/P (MAP) Pulse Ox O2 Delivery O2 Flow Rate FiO2 07/30/18 10:19 141/77 07/30/18 09:32 61 07/30/18 06:00 98.6 18 95 I&O- Last 24 Hours up to 6 AM 07/30/18 06:00 Intake Total 520 ml Output Total 1625 ml Balance -1105 ml Laboratory Data 24H LABS Laboratory Tests 2 07/29/18 17:00: Bedside Glucose (Misc Panel) 89 07/29/18 20:18: Bedside Glucose (Misc Panel) 136H 07/30/18 06:27: Bedside Glucose (Misc Panel) 116H 07/30/18 11:33: Bedside Glucose (Misc Panel) 143H Microbiology Microbiology 07/23/18 Urine Culture - Final, Complete Jolynn Cobos Jul 30, 2018 12:21
[2018-07-30 14:00] VITALS: BP 133/71
--- NOTE | 2018-07-30 14:47 | NUR ---
Recommending upgrade to level 3 mechanical soft (NDD) solids please Addendum: 07/30/[address] [facility] Amended: Links added.
--- NOTE | 2018-07-30 16:59 | IPNPDOC ---
PM&R Progress Note DATE OF SERVICE: Jul 30, 2018 [employer] Progress Note Subjective: Patient seen in his room with his and asking to go home Monday. He agreed to stay until his is trained. REVIEW OF SYSTEMS: The following is a completed review of systems and has been reviewed. Review of systems otherwise unremarkable. PAIN: Patient self reports no pain. EYES: Negative fo recent vision loss EARS, NOSE, & THROAT: +dysphagia CARDIOVASCULAR:denies chest pain or palpitations PULMONARY: Negative. Denies shortness of breath GASTROINTESTINAL: Negative for diarrhea or constipation GENITOURINARY: Negative for dysuria or hematuria NEUROLOGICAL: +stroke with dysphagia, dysarthria, and right sided paresis HEMATOLOGICAL: Negative SKIN: intact PSYCHIATRIC: Unremarkable. All other review of systems found to be negative. PHYSICAL EXAMINATION: VITAL SIGNS: Please see below. GENERAL: Pleasant and cooperative. No acute distress. HEENT: PERRL. Extraocular movements intact. Clear conjunctiva, glasses, visual collins intact CARDIOVASCULAR: Regular rate and rhythm. No murmurs, rubs, or gallops. LUNGS: Clear to auscultation bilaterally. No wheezes. No rhonchi. ABDOMEN: Soft, nontender, nondistended. Positive bowel sounds. Normal active bowel sounds NEUROLOGICAL: Alert and oriented times three. 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 2/5 right hip flexors, 3/5 knee extensor, 3+/5 ankle DF and EHL. 5/5 strength in left lower extremity. Decreased sensation to light touch RUE and RLE SKIN: intact ASSESSMENT:73-year-old M with past medical history of HTN, CAD who presents status post left pontine stroke. PLAN: 1. Rehab: PT, OT [employer] and assess for DME needs, ambulating with platform RW with assistance, diet upgraded to mechanical soft-level 3 diet and thins, getting more return in RUE- will trial constraint induced movement therapy and e-stim, right wrist extension improving, 2. Neuro: s/p left pontine infarct with RUE and RLE paresis with dysphagia thought to be [id number] thromboembolic due to severe intracerebral stenosis, continue ASA-Plavix, statin, and BP meds, goal BP will be 130-140s given risk of hypoperfusion, medicine consulted-stable -Prozac for mood and motor recovery 3. Cardio: pmh HTn and CAD s/p 4 vessels, continue antiplatelet therapy and Amlodipine and Losartan, monitor and adjust as needed 4. Resp: encourage incentive spirometry, monitor for aspiration and infection- stable 5. Endo: pmh DM continue insulin 6. DVT ppx: Lovenox and TEDs 7. : admission UA and Ucx negative, voiding well 8. GI ppx; protonix 9. Dispo: 08/06/18 to home, progressing towards goals, will begin family training tomorrow as patient insistent upon returning home sooner Allergies Coded Allergies: No Known Allergies (Unverified , 07/20/18) Vital Signs Vital Signs Date Time Temp Pulse Resp B/P (MAP) Pulse Ox O2 Delivery O2 Flow Rate FiO2 07/30/18 10:19 141/77 07/30/18 09:32 61 07/30/18 06:00 98.6 18 95 Laboratory Data Labs 24H Laboratory Tests 2 07/29/18 17:00: Bedside Glucose (Misc Panel) 89 07/29/18 20:18: Bedside Glucose (Misc Panel) 136H 07/30/18 06:27: Bedside Glucose (Misc Panel) 116H 07/30/18 11:33: Bedside Glucose (Misc Panel) 143H Microbiology Microbiology 07/23/18 Urine Culture - Final, Complete Current Medications Current Medications Current Medications Acetaminophen (Tylenol Tab) 650 mg Q4HP PRN PO fever/MILD PAIN (PS 1-4); Start 07/20/18 at 16:30 Amlodipine Besylate (Norvasc) 10 mg DAILY PO Last administered on 07/30/18at 09:32; Start 07/21/18 at 09:00 Aspirin (Aspirin Chewable) 81 mg DAILY PO Last administered on 07/30/18at 09:25; Start 07/21/18 at 09:00 Atorvastatin Calcium (Lipitor) 80 mg DAILY PO Last administered on 07/30/18at 09:26; Start 07/21/18 at 09:00 Bisacodyl (Dulcolax Suppository) 10 mg DAILYPRN PRN [place] CONSTIPATION; Start 07/20/18 at 16:30 Clopidogrel Bisulfate (PLAVix) 75 mg DAILY PO Last administered on 07/30/18at 09:26; Start 07/21/18 at 09:00 Dextrose (Dextrose 50%) 25 ml ASDIRECTED PRN IV SEE LABEL COMMENTS; Start 07/20/18 at 16:30 Docusate Sodium (Colace) 100 mg BID PO Last administered on 07/30/18at 09:25; Start 07/20/18 at 21:00 Enoxaparin Sodium (Lovenox) 40 mg DAILY SC Last administered on 07/30/18at 09:25; Start 07/21/18 at 09:00 Fluoxetine HCl (PROzac) 20 mg DAILY PO Last administered on 07/30/18at 09:25; Start 07/21/18 at 09:00 Glucagon (Glucagon) 1 mg ASDIRECTED PRN SC SEE LABEL COMMENTS; Start 07/20/18 at 16:30 Glucose (Glucose) 16 GM ASDIRECTED PRN PO SEE LABEL COMMENTS; Start 07/20/18 at 16:30 Home Med (Med Rec Complete!) ASDIRECTED XX ; Start 07/20/18 at 17:30; Stop 07/20/18 at 17:30; Status DC Insulin Detemir (Levemir Insulin) 5 units QHS SC Last administered on 07/29/18at 21:50; Start 07/20/18 at 21:00 Insulin Human Lispro (HumaLOG INSULIN) SEE PROTOCOL TABLE AC SC Last administered on 07/30/18at 12:41; Start 07/20/18 at 17:30 Losartan Potassium (Cozaar) 25 mg DAILY PO ; Start 07/21/18 at 09:00; Stop 07/21/18 at 09:00; Status DC Losartan Potassium (Cozaar) 25 mg DAILY@1000 PO Last administered on 07/30/18at 10:19; Start 07/21/18 at 10:00 Magnesium Hydroxide (Milk Of Magnesia) 30 ml DAILYPRN PRN PO CONSTIPATION; Start 07/20/18 at 16:30 Ondansetron HCl (Zofran) 4 mg Q6HP PRN PO NAUSEA; Start 07/20/18 at 16:30 Pantoprazole Sodium (Protonix) 40 mg DAILY PO Last administered on 07/30/18at 09:25; Start 07/21/18 at 09:00 Senna (Senokot) 1 tab QHS PO Last administered on 07/29/18at 21:49; Start 07/20/18 at 21:00 RENNY GUZMAN MD Jul 30, 2018 16:59
[2018-07-30 20:00] VITALS: BP 116/63
[2018-07-30 20:10] VITALS: BP 116/63
[2018-07-30] MEDS: LEVEMIR (INSULIN DETEMIR) 1 UNITS/0.01ML SC SCH (21:04)
[2018-07-30] MEDS: SENNA 8.6 MG TAB (SENOKOT) PO SCH (21:04)
[2018-07-31 06:00] VITALS: BP 136/80
[2018-07-31 07:30] LABS: HEMOGLOBIN 15.8 g/dl (13.5-17.5); MEAN CORPUSCULAR HEMOGLOBIN 29.8 pg (27.0-33.0); MEAN CORPUSCULAR HGB CONC 33.6 g/dl (32.0-36.5); MEAN CORPUSCULAR VOLUME 88.5 fl (80.0-96.0); PLATELET COUNT, AUTOMATED 185 10^3/uL (150-450); RED BLOOD COUNT 5.31 10^6/uL (4.30-6.10)
[2018-07-31 07:50] LABS: CALCIUM LEVEL 8.8 MG/DL (8.8-10.2); CREATININE FOR GFR 1.45 MG/DL (0.70-1.30); GLOMERULAR FILTRATION RATE 50.5 (>42); POTASSIUM SERUM 4.1 MEQ/L (3.5-5.1)
[2018-07-31] MEDS: ENOXAPARIN 40 MG/0.4 ML SYRINGE (J1650) SC SCH (08:15)
[2018-07-31] MEDS: HumaLOG INSULIN (NovoLOG) PER UNIT SC SCH ×3 (08:16→17:30)
[2018-07-31] MEDS: PANTOPRAZOLE 40MG TAB (PROTONIX) PO SCH (08:16)
[2018-07-31] MEDS: CLOPIDOGREL 75 MG TAB PO SCH (08:16)
[2018-07-31] MEDS: ASPIRIN 81 MG CHEW TABLET PO SCH (08:16)
[2018-07-31] MEDS: ATORVASTATIN 20 MG TAB PO SCH (08:16)
[2018-07-31] MEDS: FLUoxetine 20 MG CAP PO SCH (08:16)
[2018-07-31] MEDS: DOCUSATE SODIUM 100 MG CAP PO SCH ×2 (08:17→21:15)
[2018-07-31] MEDS: amLODIPine 10 MG TAB PO SCH (08:17)
[2018-07-31] MEDS: LOSARTAN 25 MG TAB PO SCH (11:00)
[2018-07-31 14:00] VITALS: BP 134/79
--- NOTE | 2018-07-31 14:12 | IPNPDOC ---
Date Seen The patient was seen on 07/31/18. Progress Note HPI:The patient is a 73-year-old right-handed male, who initially presented to [facility] on 07/16/18. At the time, he presented with right-sided facial droop, as well as right hemiparesis. He had undergo an extensive evaluation at their facility including echocardiogram with negative bubble study. Preserved ejection fraction. At the end of their work up, he was noted to have severe distal M3 stenosis, as well as right vertebral stenosis at C5, which they feel to be the etiology of his right pontine cerebrovascular accident (CVA). He was been transferred to the care of ARU, Dr Ross, 07/20/18. The patient is OOB to w/c, no verbalized complaints. He denies chest pain, shortness of breath, abdominal pain, nausea, vomiting, diarrhea, or urinary complaints. PAST MEDICAL HISTORY: 1. Hypertension. 2. Diabetes. 3. Coronary artery disease, status post coronary artery bypass graft (CABG), four vessels 4. CKD3 PE: GEN: 73yoF, appears stated age. Alert and oriented x 3. Pleasant, interactive. HEENT: Normocephalic, atraumatic. Sclera are nonicteric. Conjunctiva without injection. Moist mucous membranes. Rt facial droop noted. CHEST: Regular rate and rhythm, +S1, +S2 LUNGS: Clear to auscultation bilaterally. No wheezes, rales, or rhonchi. ABD: Round, soft, non-tender, non-distended. +Bowel sounds throughout. EXT: No lower extremity edema appreciated. SKIN: [place], dry, warm. No rashes. NEURO: Alert and oriented x 3. Dysarthria noted. Rt hemiparesis. A&P: The patient is a 73-year-old right-handed male, who initially presented to [facility] on 07/16/18. At the time, he presented with right-sided facial droop, as well as right hemiparesis. He had undergo an extensive evaluation at their facility including echocardiogram with negative bubble study. Preserved ejection fraction. At the end of their work up, he was noted to have severe distal M3 stenosis, as well as right vertebral stenosis at C5, which they feel to be the etiology of his right pontine cerebrovascular accident (CVA). He was been transferred to the care of ARU, Dr Ross, 07/20/18. 1. Right pontine cerebrovascular accident (CVA). Mgmt as per ARU. Outpt F/U with Neurology. PT/OT/ST as per ARU. Pain control/Bowel care as per ARU. DVT prophylaxis. Pt on Lovenox. Disposition as per ARU. Continue Aspirin 81mg, Plavix 75mg, Lipitor 80mg. 2. Type 2 diabetes. CC diet. SSI Levemir. BS [id number]. 3. Hypertension. Cozaar 25 mg daily. Norvasc 10 mg daily. Blood pressure appears controlled Monitor. 4. Coronary artery disease. Continue aspirin and statin. He is not on a beta duncan. HR trend noted to be 53-79 bpm. 5. CKD. SCr 1.45. Appears to be at baseline 1.5-1.6. VS, I&O, 24H, Fishbone Vital Signs/I&O Vital Signs Date Time Temp Pulse Resp B/P (MAP) Pulse Ox O2 Delivery O2 Flow Rate FiO2 07/31/18 08:17 79 136/80 07/31/18 06:00 99.1 18 95 I&O- Last 24 Hours up to 6 AM 07/31/18 06:00 Intake Total 280 ml Output Total 325 ml Balance -45 ml Laboratory Data 24H LABS Laboratory Tests 2 07/30/18 17:07: Bedside Glucose (Misc Panel) 83 07/30/18 20:33: Bedside Glucose (Misc Panel) 137H 07/31/18 06:53: Nucleated Red Blood Cells % (auto) 0.0, Anion Gap 7L, Glomerular Filtration Rate 50.5, Blood Urea Nitrogen 27H, Creatinine 1.45H, Sodium Level 141, Potassium Level 4.1, Chloride Level 107, Carbon Dioxide Level 27, Calcium Level 8.8 07/31/18 12:03: Bedside Glucose (Misc Panel) 123H CBC/BMP Laboratory Tests 07/31/18 06:53 Red Blood Count 5.31, Mean Corpuscular Volume 88.5, Mean Corpuscular Hemoglobin 29.8, Mean Corpuscular Hemoglobin Concent 33.6, Red Cell Distribution Width 13.4, Calcium Level 8.8 Microbiology Microbiology 07/23/18 Urine Culture - Final, Complete Jolynn Cobos Jul 31, 2018 14:12
[2018-07-31 20:00] VITALS: BP 146/72
[2018-07-31] MEDS: LEVEMIR (INSULIN DETEMIR) 1 UNITS/0.01ML SC SCH (21:15)
[2018-07-31] MEDS: SENNA 8.6 MG TAB (SENOKOT) PO SCH (21:15)
[2018-08-01 06:00] VITALS: BP 133/73
[2018-08-01] MEDS: DOCUSATE SODIUM 100 MG CAP PO SCH ×3 (08:14→21:06)
[2018-08-01] MEDS: CLOPIDOGREL 75 MG TAB PO SCH (08:14)
[2018-08-01] MEDS: HumaLOG INSULIN (NovoLOG) PER UNIT SC SCH (08:14)
[2018-08-01] MEDS: PANTOPRAZOLE 40MG TAB (PROTONIX) PO SCH (08:14)
[2018-08-01] MEDS: ASPIRIN 81 MG CHEW TABLET PO SCH (08:14)
[2018-08-01] MEDS: ENOXAPARIN 40 MG/0.4 ML SYRINGE (J1650) SC SCH (08:14)
[2018-08-01] MEDS: ATORVASTATIN 20 MG TAB PO SCH (08:14)
[2018-08-01] MEDS: FLUoxetine 20 MG CAP PO SCH (08:14)
[2018-08-01] MEDS: amLODIPine 10 MG TAB PO SCH (08:15)
[2018-08-01] MEDS: metFORMIN (GLUCOPHAGE) 1000 MG TABLET PO SCH (11:05)
[2018-08-01] MEDS: LOSARTAN 25 MG TAB PO SCH (11:05)
--- NOTE | 2018-08-01 12:05 | IPNPDOC ---
PM&R Progress Note DATE OF SERVICE: Jul 31, 2018 Melter Loader Progress Note Subjective: Patient seen in his room asking to go home, agreed to wait until family discussion. REVIEW OF SYSTEMS: The following is a completed review of systems and has been reviewed. Review of systems otherwise unremarkable. PAIN: Patient self reports no pain. EYES: Negative fo recent vision loss EARS, NOSE, & THROAT: +dysphagia CARDIOVASCULAR:denies chest pain or palpitations PULMONARY: Negative. Denies shortness of breath GASTROINTESTINAL: Negative for diarrhea or constipation GENITOURINARY: Negative for dysuria or hematuria NEUROLOGICAL: +stroke with dysphagia, dysarthria, and right sided paresis HEMATOLOGICAL: Negative SKIN: intact PSYCHIATRIC: Unremarkable. All other review of systems found to be negative. PHYSICAL EXAMINATION: VITAL SIGNS: Please see below. GENERAL: Pleasant and cooperative. No acute distress. HEENT: PERRL. Extraocular movements intact. Clear conjunctiva, glasses, visual collins intact CARDIOVASCULAR: Regular rate and rhythm. No murmurs, rubs, or gallops. LUNGS: Clear to auscultation bilaterally. No wheezes. No rhonchi. ABDOMEN: Soft, nontender, nondistended. Positive bowel sounds. Normal active bowel sounds NEUROLOGICAL: Alert and oriented times three. Cranial nerves II through XII grossly intact, right eyebrow sparing facial droop, +dysarthria, non-fluent aphasia, comprehension intact, no anomia, no dysmetria on the left EXTREMITIES: 3/5 right elbow flexors, 2/5 elbow extensors, 2/5 wrist extension, 2/5 sales mgr 5\5 strength left upper extremities. 2/5 right hip flexors, 3/5 knee extensor, 3+/5 ankle DF and EHL. 5/5 strength in left lower extremity. Decreased sensation to light touch RUE and RLE SKIN: intact ASSESSMENT:73-year-old M with past medical history of HTN, CAD who presents status post left pontine stroke. PLAN: 1. 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 Neuro: s/p left pontine infarct with RUE and RLE paresis with dysphagia thought to be [id number] thromboembolic due to severe intracerebral stenosis, continue ASA-Plavix, statin, and BP meds, goal BP will be 130-140s giv en risk of hypoperfusion, medicine consulted-stable -Prozac for mood and motor recovery 3. Cardio: pmh HTn and CAD s/p 4 vessels, continue antiplatelet therapy and Amlodipine and Losartan, monitor and adjust as needed 4. Resp: encourage incentive spirometry, monitor for aspiration and infection- stable 5. Endo: pmh DM continue insulin, will switch to metformin 6. DVT ppx: Lovenox and TEDs 7. : admission UA and Ucx negative, voiding well 8. GI ppx; protonix 9. Dispo: 08/08/18 to home, progressing towards goals, family training in progress Allergies Coded Allergies: No Known Allergies (Unverified , 07/20/18) Vital Signs Vital Signs Date Time Temp Pulse Resp B/P (MAP) Pulse Ox O2 Delivery O2 Flow Rate FiO2 08/01/18 11:05 133/63 08/01/18 08:15 63 08/01/18 06:00 97.4 18 96 Laboratory Data Labs 24H Laboratory Tests 2 07/31/18 17:12: Bedside Glucose (Misc Panel) 112H 07/31/18 20:22: Bedside Glucose (Misc Panel) 139H 08/01/18 05:56: Bedside Glucose (Misc Panel) 123H Microbiology Microbiology 07/23/18 Urine Culture - Final, Complete Current Medications Current Medications Current Medications Acetaminophen (Tylenol Tab) 650 mg Q4HP PRN PO fever/MILD PAIN (PS 1-4); Start 07/20/18 at 16:30 Amlodipine Besylate (Norvasc) 10 mg DAILY PO Last administered on 08/01/18at 08:15; Start 07/21/18 at 09:00 Aspirin (Aspirin Chewable) 81 mg DAILY PO Last administered on 08/01/18at 08:14; Start 07/21/18 at 09:00 Atorvastatin Calcium (Lipitor) 80 mg DAILY PO Last administered on 08/01/18at 08:14; Start 07/21/18 at 09:00 Bisacodyl (Dulcolax Suppository) 10 mg DAILYPRN PRN [place] CONSTIPATION; Start 07/20/18 at 16:30 Clopidogrel Bisulfate (PLAVix) 75 mg DAILY PO Last administered on 08/01/18at 08:14; Start 07/21/18 at 09:00 Dextrose (Dextrose 50%) 25 ml ASDIRECTED PRN IV SEE LABEL COMMENTS; Start 07/20/18 at 16:30 Docusate Sodium (Colace) 100 mg BID PO Last administered on 07/30/18at 21:04; Start 07/20/18 at 21:00 Enoxaparin Sodium (Lovenox) 40 mg DAILY SC Last administered on 08/01/18at 08:14; Start 07/21/18 at 09:00 Fluoxetine HCl (PROzac) 20 mg DAILY PO Last administered on 08/01/18at 08:14; Start 07/21/18 at 09:00 Glucagon (Glucagon) 1 mg ASDIRECTED PRN SC SEE LABEL COMMENTS; Start 07/20/18 at 16:30 Glucose (Glucose) 16 GM ASDIRECTED PRN PO SEE LABEL COMMENTS; Start 07/20/18 at 16:30 Home Med (Med Rec Complete!) ASDIRECTED XX ; Start 07/20/18 at 17:30; Stop 07/20/18 at 17:30; Status DC Insulin Detemir (Levemir Insulin) 5 units QHS SC Last administered on 07/31/18at 21:15; Start 07/20/18 at 21:00; Stop 08/01/18 at 08:55; Status DC Insulin Human Lispro (HumaLOG INSULIN) SEE PROTOCOL TABLE AC SC Last administered on 08/01/18at 08:14; Start 07/20/18 at 17:30; Stop 08/01/18 at 08:55; Status DC Losartan Potassium (Cozaar) 25 mg DAILY PO ; Start 07/21/18 at 09:00; Stop 07/21/18 at 09:00; Status DC Losartan Potassium (Cozaar) 25 mg DAILY@1000 PO Last administered on 08/01/18at 11:05; Start 07/21/18 at 10:00 Magnesium Hydroxide (Milk Of Magnesia) 30 ml DAILYPRN PRN PO CONSTIPATION; Start 07/20/18 at 16:30 Metformin HCl (Glucophage) 1,000 mg DAILY@0730 PO Last administered on 08/01/18at 11:05; Start 08/01/18 at 07:30 Ondansetron HCl (Zofran) 4 mg Q6HP PRN PO NAUSEA; Start 07/20/18 at 16:30 Pantoprazole Sodium (Protonix) 40 mg DAILY PO Last administered on 08/01/18 08:14; Start 07/21/18 at 09:00 Senna (Senokot) 1 tab QHS PO Last administered on 07/30/18at 21:04; Start 07/20/18 at 21:00 RENNY GUZMAN MD Aug 01, 2018 12:05
--- NOTE | 2018-08-01 12:07 | IPNPDOC ---
PM&R Progress Note DATE OF SERVICE: Aug 01, 2018 Electric Motorman Progress Note Subjective: Patient seen in his room with family who reported they do not feel comfortable taking him home and would like him to stay another week. REVIEW OF SYSTEMS: The following is a completed review of systems and has been reviewed. Review of systems otherwise unremarkable. PAIN: Patient self reports no pain. EYES: Negative fo recent vision loss EARS, NOSE, & THROAT: +dysphagia CARDIOVASCULAR:denies chest pain or palpitations PULMONARY: Negative. Denies shortness of breath GASTROINTESTINAL: Negative for diarrhea or constipation GENITOURINARY: Negative for dysuria or hematuria NEUROLOGICAL: +stroke with dysphagia, dysarthria, and right sided paresis HEMATOLOGICAL: Negative SKIN: intact PSYCHIATRIC: Unremarkable. All other review of systems found to be negative. PHYSICAL EXAMINATION: VITAL SIGNS: Please see below. GENERAL: Pleasant and cooperative. No acute distress. HEENT: PERRL. Extraocular movements intact. Clear conjunctiva, glasses, visual collins intact CARDIOVASCULAR: Regular rate and rhythm. No murmurs, rubs, or gallops. LUNGS: Clear to auscultation bilaterally. No wheezes. No rhonchi. ABDOMEN: Soft, nontender, nondistended. Positive bowel sounds. Normal active bowel sounds NEUROLOGICAL: Alert and oriented times three. Cranial nerves II through XII grossly intact, right eyebrow sparing facial droop, +dysarthria, non-fluent aphasia, comprehension intact, no anomia, no dysmetria on the left EXTREMITIES: 3/5 right elbow flexors, 2/5 elbow extensors, 2/5 wrist extension, 2/5 child welfare assistant 5\5 strength left upper extremities. 2/5 right hip flexors, 3/5 knee extensor, 3+/5 ankle DF and EHL. 5/5 strength in left lower extremity. Decreased sensation to light touch RUE and RLE SKIN: intact ASSESSMENT:73-year-old M with past medical history of HTN, CAD who presents status post left pontine stroke. PLAN: 1. Rehab: PT, OT FENCE INSTALLER and assess for DME needs, ambulating with platform RW with assistance, diet upgraded to mechanical soft-level 3 diet and thins, getting more return in RUE- will trial constraint induced movement therapy and e-stim, right wrist extension improving, resting splint to be started today 2. Neuro: s/p left pontine infarct with RUE and RLE paresis with dysphagia thought to be [id number] thromboembolic due to severe intracerebral stenosis, continue ASA-Plavix, statin, and BP meds, goal BP will be 130-140s given risk of hypoperfusion, medicine consulted-stable -Prozac for mood and motor recovery 3. Cardio: pmh HTn and CAD s/p 4 vessels, continue antiplatelet therapy and Amlo dipine and Losartan, monitor and adjust as needed 4. Resp: encourage incentive spirometry, monitor for aspiration and infection- stable 5. Endo: pmh DM continue insulin, switch to metformin 6. DVT ppx: Lovenox and TEDs 7. : admission UA and Ucx negative, voiding well 8. GI ppx; protonix 9. Dispo: 08/08/18 to home, progressing towards goals, family training in progress-discussion held today with family who does not feel comofrtable taking him home and would like to wait another week Allergies Coded Allergies: No Known Allergies (Unverified , 07/20/18) Vital Signs Vital Signs Date Time Temp Pulse Resp B/P (MAP) Pulse Ox O2 Delivery O2 Flow Rate FiO2 08/01/18 11:05 133/63 08/01/18 08:15 63 08/01/18 06:00 97.4 18 96 Laboratory Data Labs 24H Laboratory Tests 2 07/31/18 17:12: Bedside Glucose (Misc Panel) 112H 07/31/18 20:22: Bedside Glucose (Misc Panel) 139H 08/01/18 05:56: Bedside Glucose (Misc Panel) 123H Microbiology Microbiology 07/23/18 Urine Culture - Final, Complete Current Medications Current Medications Current Medications Acetaminophen (Tylenol Tab) 650 mg Q4HP PRN PO fever/MILD PAIN (PS 1-4); Start 07/20/18 at 16:30 Amlodipine Besylate (Norvasc) 10 mg DAILY PO Last administered on 08/01/18at 08:15; Start 07/21/18 at 09:00 Aspirin (Aspirin Chewable) 81 mg DAILY PO Last administered on 08/01/18at 08:14; Start 07/21/18 at 09:00 Atorvastatin Calcium (Lipitor) 80 mg DAILY PO Last administered on 08/01/18at 08:14; Start 07/21/18 at 09:00 Bisacodyl (Dulcolax Suppository) 10 mg DAILYPRN PRN [place] CONSTIPATION; Start 07/20/18 at 16:30 Clopidogrel Bisulfate (PLAVix) 75 mg DAILY PO Last administered on 08/01/18at 08:14; Start 07/21/18 at 09:00 Dextrose (Dextrose 50%) 25 ml ASDIRECTED PRN IV SEE LABEL COMMENTS; Start 07/20/18 at 16:30 Docusate Sodium (Colace) 100 mg BID PO Last administered on 07/30/18at 21:04; Start 07/20/18 at 21:00 Enoxaparin Sodium (Lovenox) 40 mg DAILY SC Last administered on 08/01/18at 08:14; Start 07/21/18 at 09:00 Fluoxetine HCl (PROzac) 20 mg DAILY PO Last administered on 08/01/18at 08:14; Start 07/21/18 at 09:00 Glucagon (Glucagon) 1 mg ASDIRECTED PRN SC SEE LABEL COMMENTS; Start 07/20/18 at 16:30 Glucose (Glucose) 16 GM ASDIRECTED PRN PO SEE LABEL COMMENTS; Start 07/20/18 at 16:30 Home Med (Med Rec Complete!) ASDIRECTED XX ; Start 07/20/18 at 17:30; Stop 07/20/18 at 17:30; Status DC Insulin Detemir (Levemir Insulin) 5 units QHS SC Last administered on 07/31/18at 21:15; Start 07/20/18 at 21:00; Stop 08/01/18 at 08:55; Status DC Insulin Human Lispro (HumaLOG INSULIN) SEE PROTOCOL TABLE AC SC Last administered on 08/01/18at 08:14; Start 07/20/18 at 17:30; Stop 08/01/18 at 08:55; Status DC Losartan Potassium (Cozaar) 25 mg DAILY PO ; Start 07/21/18 at 09:00; Stop 07/21/18 at 09:00; Status DC Losartan Potassium (Cozaar) 25 mg DAILY@1000 PO Last administered on 08/01/18at 11:05; Start 07/21/18 at 10:00 Magnesium Hydroxide (Milk Of Magnesia) 30 ml DAILYPRN PRN PO CONSTIPATION; Start 07/20/18 at 16:30 Metformin HCl (Glucophage) 1,000 mg DAILY@0730 PO Last administered on 08/01/18at 11:05; Start 08/01/18 at 07:30 Ondansetron HCl (Zofran) 4 mg Q6HP PRN PO NAUSEA; Start 07/20/18 at 16:30 Pantoprazole Sodium (Protonix) 40 mg DAILY PO Last administered on 08/01/18at 08:14; Start 07/21/18 at 09:00 Senna (Senokot) 1 tab QHS PO Last administered on 07/30/18at 21:04; Start 07/20/18 at 21:00 RENNY GUZMAN MD Aug 01, 2018 12:07
[2018-08-01 14:00] VITALS: BP 132/71
--- NOTE | 2018-08-01 14:03 | IPNPDOC ---
Date Seen The patient was seen on 08/01/18. Progress Note HPI:The patient is a 73-year-old right-handed male, who initially presented to [facility] on 07/16/18. At the time, he presented with right-sided facial droop, as well as right hemiparesis. He had undergo an extensive evaluation at their facility including echocardiogram with negative bubble study. Preserved ejection fraction. At the end of their work up, he was noted to have severe distal M3 stenosis, as well as right vertebral stenosis at C5, which they feel to be the etiology of his right pontine cerebrovascular accident (CVA). He was been transferred to the care of ARU, Dr Ross, 07/20/18. The patient is OOB to w/c, eating lunch. Dr Ross recommended to stay in ARU additional days and Pt is frustrated regarding this, he is anxious for d/c. Supportive family at bedside. He denies chest pain, shortness of breath, abdominal pain, nausea, vomiting, diarrhea, or urinary complaints. PAST MEDICAL HISTORY: 1. Hypertension. 2. Diabetes. 3. Coronary artery disease, status post coronary artery bypass graft (CABG), four vessels 4. CKD3 PE: GEN: 73yoF, appears stated age. Alert and oriented x 3. Pleasant, interactive. HEENT: Normocephalic, atraumatic. Sclera are nonicteric. Conjunctiva without injection. Moist mucous membranes. Rt facial droop noted. CHEST: Regular rate and rhythm, +S1, +S2 LUNGS: Clear to auscultation bilaterally. No wheezes, rales, or rhonchi. ABD: Round, soft, non-tender, non-distended. +Bowel sounds throughout. EXT: No lower extremity edema appreciated. SKIN: [place], dry, warm. No rashes. NEURO: Alert and oriented x 3. Dysarthria noted. Rt hemiparesis. A&P: The patient is a 73-year-old right-handed male, who initially presented to [facility] on 07/16/18. At the time, he presented with right-sided facial droop, as well as right hemiparesis. He had undergo an extensive evaluation at their facility including echocardiogram with negative bubble study. Preserved ejection fraction. At the end of their work up, he was noted to have severe distal M3 stenosis, as well as right vertebral stenosis at C5, which they feel to be the etiology of his right pontine cerebrovascular accident (CVA). He was been transferred to the care of ARU, Dr Ross, 07/20/18. 1. Right pontine cerebrovascular accident (CVA). Mgmt as per ARU. Outpt F/U with Neurology. PT/OT/ST as per ARU. Pain control/Bowel care as per ARU. DVT prophylaxis. Pt on Lovenox. Disposition as per ARU. Continue Aspirin 81mg, Plavix 75mg, Lipitor 80mg. 2. Type 2 diabetes. CC diet. SSI Levemir. BS 112-139. 3. Hypertension. Cozaar 25 mg daily. Norvasc 10 mg daily. Blood pressure appears controlled Monitor. 4. Coronary artery disease. Continue aspirin and statin. He is not on a beta duncan. HR trend noted to be 53-79 bpm. 5. CKD. SCr 1.45. Appears to be at baseline 1.5-1.6. Continue to monitor. VS, I&O, 24H, [place] Vital Signs/I&O Vital Signs Date Time Temp Pulse Resp B/P (MAP) Pulse Ox O2 Delivery O2 Flow Rate FiO2 08/01/18 11:05 133/63 08/01/18 08:15 63 08/01/18 06:00 97.4 18 96 I&O- Last 24 Hours up to 6 AM 08/01/18 06:00 Intake Total 1120 ml Output Total 975 ml Balance 145 ml Laboratory Data 24H LABS Laboratory Tests 2 07/31/18 17:12: Bedside Glucose (Misc Panel) 112H 07/31/18 20:22: Bedside Glucose (Misc Panel) 139H 08/01/18 05:56: Bedside Glucose (Misc Panel) 123H Microbiology Microbiology 07/23/18 Urine Culture - Final, Complete Jolynn Cobos Aug 01, 2018 14:03
--- NOTE | 2018-08-01 15:09 | NUR ---
Pt tolerating regular solids w/ no overt s/sx aspiration or penetration. Recommending please upgrade to regular diet consistency. Addendum: 08/01/18 at 1509 by TREVA CHENG [facility] SP Amended: Links added.
[2018-08-01 20:00] VITALS: BP 117/59
[2018-08-01] MEDS: SENNA 8.6 MG TAB (SENOKOT) PO SCH (21:06)
[2018-08-02 06:00] VITALS: BP 134/78
[2018-08-02] MEDS: metFORMIN (GLUCOPHAGE) 1000 MG TABLET PO SCH (07:41)
[2018-08-02 09:00] VITALS: BP 128/73
[2018-08-02] MEDS: DOCUSATE SODIUM 100 MG CAP PO SCH ×2 (09:00→19:53)
[2018-08-02] MEDS: CLOPIDOGREL 75 MG TAB PO SCH (09:20)
[2018-08-02] MEDS: ATORVASTATIN 20 MG TAB PO SCH (09:20)
[2018-08-02] MEDS: ASPIRIN 81 MG CHEW TABLET PO SCH (09:20)
[2018-08-02] MEDS: PANTOPRAZOLE 40MG TAB (PROTONIX) PO SCH (09:20)
[2018-08-02] MEDS: FLUoxetine 20 MG CAP PO SCH (09:20)
[2018-08-02] MEDS: amLODIPine 10 MG TAB PO SCH (09:21)
[2018-08-02] MEDS: ENOXAPARIN 40 MG/0.4 ML SYRINGE (J1650) SC SCH (09:22)
[2018-08-02] MEDS: LOSARTAN 25 MG TAB PO SCH (10:48)
[2018-08-02 14:00] VITALS: BP 120/64
[2018-08-02] MEDS: SENNA 8.6 MG TAB (SENOKOT) PO SCH (19:53)
[2018-08-02 20:00] VITALS: BP 142/73
[2018-08-03 06:00] VITALS: BP 114/61
[2018-08-03 07:20] LABS: BASO # 0.1 10^3/uL (0.0-0.2); EOS # 0.4 10^3/uL (0.0-0.50); EOS % 5.4 % (0.0-3.0); HEMATOCRIT 46.2 % (42.0-52.0); HEMOGLOBIN 15.3 g/dl (13.5-17.5); LYMPH % 12.9 % (24.0-44.0); MEAN CORPUSCULAR HEMOGLOBIN 29.1 pg (27.0-33.0); MEAN CORPUSCULAR HGB CONC 33.1 g/dl (32.0-36.5); MEAN CORPUSCULAR VOLUME 87.8 fl (80.0-96.0); MONO # 0.6 10^3/uL (0.0-0.8); MONO % 7.1 % (0.0-5.0); NEUTROPHILS # 5.9 10^3/uL (1.8-7.7); NEUTROPHILS % 73.3 % (36.0-66.0); PLATELET COUNT, AUTOMATED 200 10^3/uL (150-450); RED BLOOD COUNT 5.26 10^6/uL (4.30-6.10)
[2018-08-03 07:44] LABS: CALCIUM LEVEL 8.7 MG/DL (8.8-10.2); CREATININE FOR GFR 1.39 MG/DL (0.70-1.30)
[2018-08-03] MEDS: ATORVASTATIN 20 MG TAB PO SCH (08:38)
[2018-08-03] MEDS: ASPIRIN 81 MG CHEW TABLET PO SCH (08:38)
[2018-08-03] MEDS: CLOPIDOGREL 75 MG TAB PO SCH (08:38)
[2018-08-03] MEDS: ENOXAPARIN 40 MG/0.4 ML SYRINGE (J1650) SC SCH (08:38)
[2018-08-03] MEDS: PANTOPRAZOLE 40MG TAB (PROTONIX) PO SCH (08:38)
[2018-08-03] MEDS: FLUoxetine 20 MG CAP PO SCH (08:38)
[2018-08-03] MEDS: metFORMIN (GLUCOPHAGE) 1000 MG TABLET PO SCH (08:38)
[2018-08-03] MEDS: amLODIPine 10 MG TAB PO SCH (08:39)
[2018-08-03] MEDS: DOCUSATE SODIUM 100 MG CAP PO SCH ×2 (08:39→20:41)
[2018-08-03] MEDS: LOSARTAN 25 MG TAB PO SCH (11:13)
[2018-08-03 14:00] VITALS: BP 142/73
[2018-08-03 20:00] VITALS: BP 139/82
[2018-08-03] MEDS: SENNA 8.6 MG TAB (SENOKOT) PO SCH (20:41)
[2018-08-04 06:00] VITALS: BP 142/71
[2018-08-04] MEDS: amLODIPine 10 MG TAB PO SCH (08:32)
[2018-08-04] MEDS: ASPIRIN 81 MG CHEW TABLET PO SCH (08:32)
[2018-08-04] MEDS: metFORMIN (GLUCOPHAGE) 1000 MG TABLET PO SCH (08:32)
[2018-08-04] MEDS: ENOXAPARIN 40 MG/0.4 ML SYRINGE (J1650) SC SCH (08:32)
[2018-08-04] MEDS: PANTOPRAZOLE 40MG TAB (PROTONIX) PO SCH (08:32)
[2018-08-04] MEDS: CLOPIDOGREL 75 MG TAB PO SCH (08:32)
[2018-08-04] MEDS: ATORVASTATIN 20 MG TAB PO SCH (08:32)
[2018-08-04] MEDS: DOCUSATE SODIUM 100 MG CAP PO SCH ×2 (08:32→20:31)
[2018-08-04] MEDS: FLUoxetine 20 MG CAP PO SCH (08:32)
[2018-08-04] MEDS: LOSARTAN 25 MG TAB PO SCH (10:17)
[2018-08-04 14:00] VITALS: BP 136/80
[2018-08-04 20:00] VITALS: BP 117/61
[2018-08-04] MEDS: SENNA 8.6 MG TAB (SENOKOT) PO SCH (20:31)
--- NOTE | 2018-08-04 20:35 | IPNPDOC ---
PM&R Progress Note DATE OF SERVICE: Aug 02, 2018 Student Worker Progress Note Subjective: Patient seen in his room instructed to work on right ankle active dorsiflexion exercises while outside of therapy. He reports he is feeling stronger. REVIEW OF SYSTEMS: The following is a completed review of systems and has been reviewed. Review of systems otherwise unremarkable. PAIN: Patient self reports no pain. EYES: Negative fo recent vision loss EARS, NOSE, & THROAT: +dysphagia(improving) CARDIOVASCULAR:denies chest pain or palpitations PULMONARY: Negative. Denies shortness of breath GASTROINTESTINAL: Negative for diarrhea or constipation GENITOURINARY: Negative for dysuria or hematuria NEUROLOGICAL: +stroke with dysarthria, and right sided paresis HEMATOLOGICAL: Negative SKIN: intact PSYCHIATRIC: Unremarkable. All other review of systems found to be negative. PHYSICAL EXAMINATION: VITAL SIGNS: Please see below. GENERAL: Pleasant and cooperative. No acute distress. HEENT: PERRL. Extraocular movements intact. Clear conjunctiva, glasses, visual collins intact CARDIOVASCULAR: Regular rate and rhythm. No murmurs, rubs, or gallops. LUNGS: Clear to auscultation bilaterally. No wheezes. No rhonchi. ABDOMEN: Soft, nontender, nondistended. Positive bowel sounds. Normal active bowel sounds NEUROLOGICAL: Alert and oriented times three. Cranial nerves II through XII grossly intact, right eyebrow sparing facial droop, +dysarthria, non-fluent aphasia, comprehension intact, no anomia, no dysmetria on the left EXTREMITIES: 3/5 right elbow flexors, 2/5 elbow extensors, 2/5 wrist extension, 2/5 evp global product leadership 5\5 strength left upper extremities. 2/5 right hip flexors, 3/5 knee extensor, 3+/5 ankle DF and EHL. 5/5 strength in left lower extremity. Decreased sensation to light touch RUE and RLE SKIN: intact ASSESSMENT:73-year-old M with past medical history of HTN, CAD who presents status post left pontine stroke. PLAN: 1. Rehab: PT, OT SIGNAL FITTER and assess for DME needs, ambulating with platform RW with assistance, diet upgraded to regular diet and thins, getting more return in RUE- will trial constraint induced movement therapy and e-stim, right wrist extension improving, continue resting splint -will trial e-stim to ankle dorsiflexors as well 2. Neuro: s/p left pontine infarct with RUE and RLE paresis with dysphagia thought to be [id number] thromboembolic due to severe intracerebral stenosis, continue ASA-Plavix, statin, and BP meds, goal BP will be 130-140s given risk of hypoperfusion, medicine consulted-stable -Prozac for mood and motor recovery 3. Cardio: pmh HTN and CAD s/p 4 vessels, continue antiplatelet therapy and Amlodipine and Losartan, monitor and adjust as needed 4. Resp: encourage incentive spirometry, monitor for aspiration and infection- stable 5. Endo: pmh DM continue insulin, continue metformin 6. DVT ppx: Lovenox and TEDs 7. : admission UA and Ucx negative, voiding well 8. GI ppx; protonix 9. Dispo: 08/08/18 to home, progressing towards goals, family training in progress Allergies Coded Allergies: No Known Allergies (Unverified , 07/20/18) Vital Signs Vital Signs Date Time Temp Pulse Resp B/P (MAP) Pulse Ox O2 Delivery O2 Flow Rate FiO2 08/04/18 14:00 98.4 63 20 136/80 (98) 94 Laboratory Data Labs 24H Laboratory Tests 2 08/04/18 06:47: Bedside Glucose (Misc Panel) 119H Microbiology Microbiology 08/03/18 Urine Culture, Received Pending Current Medications Current Medications Current Medications Acetaminophen (Tylenol Tab) 650 mg Q4HP PRN PO fever/MILD PAIN (PS 1-4); Start 07/20/18 at 16:30 Amlodipine Besylate (Norvasc) 10 mg DAILY PO Last administered on 08/04/18at 08:32; Start 07/21/18 at 09:00 Aspirin (Aspirin Chewable) 81 mg DAILY PO Last administered on 08/04/18at 08:32; Start 07/21/18 at 09:00 Atorvastatin Calcium (Lipitor) 80 mg DAILY PO Last administered on 08/04/18at 08:32; Start 07/21/18 at 09:00 Bisacodyl (Dulcolax Suppository) 10 mg DAILYPRN PRN [place] CONSTIPATION; Start 07/20/18 at 16:30 Clopidogrel Bisulfate (PLAVix) 75 mg DAILY PO Last administered on 08/04/18at 08:32; Start 07/21/18 at 09:00 Dextrose (Dextrose 50%) 25 ml ASDIRECTED PRN IV SEE LABEL COMMENTS; Start 07/20/18 at 16:30 Docusate Sodium (Colace) 100 mg BID PO Last administered on 08/04/18at 08:32; Start 07/20/18 at 21:00 Enoxaparin Sodium (Lovenox) 40 mg DAILY SC Last administered on 08/04/18at 08:32; Start 07/21/18 at 09:00 Fluoxetine HCl (PROzac) 20 mg DAILY PO Last administered on 08/04/18at 08:32; Start 07/21/18 at 09:00 Glucagon (Glucagon) 1 mg ASDIRECTED PRN SC SEE LABEL COMMENTS; Start 07/20/18 at 16:30 Glucose (Glucose) 16 GM ASDIRECTED PRN PO SEE LABEL COMMENTS; Start 07/20/18 at 16:30 Home Med (Med Rec Complete!) ASDIRECTED XX ; Start 07/20/18 at 17:30; Stop 07/20/18 at 17:30; Status DC Insulin Detemir (Levemir Insulin) 5 units QHS SC Last administered on 07/31/18at 21:15; Start 07/20/18 at 21:00; Stop 08/01/18 at 08:55; Status DC Insulin Human Lispro (HumaLOG INSULIN) SEE PROTOCOL TABLE AC SC Last administered on 08/01/18at 08:14; Start 07/20/18 at 17:30; Stop 08/01/18 at 08:55; Status DC Losartan Potassium (Cozaar) 25 mg DAILY PO ; Start 07/21/18 at 09:00; Stop 07/21/18 at 09:00; Status DC Losartan Potassium (Cozaar) 25 mg DAILY@1000 PO Last administered on 08/04/18at 10:17; Start 07/21/18 at 10:00 Magnesium Hydroxide (Milk Of Magnesia) 30 ml DAILYPRN PRN PO CONSTIPATION; Start 07/20/18 at 16:30 Metformin HCl (Glucophage) 1,000 mg DAILY@0730 PO Last administered on 08/04/18at 08:32; Start 08/01/18 at 07:30 Ondansetron HCl (Zofran) 4 mg Q6HP PRN PO NAUSEA; Start 07/20/18 at 16:30 Pantoprazole Sodium (Protonix) 40 mg DAILY PO Last administered on 08/04/18at 08:32; Start 07/21/18 at 09:00 Senna (Senokot) 1 tab QHS PO Last administered on 08/03/18at 20:41; Start 07/20/18 at 21:00 RENNY GUZMAN MD Aug 04, 2018 20:35
[2018-08-05 06:03] VITALS: BP 125/77
[2018-08-05] MEDS: ENOXAPARIN 40 MG/0.4 ML SYRINGE (J1650) SC SCH (08:29)
[2018-08-05] MEDS: metFORMIN (GLUCOPHAGE) 1000 MG TABLET PO SCH (08:29)
[2018-08-05] MEDS: CLOPIDOGREL 75 MG TAB PO SCH (08:30)
[2018-08-05] MEDS: ASPIRIN 81 MG CHEW TABLET PO SCH (08:30)
[2018-08-05] MEDS: FLUoxetine 20 MG CAP PO SCH (08:30)
[2018-08-05] MEDS: PANTOPRAZOLE 40MG TAB (PROTONIX) PO SCH (08:30)
[2018-08-05] MEDS: ATORVASTATIN 20 MG TAB PO SCH (08:30)
[2018-08-05] MEDS: amLODIPine 10 MG TAB PO SCH (08:31)
[2018-08-05] MEDS: DOCUSATE SODIUM 100 MG CAP PO SCH ×2 (08:31→20:53)
[2018-08-05] MEDS: LOSARTAN 25 MG TAB PO SCH (10:43)
[2018-08-05 14:00] VITALS: BP 120/67
[2018-08-05 20:00] VITALS: BP 120/61
[2018-08-05] MEDS: SENNA 8.6 MG TAB (SENOKOT) PO SCH (20:53)
[2018-08-06 06:00] VITALS: BP 111/60
[2018-08-06] MEDS: ASPIRIN 81 MG CHEW TABLET PO SCH (08:49)
[2018-08-06] MEDS: ATORVASTATIN 20 MG TAB PO SCH (08:49)
[2018-08-06] MEDS: metFORMIN (GLUCOPHAGE) 1000 MG TABLET PO SCH (08:49)
[2018-08-06] MEDS: FLUoxetine 20 MG CAP PO SCH (08:49)
[2018-08-06] MEDS: DOCUSATE SODIUM 100 MG CAP PO SCH ×2 (08:50→21:00)
[2018-08-06] MEDS: CLOPIDOGREL 75 MG TAB PO SCH (08:50)
[2018-08-06] MEDS: ENOXAPARIN 40 MG/0.4 ML SYRINGE (J1650) SC SCH (08:50)
[2018-08-06] MEDS: PANTOPRAZOLE 40MG TAB (PROTONIX) PO SCH (08:50)
[2018-08-06] MEDS: amLODIPine 10 MG TAB PO SCH (08:55)
[2018-08-06] MEDS: LOSARTAN 25 MG TAB PO SCH (09:02)
[2018-08-06] MEDS: LACTOBACILLUS ACIDOPHILUS CAP (BACID) PO SCH ×2 (12:47→22:07)
[2018-08-06] MEDS: NITROFURANTOIN (MACROBID) 100 MG CAP PO SCH ×2 (12:47→22:03)
[2018-08-06 12:50] LABS: BASO # 0.1 10^3/uL (0.0-0.2); EOS # 0.3 10^3/uL (0.0-0.50); EOS % 4.2 % (0.0-3.0); HEMATOCRIT 51.9 % (42.0-52.0); HEMOGLOBIN 17.1 g/dl (13.5-17.5); LYMPH # 0.9 10^3/uL (1.5-4.5); LYMPH % 12.3 % (24.0-44.0); MEAN CORPUSCULAR HEMOGLOBIN 29.5 pg (27.0-33.0); MEAN CORPUSCULAR HGB CONC 32.9 g/dl (32.0-36.5); MEAN CORPUSCULAR VOLUME 89.5 fl (80.0-96.0); MONO # 0.6 10^3/uL (0.0-0.8); MONO % 8.2 % (0.0-5.0); NEUTROPHILS # 5.4 10^3/uL (1.8-7.7); PLATELET COUNT, AUTOMATED 241 10^3/uL (150-450); WHITE BLOOD COUNT 7.3 10^3/uL (4.0-10.0)
[2018-08-06 13:10] LABS: CALCIUM LEVEL 9.6 MG/DL (8.8-10.2); CREATININE FOR GFR 1.57 MG/DL (0.70-1.30); GLOMERULAR FILTRATION RATE 46.1 (>42); POTASSIUM SERUM 4.4 MEQ/L (3.5-5.1)
[2018-08-06 13:57] VITALS: BP 124/67
--- NOTE | 2018-08-06 15:34 | IPNPDOC ---
Date Seen The patient was seen on 08/06/18. Progress Note HPI:The patient is a 73-year-old right-handed male, who initially presented to [facility] on 07/16/18. At the time, he presented with right-sided facial droop, as well as right hemiparesis. He had undergo an extensive evaluation at their facility including echocardiogram with negative bubble study. Preserved ejection fraction. At the end of their work up, he was noted to have severe distal M3 stenosis, as well as right vertebral stenosis at C5, which they feel to be the etiology of his right pontine cerebrovascular accident (CVA). He was been transferred to the care of ARU, Dr Ross, 07/20/18. The patient is OOB with OT. Pt is very anxious for d/c. No voiced concerns. He denies chest pain, shortness of breath, abdominal pain, nausea, vomiting, diarrhea, or urinary complaints. PAST MEDICAL HISTORY: 1. Hypertension. 2. Diabetes. 3. Coronary artery disease, status post coronary artery bypass graft (CABG), four vessels 4. CKD3 PE: GEN: 73yoF, appears stated age. Alert and oriented x 3. Pleasant, interactive. HEENT: Normocephalic, atraumatic. Sclera are nonicteric. Conjunctiva without injection. Moist mucous membranes. Rt facial droop noted. CHEST: Regular rate and rhythm, +S1, +S2 LUNGS: Clear to auscultation bilaterally. No wheezes, rales, or rhonchi. ABD: Round, soft, non-tender, non-distended. +Bowel sounds throughout. EXT: No lower extremity edema appreciated. SKIN: Pec[place]iar, dry, warm. No rashes. NEURO: Alert and oriented x 3. Dysarthria noted. Rt hemiparesis. A&P: The patient is a 73-year-old right-handed male, who initially presented to [facility] on 07/16/18. At the time, he presented with right-sided facial droop, as well as right hemiparesis. He had undergo an extensive evaluation at their facility including echocardiogram with negative bubble study. Preserved ejection fraction. At the end of their work up, he was noted to have severe distal M3 stenosis, as well as right vertebral stenosis at C5, which they feel to be the etiology of his right pontine cerebrovascular accident (CVA). He was been transferred to the care of ARU, Dr Ross, 07/20/18. 1. Right pontine cerebrovascular accident (CVA). Mgmt as per ARU. Outpt F/U with Neurology. PT/OT/ST as per ARU. Pain control/Bowel care as per ARU. DVT prophylaxis. Pt on Lovenox. Disposition as per ARU. Continue Aspirin 81mg, Plavix 75mg, Lipitor 80mg. 2. Type 2 diabetes. CC diet. SSI Levemir. 3. Hypertension. Cozaar 25 mg daily. Norvasc 10 mg daily. Blood pressure reasonably controlled Monitor. 4. Coronary artery disease. Continue aspirin and statin. He is not on a beta duncan. HR trend noted to be 56-66 bpm. 5. CKD. SCr 1.57. Appears to be at baseline 1.5-1.6. Continue to monitor. 6. UTI. E coli. Pt started on Macrobid as per Dr Ross. Bacid BID. Recheck BMP in AM. VS, I&O, 24H, Fishbone Vital Signs/I&O Vital Signs Date Time Temp Pulse Resp B/P (MAP) Pulse Ox O2 Delivery O2 Flow Rate FiO2 08/06/18 13:57 96.9 60 18 124/67 (86) 93 I&O- Last 24 Hours up to 6 AM 08/06/18 06:00 Intake Total 1360 ml Output Total 1150 ml Balance 210 ml Laboratory Data 24H LABS Laboratory Tests 2 08/05/18 16:43: Bedside Glucose (Misc Panel) 78L 08/06/18 05:38: Bedside Glucose (Misc Panel) 110 08/06/18 12:36: Immature Granulocyte % (Auto) 0.3, White Blood Count 7.3, Red Blood Count 5.80, Hemoglobin 17.1, Hematocrit 51.9, Mean Corpuscular Volume 89.5, Mean Corpuscular Hemoglobin 29.5, Mean Corpuscular Hemoglobin Concent 32.9, Red Cell Distribution Width 13.2, Platelet Count 241, Neutrophils (%) (Auto) 74.0H, Lymphocytes (%) (Auto) 12.3L, Monocytes (%) (Auto) 8.2H, Eosinophils (%) (Auto) 4.2H, Basophils (%) (Auto) 1.0, Neutrophils # (Auto) 5.4, Lymphocytes # (Auto) 0.9L, Monocytes # (Auto) 0.6, Eosinophils # (Auto) 0.3, Basophils # (Auto) 0.1, Nucleated Red Blood Cells % (auto) 0.0, Anion Gap 8, Glomerular Filtration Rate 46.1, Blood Urea Nitrogen 27H, Creatinine 1.57H, Sodium Level 142, Potassium Level 4.4, Chloride Level 106, Carbon Dioxide Level 28, Calcium Level 9.6 CBC/BMP Laboratory Tests 08/06/18 12:36 Red Blood Count 5.80, Mean Corpuscular Volume 89.5, Mean Corpuscular Hemoglobin 29.5, Mean Corpuscular Hemoglobin Concent 32.9, Red Cell Distribution Width 13.2, Neutrophils (%) (Auto) 74.0 H, Lymphocytes (%) (Auto) 12.3 L, Monocytes (%) (Auto) 8.2 H, Eosinophils (%) (Auto) 4.2 H, Basophils (%) (Auto) 1.0, Neutrophils # (Auto) 5.4, Lymphocytes # (Auto) 0.9 L, Monocytes # (Auto) 0.6, Eosinophils # (Auto) 0.3, Basophils # (Auto) 0.1, Calcium Level 9.6 Microbiology Microbiology 08/03/18 Urine Culture - Final, Complete Escherichia Coli Jolynn Cobos Aug 06, 2018 15:34
[2018-08-06 20:00] VITALS: BP 139/71
[2018-08-06] MEDS: SENNA 8.6 MG TAB (SENOKOT) PO SCH (21:00)
[2018-08-07 06:00] VITALS: BP 139/76
[2018-08-07 07:02] LABS: CALCIUM LEVEL 8.9 MG/DL (8.8-10.2); CREATININE FOR GFR 1.35 MG/DL (0.70-1.30); GLOMERULAR FILTRATION RATE 54.8 (>42); POTASSIUM SERUM 3.8 MEQ/L (3.5-5.1)
[2018-08-07] MEDS: metFORMIN (GLUCOPHAGE) 1000 MG TABLET PO SCH (08:10)
[2018-08-07] MEDS: CLOPIDOGREL 75 MG TAB PO SCH (08:10)
[2018-08-07] MEDS: DOCUSATE SODIUM 100 MG CAP PO SCH ×3 (08:10→21:00)
[2018-08-07] MEDS: FLUoxetine 20 MG CAP PO SCH (08:10)
[2018-08-07] MEDS: amLODIPine 10 MG TAB PO SCH (08:11)
[2018-08-07] MEDS: ASPIRIN 81 MG CHEW TABLET PO SCH (08:11)
[2018-08-07] MEDS: ATORVASTATIN 20 MG TAB PO SCH (08:11)
[2018-08-07] MEDS: LACTOBACILLUS ACIDOPHILUS CAP (BACID) PO SCH ×2 (08:11→21:06)
[2018-08-07] MEDS: PANTOPRAZOLE 40MG TAB (PROTONIX) PO SCH (08:11)
[2018-08-07] MEDS: ENOXAPARIN 40 MG/0.4 ML SYRINGE (J1650) SC SCH (08:12)
[2018-08-07] MEDS: NITROFURANTOIN (MACROBID) 100 MG CAP PO SCH ×2 (08:16→21:06)
[2018-08-07] MEDS: LOSARTAN 25 MG TAB PO SCH (10:00)
--- NOTE | 2018-08-07 13:02 | IPNPDOC ---
Date Seen The patient was seen on 08/07/18. Progress Note HPI:The patient is a 73-year-old right-handed male, who initially presented to [facility] on 07/16/18. At the time, he presented with right-sided facial droop, as well as right hemiparesis. He had undergo an extensive evaluation at their facility including echocardiogram with negative bubble study. Preserved ejection fraction. At the end of their work up, he was noted to have severe distal M3 stenosis, as well as right vertebral stenosis at C5, which they feel to be the etiology of his right pontine cerebrovascular accident (CVA). He was been transferred to the care of TALISHA, Dr Ross, 07/20/18. The patient is OOB. Pt anxious for d/c. No voiced concerns. He denies chest pain, shortness of breath, abdominal pain, nausea, vomiting, diarrhea, or urinary complaints. PAST MEDICAL HISTORY: 1. Hypertension. 2. Diabetes. 3. Coronary artery disease, status post coronary artery bypass graft (CABG), four vessels 4. CKD3 PE: GEN: 73yoF, appears stated age. Alert and oriented x 3. Pleasant, interactive. HEENT: Normocephalic, atraumatic. Sclera are nonicteric. Conjunctiva without injection. Moist mucous membranes. Rt facial droop noted. CHEST: Regular rate and rhythm, +S1, +S2 LUNGS: Clear to auscultation bilaterally. No wheezes, rales, or rhonchi. ABD: Round, soft, non-tender, non-distended. +Bowel sounds throughout. EXT: No lower extremity edema appreciated. SKIN: [place], dry, warm. No rashes. NEURO: Alert and oriented x 3. Dysarthria noted. Rt hemiparesis. A&P: The patient is a 73-year-old right-handed male, who initially presented to [facility] on 07/16/18. At the time, he presented with right-sided facial droop, as well as right hemiparesis. He had undergo an extensive evaluation at their facility including echocardiogram with negative bubble study. Preserved ejection fraction. At the end of their work up, he was noted to have severe distal M3 stenosis, as well as right vertebral stenosis at C5, which they feel to be the etiology of his right pontine cerebrovascular accident (CVA). He was been transferred to the care of TALISHA, Dr Ross, 07/20/18. 1. Right pontine cerebrovascular accident (CVA). Mgmt as per ARU. Outpt F/U with Neurology. PT/OT/ST as per ARU. Pain control/Bowel care as per ARU. DVT prophylaxis. Pt on Lovenox. Disposition as per ARU. Continue Aspirin 81mg, Plavix 75mg, Lipitor 80mg. 2. Type 2 diabetes. CC diet. SSI Levemir. 3. Hypertension. Cozaar 25 mg daily. Norvasc 10 mg daily. Blood pressure reasonably controlled Monitor. 4. Coronary artery disease. Continue aspirin and statin. He is not on a beta duncan. HR trend noted to be 53-68 bpm. 5. CKD. SCr 1.35. Appears to be at baseline 1.5-1.6. Continue to monitor. 6. UTI. E coli. Macrobid D2 Monitor BMP. VS, I&O, 24H, Fishbone Vital Signs/I&O Vital Signs Date Time Temp Pulse Resp B/P (MAP) Pulse Ox O2 Delivery O2 Flow Rate FiO2 08/07/18 10:00 133/85 08/07/18 08:11 68 08/07/18 06:00 97.5 18 92 I&O- Last 24 Hours up to 6 AM 08/07/18 05:59 Intake Total 1040 ml Output Total 1075 ml Balance -35 ml Laboratory Data 24H LABS Laboratory Tests 2 08/06/18 16:58: Bedside Glucose (Misc Panel) 108 08/07/18 06:17: Anion Gap 7L, Glomerular Filtration Rate 54.8, Blood Urea Nitrogen 26H, Creatinine 1.35H, Sodium Level 140, Potassium Level 3.8, Chloride Level 106, Carbon Dioxide Level 27, Calcium Level 8.9 CBC/BMP Laboratory Tests 08/07/18 06:17 Calcium Level 8.9 Microbiology Microbiology 08/03/18 Urine Culture - Final, Complete Escherichia Coli Jolynn Cobos Aug 07, 2018 13:02
[2018-08-07 14:00] VITALS: BP 132/69
--- NOTE | 2018-08-07 16:40 | IPNPDOC ---
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 REVIEW OF SYSTEMS: The following is a completed review of systems and has been reviewed. Review of systems otherwise unremarkable. PAIN: Patient self reports no pain. EYES: Negative fo recent vision loss EARS, NOSE, & THROAT: +dysphagia(improving) CARDIOVASCULAR:denies chest pain or palpitations PULMONARY: Negative. Denies shortness of breath GASTROINTESTINAL: Negative for diarrhea or constipation GENITOURINARY: Negative for dysuria or hematuria NEUROLOGICAL: +stroke with dysarthria, and right sided paresis HEMATOLOGICAL: Negative SKIN: intact PSYCHIATRIC: Unremarkable. All other review of systems found to be negative. PHYSICAL EXAMINATION: VITAL SIGNS: Please see below. GENERAL: Pleasant and cooperative. No acute distress. HEENT: PERRL. Extraocular movements intact. Clear conjunctiva, glasses, visual collins intact CARDIOVASCULAR: Regular rate and rhythm. No murmurs, rubs, or gallops. LUNGS: Clear to auscultation bilaterally. No wheezes. No rhonchi. ABDOMEN: Soft, nontender, nondistended. Positive bowel sounds. Normal active bow el sounds NEUROLOGICAL: Alert and oriented times three. Cranial nerves II through XII grossly intact, right eyebrow sparing facial droop, +dysarthria, non-fluent aphasia, comprehension intact, no anomia, no dysmetria on the left EXTREMITIES: 3/5 right elbow flexors, 2/5 elbow extensors, 2/5 wrist extension, 2/5 career discovery teacher 5\5 strength left upper extremities. 2/5 right hip flexors, 3/5 knee extensor, 3 +/5 ankle DF and EHL. 5/5 strength in left lower extremity. Decreased sensation to light touch RUE and RLE SKIN: intact ASSESSMENT:73-year-old M with past medical history of HTN, CAD who presents status post left pontine stroke. PLAN: 1. Rehab: PT, OT DIE REPAIRER STAMPING and assess for DME needs, ambulating with platform RW with assistance, diet upgraded to regular diet and thins, getting more return in RUE- will trial constraint induced movement therapy and e-stim, right wrist extension improving, continue resting splint -will trial e-stim to ankle dorsiflexors as well 2. Neuro: s/p left pontine infarct with RUE and RLE paresis with dysphagia thought to be [id number] thromboembolic due to severe intracerebral stenosis, continue ASA-Plavix, statin, and BP meds, goal BP will be 130-140s given risk of hypoperfusion, medicine consulted-stable -Prozac for mood and motor recovery 3. Cardio: pmh HTN and CAD s/p 4 vessels, continue antiplatelet therapy and Amlodipine and Losartan, monitor and adjust as needed 4. Resp: encourage incentive spirometry, monitor for aspiration and infection- stable 5. Endo: pmh DM continue insulin, continue metformin 6. DVT ppx: Lovenox and TEDs 7. : admission UA and Ucx negative, voiding well, repeat UA + E. Coli, start 14 day course of Macrobid, start Bacid 8. GI ppx; protonix 9. Dispo: 08/08/18 to home, progressing towards goals, family training in progress, home eval today Allergies Coded Allergies: No Known Allergies (Unverified , 07/20/18) Vital Signs Vital Signs Date Time Temp Pulse Resp B/P (MAP) Pulse Ox O2 Delivery O2 Flow Rate FiO2 08/07/18 14:00 97.4 76 19 132/69 (90) 96 Laboratory Data CBC/BMP Laboratory Tests 08/07/18 06:17 Calcium Level 8.9 Labs 24H Laboratory Tests 2 08/06/18 16:58: Bedside Glucose (Misc Panel) 108 08/07/18 06:17: Anion Gap 7L, Glomerular Filtration Rate 54.8, Blood Urea Nitrogen 26H, Creatinine 1.35H, Sodium Level 140, Potassium Level 3.8, Chloride Level 106, Carbon Dioxide Level 27, Calcium Level 8.9 Microbiology Microbiology 08/03/18 Urine Culture - Final, Complete Escherichia Coli Current Medications Current Medications Current Medications Acetaminophen (Tylenol Tab) 650 mg Q4HP PRN PO fever/MILD PAIN (PS 1-4) Last administered on 08/05/18at 10:43; Start 07/20/18 at 16:30 Amlodipine Besylate (Norvasc) 10 mg DAILY PO Last administered on 08/07/18at 08:11; Start 07/21/18 at 09:00 Aspirin (Aspirin Chewable) 81 mg DAILY PO Last administered on 08/07/18at 08:11; Start 07/21/18 at 09:00 Atorvastatin Calcium (Lipitor) 80 mg DAILY PO Last administered on 08/07/18at 08:11; Start 07/21/18 at 09:00 Bisacodyl (Dulcolax Suppository) 10 mg DAILYPRN PRN [place] CONSTIPATION; Start 07/20/18 at 16:30 Clopidogrel Bisulfate (PLAVix) 75 mg DAILY PO Last administered on 08/07/18at 08:10; Start 07/21/18 at 09:00 Dextrose (Dextrose 50%) 25 ml ASDIRECTED PRN IV SEE LABEL COMMENTS; Start 07/20/18 at 16:30 Docusate Sodium (Colace) 100 mg BID PO Last administered on 08/04/18at 08:32; Start 07/20/18 at 21:00 Enoxaparin Sodium (Lovenox) 40 mg DAILY SC Last administered on 08/07/18at 08:12; Start 07/21/18 at 09:00 Fluoxetine HCl (PROzac) 20 mg DAILY PO Last administered on 08/07/18at 08:10; Start 07/21/18 at 09:00 Glucagon (Glucagon) 1 mg ASDIRECTED PRN SC SEE LABEL COMMENTS; Start 07/20/18 at 16:30 Glucose (Glucose) 16 GM ASDIRECTED PRN PO SEE LABEL COMMENTS; Start 07/20/18 at 16:30 Home Med (Med Rec Complete!) ASDIRECTED XX ; Start 07/20/18 at 17:30; Stop 07/20/18 at 17:30; Status DC Insulin Detemir (Levemir Insulin) 5 units QHS SC Last administered on 07/31/18at 21:15; Start 07/20/18 at 21:00; Stop 08/01/18 at 08:55; Status DC Insulin Human Lispro (HumaLOG INSULIN) SEE PROTOCOL TABLE AC SC Last administered on 08/01/18at 08:14; Start 07/20/18 at 17:30; Stop 08/01/18 at 08:55; Status DC Lactobacillus Acidophilus (Bacid) 2 ea BID PO Last administered on 08/07/18at 08:11; Start 08/06/18 at 09:00 Losartan Potassium (Cozaar) 25 mg DAILY PO ; Start 07/21/18 at 09:00; Stop 07/21/18 at 09:00; Status DC Losartan Potassium (Cozaar) 25 mg DAILY@1000 PO Last administered on 08/07/18 10:00; Start 07/21/18 at 10:00 Magnesium Hydroxide (Milk Of Magnesia) 30 ml DAILYPRN PRN PO CONSTIPATION; Start 07/20/18 at 16:30 Metformin HCl (Glucophage) 1,000 mg DAILY@0730 PO Last administered on 08/07/18 08:10; Start 08/01/18 at 07:30 Nitrofurantoin Monoh/Nitrofur Macro (Macrobid) 100 mg BID PO Last administered on 08/07/18 08:16; Start 08/06/18 at 09:00; Stop 08/19/18 at 21:01 Ondansetron HCl (Zofran) 4 mg Q6HP PRN PO NAUSEA; Start 07/20/18 at 16:30 Pantoprazole Sodium (Protonix) 40 mg DAILY PO Last administered on 08/07/18 08:11; Start 07/21/18 at 09:00 Senna (Senokot) 1 tab QHS PO Last administered on 08/03/18at 20:41; Start 07/20/18 at 21:00 RENNY GUZMAN MD Aug 07, 2018 16:40
--- NOTE | 2018-08-07 16:41 | IPNPDOC ---
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 REVIEW OF SYSTEMS: The following is a completed review of systems and has been reviewed. Review of systems otherwise unremarkable. PAIN: Patient self reports no pain. EYES: Negative fo recent vision loss EARS, NOSE, & THROAT: +dysphagia(improving) CARDIOVASCULAR:denies chest pain or palpitations PULMONARY: Negative. Denies shortness of breath GASTROINTESTINAL: Negative for diarrhea or constipation GENITOURINARY: Negative for dysuria or hematuria NEUROLOGICAL: +stroke with dysarthria, and right sided paresis HEMATOLOGICAL: Negative SKIN: intact PSYCHIATRIC: Unremarkable. All other review of systems found to be negative. PHYSICAL EXAMINATION: VITAL SIGNS: Please see below. GENERAL: Pleasant and cooperative. No acute distress. HEENT: PERRL. Extraocular movements intact. Clear conjunctiva, glasses, visual collins intact CARDIOVASCULAR: Regular rate and rhythm. No murmurs, rubs, or gallops. LUNGS: Clear to auscultation bilaterally. No wheezes. No rhonchi. ABDOMEN: Soft, nontender, nondistended. Positive bowel sounds. Normal active bowel sounds NEUROLOGICAL: Alert and oriented times three. Cranial nerves II through XII grossly intact, right eyebrow sparing facial droop, +dysarthria, non-fluent aphasia, comprehension intact, no anomia, no dysmetria on the left EXTREMITIES: 3/5 right elbow flexors, 2/5 elbow extensors, 2/5 wrist extension, 2/5 strategic client executive 5\5 strength left upper extremities. 2/5 right hip flexors, 3/5 knee extensor, 3+/5 ankle DF and EHL. 5/5 strength in left lower extremity. Decreased sensation to light touch RUE and RLE SKIN: intact ASSESSMENT:73-year-old M with past medical history of HTN, CAD who presents status post left pontine stroke. PLAN: 1. 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 Neuro: s/p left pontine infarct with RUE and RLE paresis with dysphagia thought to be [id number] thromboembolic due to severe intracerebral stenosis, continue ASA-Plavix, statin, and BP meds, goal BP will be 130-140s given risk of hypoperfusion, medicine consulted-stable -Prozac for mood and motor recovery 3. Cardio: pmh HTN and CAD s/p 4 vessels, continue antiplatelet therapy and Amlodipine and Losartan, monitor and adjust as needed 4. Resp: encourage incentive spirometry, monitor for aspiration and infection- stable 5. Endo: pmh DM continue insulin, continue metformin 6. DVT ppx: Lovenox and TEDs 7. : admission UA and Ucx negative, voiding well, repeat UA + E. Coli, contin ue 14 day course of Macrobid and Bacid 8. GI ppx; protonix 9. Dispo: 08/08/18 to home, progressing towards goals, family training in progress Allergies Coded Allergies: No Known Allergies (Unverified , 07/20/18) Vital Signs Vital Signs Date Time Temp Pulse Resp B/P (MAP) Pulse Ox O2 Delivery O2 Flow Rate FiO2 08/07/18 14:00 97.4 76 19 132/69 (90) 96 Laboratory Data CBC/BMP Laboratory Tests 08/07/18 06:17 Calcium Level 8.9 Labs 24H Laboratory Tests 2 08/06/18 16:58: Bedside Glucose (Misc Panel) 108 08/07/18 06:17: Anion Gap 7L, Glomerular Filtration Rate 54.8, Blood Urea Nitrogen 26H, Creatinine 1.35H, Sodium Level 140, Potassium Level 3.8, Chloride Level 106, Carbon Dioxide Level 27, Calcium Level 8.9 Microbiology Microbiology 08/03/18 Urine Culture - Final, Complete Escherichia Coli Current Medications Current Medications Current Medications Acetaminophen (Tylenol Tab) 650 mg Q4HP PRN PO fever/MILD PAIN (PS 1-4) Last administered on 08/05/18at 10:43; Start 07/20/18 at 16:30 Amlodipine Besylate (Norvasc) 10 mg DAILY PO Last administered on 08/07/18at 08:11; Start 07/21/18 at 09:00 Aspirin (Aspirin Chewable) 81 mg DAILY PO Last administered on 08/07/18at 08:11; Start 07/21/18 at 09:00 Atorvastatin Calcium (Lipitor) 80 mg DAILY PO Last administered on 08/07/18at 08:11; Start 07/21/18 at 09:00 Bisacodyl (Dulcolax Suppository) 10 mg DAILYPRN PRN [place] CONSTIPATION; Start 07/20/18 at 16:30 Clopidogrel Bisulfate (PLAVix) 75 mg DAILY PO Last administered on 08/07/18at 08:10; Start 07/21/18 at 09:00 Dextrose (Dextrose 50%) 25 ml ASDIRECTED PRN IV SEE LABEL COMMENTS; Start 07/20/18 at 16:30 Docusate Sodium (Colace) 100 mg BID PO Last administered on 08/04/18at 08:32; Start 07/20/18 at 21:00 Enoxaparin Sodium (Lovenox) 40 mg DAILY SC Last administered on 08/07/18at 08:12; Start 07/21/18 at 09:00 Fluoxetine HCl (PROzac) 20 mg DAILY PO Last administered on 08/07/18at 08:10; Start 07/21/18 at 09:00 Glucagon (Glucagon) 1 mg ASDIRECTED PRN SC SEE LABEL COMMENTS; Start 07/20/18 at 16:30 Glucose (Glucose) 16 GM ASDIRECTED PRN PO SEE LABEL COMMENTS; Start 07/20/18 at 16:30 Home Med (Med Rec Complete!) ASDIRECTED XX ; Start 07/20/18 at 17:30; Stop 07/20/18 at 17:30; Status DC Insulin Detemir (Levemir Insulin) 5 units QHS SC Last administered on 07/31/18at 21:15; Start 07/20/18 at 21:00; Stop 08/01/18 at 08:55; Status DC Insulin Human Lispro (HumaLOG INSULIN) SEE PROTOCOL TABLE AC SC Last adm inistered on 08/01/18at 08:14; Start 07/20/18 at 17:30; Stop 08/01/18 at 08:55; Status DC Lactobacillus Acidophilus (Bacid) 2 ea BID PO Last administered on 08/07/18at 08:11; Start 08/06/18 at 09:00 Losartan Potassium (Cozaar) 25 mg DAILY PO ; Start 07/21/18 at 09:00; Stop 07/21/18 at 09:00; Status DC Losartan Potassium (Cozaar) 25 mg DAILY@1000 PO Last administered on 08/07/18at 10:00; Start 07/21/18 at 10:00 Magnesium Hydroxide (Milk Of Magnesia) 30 ml DAILYPRN PRN PO CONSTIPATION; Start 07/20/18 at 16:30 Metformin HCl (Glucophage) 1,000 mg DAILY@0730 PO Last administered on 08/07/18at 08:10; Start 08/01/18 at 07:30 Nitrofurantoin Monoh/Nitrofur Macro (Macrobid) 100 mg BID PO Last administered on 08/07/18 08:16; Start 08/06/18 at 09:00; Stop 08/19/18 at 21:01 Ondansetron HCl (Zofran) 4 mg Q6HP PRN PO NAUSEA; Start 07/20/18 at 16:30 Pantoprazole Sodium (Protonix) 40 mg DAILY PO Last administered on 08/07/18at 08:11; Start 07/21/18 at 09:00 Senna (Senokot) 1 tab QHS PO Last administered on 08/03/18at 20:41; Start 07/20/18 at 21:00 RENNY GUZMAN MD Aug 07, 2018 16:41
[2018-08-07 20:00] VITALS: BP 158/86
[2018-08-07] MEDS: SENNA 8.6 MG TAB (SENOKOT) PO SCH (21:00)
[2018-08-08 06:00] VITALS: BP 148/76
[2018-08-08] MEDS: ENOXAPARIN 40 MG/0.4 ML SYRINGE (J1650) SC SCH (08:19)
[2018-08-08] MEDS: NITROFURANTOIN (MACROBID) 100 MG CAP PO SCH (08:20)
[2018-08-08] MEDS: ATORVASTATIN 20 MG TAB PO SCH (08:20)
[2018-08-08] MEDS: LACTOBACILLUS ACIDOPHILUS CAP (BACID) PO SCH (08:20)
[2018-08-08] MEDS: FLUoxetine 20 MG CAP PO SCH (08:20)
[2018-08-08] MEDS: ASPIRIN 81 MG CHEW TABLET PO SCH (08:20)
[2018-08-08] MEDS: metFORMIN (GLUCOPHAGE) 1000 MG TABLET PO SCH (08:20)
[2018-08-08] MEDS: PANTOPRAZOLE 40MG TAB (PROTONIX) PO SCH (08:20)
[2018-08-08] MEDS: DOCUSATE SODIUM 100 MG CAP PO SCH (08:21)
[2018-08-08] MEDS: amLODIPine 10 MG TAB PO SCH (08:21)
[2018-08-08] MEDS: CLOPIDOGREL 75 MG TAB PO SCH (08:21)
[2018-08-08] MEDS ORDERED: FLUO20CA19 PO (09:27)
[2018-08-08] MEDS ORDERED: COZA1TAB PO (09:27)
[2018-08-08] MEDS ORDERED: METF10004 PO (09:27)
[2018-08-08] MEDS ORDERED: CHIL81CH2 PO (09:27)
[2018-08-08] MEDS ORDERED: PANT40TA3 PO (09:27)
[2018-08-08] MEDS ORDERED: CLOP75TA2 PO (09:27)
[2018-08-08] MEDS ORDERED: ATOR1TAB21 PO (09:27)
[2018-08-08] MEDS ORDERED: MACR100C43 PO (09:27)
[2018-08-08] MEDS ORDERED: AMLO10TA5 PO (09:27)
[2018-08-08 10:03] VITALS: BP 153/83
[2018-08-08] MEDS: LOSARTAN 25 MG TAB PO SCH (10:03)
--- NOTE | 2018-08-21 12:46 | PMRDS ---
DATE OF ADMISSION: 07/20/2018 DATE OF DISCHARGE: 08/08/2018 CHIEF COMPLAINT/DISCHARGE DIAGNOSIS: Stroke. HISTORY OF PRESENT ILLNESS: A 73-year-old male with a past medical history of diabetes, hypertension, coronary artery disease (CAD) status post four vessels who presented to [facility] emergency department (ED) on 07/16/2018 after waking up dizzy with difficulty speaking and leg weakness. Upon arrival, he had aphasia, facial droop, right-sided upper extremity hemiplegia with a NIHSS of 7. He was outside of the TPA window, given it was greater than 4.5 hours since onset of symptoms. He was admitted to the stroke unit, placed on telemetry, and started on aspirin and Plavix in addition to statins. MRI brain 07/16/2018 revealed acute infarct in the left ponschronic microvascular ischemic disease. CTA head and neck 07/16/2018 showed severe focal stenosis distal left [id number] stenosis of the proximal right cervical vertebral arteryno large vessel occlusion, aneurysm, dissection, or arteriovenous malformation in the major intracranial arteriesno large vessel occlusion or dissection in the major cervical arteriesno acute intracranial hemorrhage or evidence of acute infarctionchronic lacunar infarct in the left basal ganglia. Given his lack of proximal occlusions, he was ineligible for a mechanical endovascular stroke intervention. CT perfusion study on 07/16/2018 showed mismatch volume: 27mL. Most likely represents false penumbra due to severe stenosis right cervical vertebral artery at C6-C7 level causing hypoperfusion in the right occipital lobe." TTE on 07/17/2018 showed LVEF 60 to 65%...the left atrium is mildly dilated...no interatrial shunt visualized by color Doppler and bubble. His left pontine stroke was considered to be due to [id number] thromboembolism in the setting of severe left M3 stenosis. He was initially managed with permissive hypertension. Later, blood pressure (BP) medications were added to his medication list. He was found to have elevated creatinine with unknown etiology that did not respond to IVF. He was laced on a dysphagia diet, found to have activities of daily living (ADL) and gait impairment and deemed medically appropriate for discharge to ARU on 07/20/2018. PAST MEDICAL HISTORY: As per history of present illness (HPI). HOSPITAL COURSE: The patient was admitted and enrolled in a comprehensive physical therapy (PT) and occupational therapy (OT) speech, language, pathology program. He received 24-hour nursing supervision, and weekly team meetings were held to discuss his progress. During his hospital course, his diet was upgraded to a regular diet and thinned. He gained motor strength, regained motor strength in his right upper extremity, and responded to electrical stimulation (E-stim). He was maintained on aspirin, Plavix, statin for secondary stroke prevention, and his blood pressures were maintained between 130s and 140s. He was started on Prozac for mood and motor recovery; and overall, his blood pressure was well controlled. He used his incentive spirometer, and there were no signs of respiratory infection during his hospital course. He continued on insulin and metformin and Lovenox for deep venous thrombosis (DVT) prophylaxis. His admission urinalysis (UA) and urine culture were negative. He voided well. However, repeat UA was positive for Escherichia (E.) coli, and he was started on a 14-day course of Macrobid. He performed very well, made quick gains, and was deemed functionally and medically stable to return to home. DISCHARGE MEDICATIONS: - amlodipine 10 - aspirin 81 - atorvastatin 80 - Plavix 75 - fluoxetine 20 - losartan 25 daily - Macrobid - metformin FUNCTIONAL HISTORY UPON DISCHARGE: The patient was modified independent for sit to stand and stand to sit, standby assist for bed to chair and chair to bed, standby assist for toilet to commode, able to ambulate 150 feet, standby assist with a platform walker. was trained, and he was able to perform car transfers. Deemed functionally and medically appropriate to return to home with home services.
== END 2018-08-08 12:25 | disposition home or self-care (01) | DRG 57 ==
LOC: M PM&R 16:14
PROVIDERS: ADMIT Physical Medicine & Rehabilitation; ATTEND Physical Medicine & Rehabilitation
DX: I69.351 Hemiplegia and hemiparesis following cerebral infarction affecting right dominant side (principal); I12.9 Hypertensive chronic kidney disease with stage 1 through stage 4 chronic kidney disease, or unspecified chronic kidney disease; I25.10 Atherosclerotic heart disease of native coronary artery without angina pectoris; E11.9 Type 2 diabetes mellitus without complications; I69.391 Dysphagia following cerebral infarction; Z79.82 Long term (current) use of aspirin; E03.9 Hypothyroidism, unspecified; B96.29 Other Escherichia coli [E. coli] as the cause of diseases classified elsewhere; N18.3 Chronic kidney disease, stage 3 (moderate)

== ENCOUNTER 2018-09-05 13:00 | Outpatient (RCR) | payer MEDICARE ==
[~2018-09-05 13:00] MED LIST: AMLO10TA5 PO; ASPI81CH PO; ATOR1TAB21 PO; ATOR80TA59 PO; CHIL81CH2 PO; CLOP75TA2 PO; COZA1TAB PO; DOCU100C16 PO; FLUO20CA19 PO; LOSA25TA14 PO; MACR100C43 PO; METF10004 PO; MIRA3350 PO; PANT40TA3 PO
== END 2018-09-09 ==
LOC: M OT 13:00
PROVIDERS: ATTEND Nurse Practitioner Family
DX: I63.40 Cerebral infarction due to embolism of unspecified cerebral artery (principal)

== ENCOUNTER 2018-10-08 09:38 | Outpatient (RCR) | payer MEDICARE ==
[~2018-10-08 09:38] MED LIST changes: +ASPI-286 PO; -ASPI81CH PO; +ASPI81CH49 PO; -CHIL81CH2 PO
== END 2018-10-09 ==
LOC: M OT 09:38
PROVIDERS: ATTEND Nurse Practitioner Family
DX: I63.40 Cerebral infarction due to embolism of unspecified cerebral artery (principal)

== ENCOUNTER → 2018-11-02 | Outpatient (CLI) | payer MEDICARE ==
[2018-11-02 17:32] LABS: ALBUMIN 4.1 GM/DL (3.2-5.2); BILIRUBIN,TOTAL 0.7 MG/DL (0.2-1.0); CALCIUM LEVEL 9.2 MG/DL (8.8-10.2); CHOLESTEROL RISK RATIO 4.742 (<5); CREATININE FOR GFR 1.41 MG/DL (0.70-1.30); GLOMERULAR FILTRATION RATE 52.2 (>42); POTASSIUM SERUM 4.4 MEQ/L (3.5-5.1); TOTAL PROTEIN 7.1 GM/DL (6.4-8.2)
[2018-11-02 17:33] LABS: HEMATOCRIT 45.7 % (42.0-52.0); HEMOGLOBIN 14.9 g/dl (13.5-17.5); MEAN CORPUSCULAR HEMOGLOBIN 30.3 pg (27.0-33.0); MEAN CORPUSCULAR HGB CONC 32.6 g/dl (32.0-36.5); MEAN CORPUSCULAR VOLUME 93.1 fl (80.0-96.0); PLATELET COUNT, AUTOMATED 227 10^3/uL (150-450); RED BLOOD COUNT 4.91 10^6/uL (4.30-6.10); WHITE BLOOD COUNT 7.5 10^3/uL (4.0-10.0)
[2018-11-02 17:42] LABS: HEMOGLOBIN A1c 5.7 %
[2018-11-02 18:02] LABS: MAU/CREAT RATIO 93.1 MCG/MG (0.0-30.0)
== END ==
LOC: M LRY 10:15
PROVIDERS: ATTEND Nurse Practitioner Family
DX: I10 Essential (primary) hypertension (principal); E78.5 Hyperlipidemia, unspecified; E11.9 Type 2 diabetes mellitus without complications

== ENCOUNTER 2018-11-08 08:16 | Outpatient (RCR) | payer MEDICARE | END 2018-11-09 | LOC: M OT 08:16 | PROVIDERS: ATTEND Nurse Practitioner Family | DX: R26.89 Other abnormalities of gait and mobility (principal) ==

== ENCOUNTER 2018-12-06 07:30 | Outpatient (RCR) | payer MEDICARE | END 2018-12-09 | LOC: M OT 07:30 | PROVIDERS: ATTEND Nurse Practitioner Family | DX: R26.89 Other abnormalities of gait and mobility (principal) ==

== ENCOUNTER 2018-12-11 14:54 | Inpatient (IN) | payer MEDICARE ==
[~2018-12-11] VITALS: Ht 177.8 cm; Wt 84.0 kg
[2018-12-11] MEDS ORDERED: MOM 30ML SUSPENSION UDC PO PRN (15:30)
[2018-12-11] MEDS ORDERED: DEXTROSE 50% 50 ML SYRINGE IV PRN (15:30)
[2018-12-11] MEDS ORDERED: MAALOX 30 ML SUSP *UDC PO PRN (15:30)
[2018-12-11] MEDS ORDERED: GLUCAGON FOR INJ 1 MG VIAL (J1610) SC PRN (15:30)
[2018-12-11] MEDS ORDERED: GLUCOSE 4 GM CHEW TABLET PO PRN (15:30)
[2018-12-11 16:43] VITALS: BP 123/71
[2018-12-11 17:21] LABS: BASO # 0.1 10^3/uL (0.0-0.2); BASO % 0.7 % (0.0-1.0); EOS # 0.2 10^3/uL (0.0-0.50); HEMATOCRIT 44.5 % (42.0-52.0); HEMOGLOBIN 14.7 g/dl (13.5-17.5); LYMPH # 0.9 10^3/uL (1.5-4.5); LYMPH % 11.9 % (24.0-44.0); MEAN CORPUSCULAR HEMOGLOBIN 30.6 pg (27.0-33.0); MEAN CORPUSCULAR VOLUME 92.7 fl (80.0-96.0); MONO # 0.7 10^3/uL (0.0-0.8); MONO % 9.6 % (0.0-5.0); NEUTROPHILS # 5.6 10^3/uL (1.8-7.7); NEUTROPHILS % 75.4 % (36.0-66.0); PLATELET COUNT, AUTOMATED 177 10^3/uL (150-450); WHITE BLOOD COUNT 7.4 10^3/uL (4.0-10.0)
[2018-12-11] MEDS ORDERED: MORPHINE 4 MG/ML 1ML VIAL/SYRINGE (J2270) IV PRN (17:30)
[2018-12-11] MEDS ORDERED: ONDANSETRON 4MG/2ML VIAL (J2405) IV PRN ×2 (17:30→22:15)
[2018-12-11] MEDS ORDERED: D5W/0.9% SODIUM CHLORIDE 1,000 ML IV SCH (17:36)
[2018-12-11] MEDS ORDERED: FLUO1TAB3 PO (17:44)
[2018-12-11] MEDS ORDERED: ASPI81TA85 PO (17:44)
[2018-12-11 17:49] LABS: CALCIUM LEVEL 8.5 MG/DL (8.8-10.2); CREATININE FOR GFR 2.9 MG/DL (0.70-1.30); GLOMERULAR FILTRATION RATE 22.7 (>42)
[2018-12-11] MEDS ORDERED: PEPT262C2 PO (17:49)
[2018-12-11] MEDS: amLODIPine 10 MG TAB PO SCH (18:55)
[2018-12-11] MEDS: FLUoxetine 20 MG CAP PO SCH (18:55)
--- NOTE | 2018-12-11 19:25 | SMCUROLCON ---
Urology Consultation General Date of Consultation 12/11/18 Reason For Consultation This patient is seen for Acute Kidney Injury. History of Present Illness 73 year old male with PMH of Acute ischemic CVA in the left Luciano with right hemiparesis in jul 2018 now with mild residual paresis, Diabetes diet control led, hypertension, hyperlipidemia, CKD stage 3, CAD s/p CABG presented initially to the [place] ED this morning for 4 days history of abdominal pain and frequency of urination with several episodes of vomiting 4 days ago when the pain first started. Since then he has been nauseas, constipated and unable to eat much. CT abdomen and pelvis in [place] showed 6 mm L UPJ stone with moderate hydronephrosis, gall stones, no cholecystitis, moderate splenomegaly upto 15cm, big prostate; 6.3cm x 6.5 cm. Labs at [place] were significant for BUN/ cr of 42/3.1, WBC 7.8, Hb 15.3, Patient was transferred here for SUE on CKD, obstructive uropathy and for urological evaluation. Medications Current Medications Current Medications Al Hydrox/Mg Hydrox/Simethicone (Mylanta) 10 ml DAILY PRN PO DYSPEPSIA; Start 12/11/18 at 15:30 Amlodipine Besylate (Norvasc) 10 mg DAILY PO Last administered on 12/11/18at 18:55; Start 12/11/18 at 09:00 Atorvastatin Calcium (Lipitor) 40 mg QPM PO ; Start 12/11/18 at 21:00 Dextrose (Dextrose 50%) 25 ml ASDIRECTED PRN IV SEE LABEL COMMENTS; Start 12/11/18 at 15:30 Dextrose/Sodium Chloride 1,000 ml @ 100 mls/hr Q10H IV Last administered on 12/11/18at 17:58; Start 12/11/18 at 17:36 Docusate Sodium (Colace) 100 mg BID PO ; Start 12/11/18 at 21:00 Fluoxetine HCl (PROzac) 20 mg DAILY PO Last administered on 12/11/18at 18:55; Start 12/11/18 at 09:00 Glucagon (Glucagon) 1 mg ASDIRECTED PRN SC SEE LABEL COMMENTS; Start 12/11/18 at 15:30 Glucose (Glucose) 16 GM ASDIRECTED PRN PO SEE LABEL COMMENTS; Start 12/11/18 at 15:30 Home Med (Med Rec Complete!) ASDIRECTED XX ; Start 12/11/18 at 18:00; Stop 12/11/18 at 18:00; Status DC Insulin Human Lispro (HumaLOG INSULIN) See Protocol Table QHS SC ; Start 12/11/18 at 21:00 Magnesium Hydroxide (Milk Of Magnesia) 30 ml DAILY PRN PO CONSTIPATION; Start 12/11/18 at 15:30 Morphine Sulfate (Morphine Sulfate Inj) 4 mg Q4HP PRN IV SEVERE PAIN (PS 8-10) Last administered on 12/11/18at 18:00; Start 12/11/18 at 17:30 Ondansetron HCl (ZOFRAN INJection) 4 mg Q6HP PRN IV NAUSEA OR VOMITING; Start 12/11/18 at 17:30 Allergies Allergies: Coded Allergies: No Known Allergies (Unverified , 07/20/18) Review of Systems General: Denies: ROS Unobtainable, Chills, Night Sweats, Fatigue, Malaise, Normal Appetite, Other Symptoms Constitutional: Denies: Fever, Chills, Sweats, Weakness, Malaise, Other Eyes: Denies: Pain, Vision change, Conjunctivae inflammation, Eyelid inflammati on, Redness, Other ENT: Denies: Head Aches, Ear Pain, Dysphagia, Sinus Congestion, Post Nasal Drip, Sore Throat, Epistaxis, Other Symptoms Skin: Denies: Rash, Lesions, Jaundice, Bruising, Itching, Dry, Breakdown, Nail Changes, Other Pulmonary: Denies: Dyspnea, Cough, Pleuritic Chest Pain, Other Symptoms Cardiovascular: Denies Chest Pain, Denies Palpitations, Denies Orthopnea, Denies Paroxysmal Noc. Dyspnea, Denies Edema, Denies Lt Headedness, Denies Other Symptoms Gastrointestinal: Reports: Nausea, Vomiting; Denies: Abdominal Pain, Diarrhea, Constipation, Melena, Hematochezia, Other Symptoms Hematologic: Denies: Bruising, Bleeding Excessively, Petecchia, Purpura, Enlarged Lymph Nodes, Other Hematologic Endocrine: Denies: Polydipsia, Polyphagia, Polyuria, Heat Intolerance, Cold Intolerance, Other Endocrine Sx Musculoskeletal: Denies: Neck Pain, Back Pain, Shoulder Pain, Arm Pain, Hand Pain, Leg Pain, Foot Pain, Joint Pain, Muscle Pain, Spasms, Other Symptoms Neurological: Denies: Weakness, Numbness, Incoordination, Change in Speech, Confusion, Seizures, Other Symptoms Psych: Denies: Mood Normal, Anxiety, Depression, Memory Issues, Thoughts of Self Harm, Anger, Thoughts of harming Other, Other Psych Physical Examination General Exam: Alert, Cooperative; No: No Acute Distress, Mild Distress, Moderate Distress, Severe Distress, Other EYE EXAM: PERRLA, Conjunctiva & lids normal, EOMI, Sclera icteric, Ptosis, Other Eye Symptoms ENT EXAM: Atraumatic, Mucous membr. moist/pink, Pharynx Normal, Tongue Midline, Pharyngeal Edema, Nares Patent, Tympanic Membranes Normal, Ext Auditory Canal Nml, Pinna Normal, Other ENT Neck Exam: Supple, JVD, thyromegaly, +2 carotid pulse wo bruit, Lymphadenopathy, Other Male Exam: Normal Genital Exam Vital Signs/I&O Vital Signs Date Time Temp Pulse Resp B/P (MAP) Pulse Ox O2 Delivery O2 Flow Rate FiO2 12/11/18 18:10 18 12/11/18 16:43 97.7 70 123/71 (88) 94 Laboratory Data 24H Labs Laboratory Tests 2 12/11/18 17:02: Bedside Glucose (Misc Panel) 89 12/11/18 17:12: Immature Granulocyte % (Auto) 0.4, White Blood Count 7.4, Red Blood Count 4.80, Hemoglobin 14.7, Hematocrit 44.5, Mean Corpuscular Volume 92.7, Mean Corpuscular Hemoglobin 30.6, Mean Corpuscular Hemoglobin Concent 33.0, Red Cell Distribution Width 12.9, Platelet Count 177, Neutrophils (%) (Auto) 75.4H, Lymphocytes (%) (Auto) 11.9L, Monocytes (%) (Auto) 9.6H, Eosinophils (%) (Auto) 2.0, Basophils (%) (Auto) 0.7, Neutrophils # (Auto) 5.6, Lymphocytes # (Auto) 0.9L, Monocytes # (Auto) 0.7, Eosinophils # (Auto) 0.2, Basophils # (Auto) 0.1, Nucleated Red Blood Cells % (auto) 0.0, Anion Gap 6L, Glomerular Filtration Rate 22.7L, Blood Urea Nitrogen 38H, Creatinine 2.90H, Sodium Level 141, Potassium Level 4.0, Chloride Level 109H, Carbon Dioxide Level 26, Calcium Level 8.5L 12/11/18 18:57: CBC/BMP Laboratory Tests 12/11/18 17:12 Red Blood Count 4.80, Mean Corpuscular Volume 92.7, Mean Corpuscular Hemoglobin 30.6, Mean Corpuscular Hemoglobin Concent 33.0, Red Cell Distribution Width 12.9, Neutrophils (%) (Auto) 75.4 H, Lymphocytes (%) (Auto) 11.9 L, Monocytes (%) (Auto) 9.6 H, Eosinophils (%) (Auto) 2.0, Basophils (%) (Auto) 0.7, Neutrophils # (Auto) 5.6, Lymphocytes # (Auto) 0.9 L, Monocytes # (Auto) 0.7, Eosinophils # (Auto) 0.2, Basophils # (Auto) 0.1, Calcium Level 8.5 L Assessment Pt has left obstructing urinary tract from 6 mm distal stone. Pt has not eaten since Monday after suffering from nausea and vomiting. He has been drinking some although little amounts of fluids. He has not drank anything since midnight. He has suffered from lower abdominal pain that has been intermittently controlled with pain medications. Plan Treatment options were discussed. I recommended to monitor patient in hospital tonight after placement of left ureteral stent to relief left urinary obstruction. I will contact the operating room to schedule as add on. Time Spent on Consult: Time Spent / Consult (Minutes): 28 PAO BELLE MD Dec 11, 2018 19:25
--- NOTE | 2018-12-11 19:47 | HPEPDOC ---
General Date of Admission Dec 11, 2018 at 16:50 Date of Service: Dec 11, 2018 Chief Complaint The patient is a 73-year-old male admitted with a reason for visit of Acute Kidney Injury. 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 Since then he has been nauseas, constipated and unable to eat much. CT abdomen and pelvis in [place] showed 6 mm L UPJ stone with moderate hydronephrosis, gall stones, no cholecystitis, moderate splenomegaly upto 15cm, big prostate; 6.3cm x 6.5 cm. Labs at [place] were significant for BUN/ cr of 42/3.1, WBC 7.8, Hb 15.3, Patient was transferred here for SUE on CKD, obstructive uropathy and for urological evaluation. Patient complains of lower abdominal pain dull aching in nature 10/10 in intensity relieved by morphine associated with nausea and constipation. No radiation. patient received 1 dose of Zosyn at [place] ED. Home Medications Scheduled Amlodipine Besylate (Amlodipine Besylate) 10 Mg Tab, 10 MG PO DAILY, (Reported) Aspirin (Aspir 81) 81 Mg Tablet.dr, 81 MG PO DAILY, (Reported) Atorvastatin Calcium (Atorvastatin Calcium) 80 Mg Tab, 40 MG PO QPM, (Reported) Clopidogrel Bisulfate (Clopidogrel) 75 Mg Tab, 75 MG PO DAILY, (Reported) Fluoxetine HCl (Fluoxetine HCl) 20 Mg Tablet, 20 MG PO DAILY, (Reported) Losartan Potassium (Losartan Potassium) 25 Mg Tab, 25 MG PO DAILY, (Reported) Scheduled PRN Bismuth Subsalicylate (Pepto-Bismol) 262 Mg Tab.chew, 524 MG PO Q6H PRN for INDIGESTION, (Reported) Allergies Coded Allergies: No Known Allergies (Unverified , 07/20/18) Past Medical History Medical History 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 D yspnea, Lt Headedness Gastrointestinal: Reports: Nausea, Vomiting, Abdominal Pain, Constipation; Denies: Diarrhea Genitourinary: Reports: Frequency, Hematuria (after carcamo) Hematologic: Denies: Bruising, Bleeding Excessively Musculoskeletal: Denies: Neck Pain, Back Pain, Joint Pain, Muscle Pain, Spasms Neurological: Reports: Weakness (of th right side) Physical Examination General Exam: Positive: Alert, Cooperative, Mild Distress Eye Exam: Positive: PERRLA, Conjunctiva & lids normal, EOMI; Negative: Sclera icteric ENT Exam: Positive: Atraumatic, Mucous membr. moist/pink, Pharynx Normal Chest Exam: Positive: Clear to auscultation, Normal air movement Heart Exam: Positive: Rate Normal, Regular Rhythm, Normal S1, Normal S2; Negative: Murmurs, Rubs Abdomen Exam: Positive: Normal bowel sounds, Soft, Tenderness (inteh hypogastrium extending to both the right and left illiac fossa) Extremity Exam: Positive: Normal pulses; Negative: Clubbing, Cyanosis, Edema Skin Exam: Positive: Nl turgor and temperature; Negative: Breakdown, Lesion Neuro Exam: Positive: Normal Speech, Normal Tone (strength is 4/5 in the right lower extremity others are normal ) Vital Signs Vital Signs Date Time Temp Pulse Resp B/P (MAP) Pulse Ox O2 Delivery O2 Flow Rate FiO2 12/11/18 18:10 18 Laboratory Data Labs 24H Laboratory Tests 2 12/11/18 17:02: Bedside Glucose (Misc Panel) 89 12/11/18 17:12: Immature Granulocyte % (Auto) 0.4, White Blood Count 7.4, Red Blood Count 4.80, Hemoglobin 14.7, Hematocrit 44.5, Mean Corpuscular Volume 92.7, Mean Corpuscular Hemoglobin 30.6, Mean Corpuscular Hemoglobin Concent 33.0, Red Cell Distribution Width 12.9, Platelet Count 177, Neutrophils (%) (Auto) 75.4H, Lymphocytes (%) (Auto) 11.9L, Monocytes (%) (Auto) 9.6H, Eosinophils (%) (Auto) 2.0, Basophils (%) (Auto) 0.7, Neutrophils # (Auto) 5.6, Lymphocytes # (Auto) 0.9L, Monocytes # (Auto) 0.7, Eosinophils # (Auto) 0.2, Basophils # (Auto) 0.1, Nucleated Red Blo od Cells % (auto) 0.0, Anion Gap 6L, Glomerular Filtration Rate 22.7L, Blood Urea Nitrogen 38H, Creatinine 2.90H, Sodium Level 141, Potassium Level 4.0, Chloride Level 109H, Carbon Dioxide Level 26, Calcium Level 8.5L CBC/BMP Laboratory Tests 12/11/18 17:12 Red Blood Count 4.80, Mean Corpuscular Volume 92.7, Mean Corpuscular Hemoglobin 30.6, Mean Corpuscular Hemoglobin Concent 33.0, Red Cell Distribution Width 12.9, Neutrophils (%) (Auto) 75.4 H, Lymphocytes (%) (Auto) 11.9 L, Monocytes (%) (Auto) 9.6 H, Eosinophils (%) (Auto) 2.0, Basophils (%) (Auto) 0.7, Neutrophils # (Auto) 5.6, Lymphocytes # (Auto) 0.9 L, Monocytes # (Auto) 0.7, Eosinophils # (Auto) 0.2, Basophils # (Auto) 0.1, Calcium Level 8.5 L Assessment/Plan 73 year old male with PMH of 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 Since then he has been nauseas, constipated and unable to eat much. CT abdomen and pelvis in [place] showed 6 mm L UPJ stone with moderate hydronephrosis, gall stones, no cholecystitis, moderate splenomegaly upto 15cm, big prostate; 6.3cm x 6.5 cm. Labs at [place] were significant for BUN/ cr of 42/3.1, WBC 7.8, Hb 15.3, Patient was transferred here for SUE on CKD, obstructive uropathy and for urological evaluation. Obstructive uropathy due to 6mm obstructing stone at the left uretero-pelvic junction with moderate left hydronephrosis Urology consulted. For possible OR today will keep NPO, IVF, Morphine and zofran. received Zosyn in [place] will send ua and urine culture. SUE on CKD baseline creatinine about 1.5 now worse due to obstructive uropathy Patient also has BPH carcamo was place will some trauma and mild hematuria. will send UA and Urine culture. CAD s/p CABG TTE as part of stroke work up on 07/17/18 showed, LVEF 60-65%...the left atrium is mildly dilated..no interatrial shunt visualized by color Doppler and bubble will reume ASA and PLavix when cleared by Urology. continue statin Ischemic CVA in JUL 2018 with right residual paresis acute infarct in the left luciano. CTA Head and Neck 07/16/18 showed, severe focal stenosis distal left [id number] stenosis of the proximal right cervical vertebral artery His left pontine stroke was considered to be due to [id number] thromboembolism in the setting of severe left M3 stenosis patient now ambulates with a cane. will continue ASA and PLavix when cleared by urology. Hypertension will hold losartan due to SUE continue amlodipine Hyperlipidemia continue statin. Type 2 diabetes diet controlled at home here will give lispro sliding scale. GERD PPI DVT prophylaxis ordered. Plan / VTE VTE Prophylaxis Ordered?: Yes CARMINA BAEZA MD Dec 11, 2018 18:49
[2018-12-11 20:00] VITALS: BP 135/75
[2018-12-11] MEDS ORDERED: LIDOCAINE 2% INJ 100 MG/5 ML SDV (FOR ANES.) As Ordered ONE (20:13)
[2018-12-11] MEDS ORDERED: MIDAZOLAM INJ 2 MG/2 ML VIAL (J2250) As Ordered ONE (20:13)
[2018-12-11] MEDS ORDERED: PROPOFOL 200 MG/20 ML VIAL As Ordered ONE ×2 (20:13→21:26)
[2018-12-11] MEDS ORDERED: fentaNYL 100 MCG/2 ML INJECTION (J3010) As Ordered ONE (20:13)
[2018-12-11] MEDS ORDERED: ATORVASTATIN 20 MG TAB PO SCH (21:00)
[2018-12-11] MEDS ORDERED: HumaLOG INSULIN (NovoLOG) PER UNIT SC SCH (21:00)
[2018-12-11] MEDS ORDERED: CONRAY-60 60% 50ML VIAL (Q9961) As Ordered ONE (21:03)
[2018-12-11] MEDS ORDERED: ONDANSETRON 4MG/2ML VIAL (J2405) As Ordered ONE (21:20)
[2018-12-11] MEDS ORDERED: cefTRIAXone SOD 1 GM in D5W MINI-BAG PLUS 50 ML IV SCH (22:00)
[2018-12-11] MEDS ORDERED: PERCOCET 5MG/325MG TAB PO PRN (22:15)
[2018-12-11] MEDS ORDERED: fentaNYL 100 MCG/2 ML INJECTION (J3010) IV PRN (22:15)
[2018-12-11] MEDS ORDERED: LR 1,000 ML IV SCH (22:15)
--- NOTE | 2018-12-11 22:32 | ROOPDOC ---
[facility] Report Of Operation Report of Operation DATE OF PROCEDURE: 12/11/18 PREPROCEDURE DIAGNOSES: [Left-sided obstructing ureteral calculus]. POSTPROCEDURE DIAGNOSES: [Same]. PROCEDURE: [Cystoscopy with left retrograde pyelogram and left double-J ureteral stent placement]. SURGEON: [Susannah], [employer] EDUCATION [employer] TEACHER: [None] ANESTHESIA: [Sedation]. ESTIMATED BLOOD LOSS: Approximately [minimal] mL. COMPLICATIONS: [None]. REMARKS: . PROCEDURE NOTE: [Is an 73-year-old male with a history of nausea and vomiting starting 4 days ago. He also had lower left abdominal pain that transferred to the right side as well. Last night at midnight. Pain, significantly increased and became unbearable at that point. Patient stopped drinking any fluids is went to the closest emergency room. Pain was initially controlled with medication and then the pain returned. CT scan revealed a left obstructing stone, 6 mm in size with perinephric stranding. He was transferred to [facility] [place] and evaluated by me. Patient was diagnosed with retractable urinary obstruction and pain. Risks, benefits and complications of the treatment options were discussed. Patient elected to proceed with procedure as outlined.]. DESCRIPTION OF PROCEDURE: [Consent was signed prior to procedure. Patient was brought to the cystoscopy suite and identified itself. He was given sedation. Currie catheter was removed. He was prepped and draped in a standard fashion. A Timeout was performed. Cystoscope was placed in the urethra. Patient noted to have a large prostate. Bladder was inspected and no gross pathology was noted. He was also noted to have debris within his bladder consistent with stones. Left ureteral orifice was identified. Ureteral orifice was cannulated using a Polloc k catheter with the assistance of a angled guidewire. Retrograde pyelogram was performed and noted a proximal obstructing ureteral calculus. A guide wire was placed through the Pollack catheter into the kidney. Pollack catheter was removed. The 7 Chadian double-J stent was placed over the wire and cannulated into the renal pelvis. The double-J stent had a coil in the renal pelvis and in the bladder. The bladder was drained. Copious amount of urine was noted to be draining through the double-J stent. The bladder was filled with fluid and the cystoscope was removed. A 16 Chadian Currie catheter was placed through the urethra and drained the bladder and the balloon of the catheter was filled to 10 mL. Patient was taken out of lithotomy position, properly washed off, awakened from anesthesia and taken recovery room. Plan to discharge to the floor]. PAO BELLE MD Dec 11, 2018 22:32
[2018-12-11 22:40] VITALS: BP 136/83
[2018-12-11 23:00] VITALS: BP 134/80
[2018-12-11 23:30] VITALS: BP 115/69
[2018-12-12] VITALS (7 sets, daily range): BP systolic 111–122; BP diastolic 65–75
[2018-12-12] MEDS: DOCUSATE SODIUM 100 MG CAP PO SCH ×2 (00:38→08:21)
[2018-12-12 06:02] LABS: BASO % 0.6 % (0.0-1.0); EOS # 0.2 10^3/uL (0.0-0.50); EOS % 2.1 % (0.0-3.0); HEMATOCRIT 41.1 % (42.0-52.0); HEMOGLOBIN 13.6 g/dl (13.5-17.5); LYMPH # 0.7 10^3/uL (1.5-4.5); LYMPH % 10.5 % (24.0-44.0); MEAN CORPUSCULAR HEMOGLOBIN 30.6 pg (27.0-33.0); MEAN CORPUSCULAR HGB CONC 33.1 g/dl (32.0-36.5); MEAN CORPUSCULAR VOLUME 92.4 fl (80.0-96.0); MONO # 0.6 10^3/uL (0.0-0.8); MONO % 8.8 % (0.0-5.0); NEUTROPHILS # 5.5 10^3/uL (1.8-7.7); NEUTROPHILS % 77.6 % (36.0-66.0); PLATELET COUNT, AUTOMATED 174 10^3/uL (150-450); RED BLOOD COUNT 4.45 10^6/uL (4.30-6.10); WHITE BLOOD COUNT 7.1 10^3/uL (4.0-10.0)
[2018-12-12 06:26] LABS: CALCIUM LEVEL 8.1 MG/DL (8.8-10.2); CREATININE FOR GFR 2.5 MG/DL (0.70-1.30); GLOMERULAR FILTRATION RATE 26.9 (>42); POTASSIUM SERUM 3.9 MEQ/L (3.5-5.1)
[2018-12-12] MEDS: FLUoxetine 20 MG CAP PO SCH (08:18)
[2018-12-12] MEDS: HumaLOG INSULIN (NovoLOG) PER UNIT SC SCH ×2 (08:18→12:00)
[2018-12-12] MEDS: amLODIPine 10 MG TAB PO SCH (08:20)
--- NOTE | 2018-12-12 10:21 | REP ---
C-ARM VIEWS DURING LEFT URETERAL STENT PLACEMENT: Four C-arm views are performed. There appears to be an oval calcification in the region of the proximal left ureter. Contrast was injected into the left ureter, partially opacifying the ureter, with contrast extending into a partially opacified left pelvicaliceal system. A left ureteral stent is placed. Proximal end is coiled in the left renal pelvis. The distal end is not visualized. 20 seconds of fluoroscopy time utilized. Electronically Signed by Elliot Jaramillo MD 12/12/2018 04:20 P
[2018-12-12] MEDS ORDERED: HumaLOG INSULIN (NovoLOG) PER UNIT SC SCH (21:00)
--- NOTE | 2018-12-12 23:02 | DS.PDOC ---
Discharge Summary General Date of Admission Dec 11, 2018 at 16:50 Date of Discharge 12/12/18 Discharge Summary PROCEDURES PERFORMED DURING STAY: Cystoscopy with left retrograde pyelogram and left double-J ureteral stent placement DISCHARGE DIAGNOSES: Obstructive Uropathy due to Left ureteral stone at the left UPJ. Left Hydronephrosis Sue on CKD due to the above. SECONDARY DIAGNOSIS: Acute ischemic CVA in the left Zora with right hemiparesis in jul 2018 now with mild residual paresis, Diabetes diet controlled, hypertension, hyperlipidemia, CKD stage 3, CAD s/p CABG , Enlarged Prostate, Gall stones, GERD COMPLICATIONS/CHIEF COMPLAINT: Acute Kidney Injury. HISTORY OF PRESENT ILLNESS: please see history and physical HOSPITAL COURSE: 73 year old male with PMH of Acute ischemic CVA in the left Po ns with right hemiparesis in jul 2018 now with mild residual paresis, Diabetes diet controlled, hypertension, hyperlipidemia, CKD stage 3, CAD s/p CABG presented initially to the [place] ED this morning for 4 days history of abdominal pain and frequency of urination with several episodes of vomiting 4 days ago when the pain first started. Since then he has been nauseas, constipated and unable to eat much. CT abdomen and pelvis in [place] showed 6 mm L UPJ stone with moderate hydronephrosis, gall stones, no cholecystitis, moderate splenomegaly upto 15cm, big prostate; 6.3cm x 6.5 cm. Labs at [facility] [place] were significant for BUN/ cr of 42/3.1, WBC 7.8, Hb 15.3, Patient was transferred here for SUE on CKD, obstructive uropathy and for urological evaluation. Obstructive uropathy due to 6mm obstructing stone at the left uretero-pelvic junction with moderate left hydronephrosis s/p left double J ureteral stent placement. UA clean no WBC. SUE on CKD baseline creatinine about 1.5 now worse due to obstructive uropathy Improving after stent placement down from 3.1 to 2.5 Patient also has BPH carcamo was dced before discharge and patient voided. CAD s/p CABG TTE as part of stroke work up on 07/17/18 showed, LVEF 60-65%...the left atrium is mildly dilated..no interatrial shunt visualized by color Doppler and bubble will resume ASA and PLavix continue statin Ischemic CVA in JUL 2018 with right residual paresis acute infarct in the left zora. CTA Head and Neck 07/16/18 showed, severe focal stenosis distal left [id number] stenosis of the proximal right cervical vertebral artery His left pontine stroke was considered to be due to [id number] thromboembolism in the setting of severe left M3 stenosis patient now ambulates with a cane. will continue ASA and PLavix Hypertension will hold losartan due to SUE, Losartan to be restarted after cleared by PMD continue amlodipine Hyperlipidemia continue statin. Type 2 diabetes diet controlled GERD PPI DISCHARGE MEDICATIONS: Please see below. ALLERGIES: Please see below. PHYSICAL EXAMINATION ON DISCHARGE: VITAL SIGNS: Please see below. General Exam: Positive: Alert, Cooperative, Mild Distress Eye Exam: Positive: PERRLA, Conjunctiva & lids normal, EOMI; Negative: Sclera icteric ENT Exam: Positive: Atraumatic, Mucous membr. moist/pink, Pharynx Normal Chest Exam: Positive: Clear to auscultation, Normal air movement Heart Exam: Positive: Rate Normal, Regular Rhythm, Normal S1, Normal S2; Negative: Murmurs, Rubs Abdomen Exam: Positive: Normal bowel sounds, Soft, Nontender Extremity Exam: Positive: Normal pulses; Negative: Clubbing, Cyanosis, Edema Skin Exam: Positive: Nl turgor and temperature; Negative: Breakdown, Lesion Neuro Exam: Positive: Normal Speech, Normal Tone (strength is 4/5 in the right lower extremity others are normal LABORATORY DATA: Please see below. ACTIVITY: [As tolerated]. DIET: As tolerated DISPOSITION: 01 Home, Self-Care. DISCHARGE INSTRUCTIONS: Follow up PMD in 1 week Follow up Urology in 2 weeks ITEMS TO FOLLOWUP ON ON OUTPATIENT: Renal function DISCHARGE CONDITION: [Stable]. TIME SPENT ON DISCHARGE: 35 minutes. Vital Signs/I&Os Vital Signs Date Time Temp Pulse Resp B/P (MAP) Pulse Ox O2 Delivery O2 Flow Rate FiO2 12/12/18 10:00 97.5 66 17 118/69 (85) 96 12/12/18 09:08 2.0 I&O- Last 24 Hours up to 6 AM 12/12/18 06:00 Intake Total 1380 ml Output Total 912 ml Balance 468 ml Laboratory Data Labs 24H Laboratory Tests 2 12/12/18 00:26: Bedside Glucose (Misc Panel) 122H 12/12/18 05:29: Immature Granulocyte % (Auto) 0.4, White Blood Count 7.1, Red Blood Count 4.45, Hemoglobin 13.6, Hematocrit 41.1L, Mean Corpuscular Volume 92.4, Mean Corpuscular Hemoglobin 30.6, Mean Corpuscular Hemoglobin Concent 33.1, Red Cell Distribution Width 12.8, Platelet Count 174, Neutrophils (%) (Auto) 77.6H, Lymphocytes (%) (Auto) 10.5L, Monocytes (%) (Auto) 8.8H, Eosinophils (%) (Auto) 2.1, Basophils (%) (Auto) 0.6, Neutrophils # (Auto) 5.5, Lymphocytes # (Auto) 0.7L, Monocytes # (Auto) 0.6, Eosinophils # (Auto) 0.2, Basophils # (Auto) 0.0, Nucleated Red Blood Cells % (auto) 0.0, Anion Gap 6L, Glomerular Filtration Rate 26.9L, Blood Urea Nitrogen 39H, Creatinine 2.50H, Sodium Level 140, Potassium Level 3.9, Chloride Level 108H, Carbon Dioxide Level 26, Calcium Level 8.1L 12/12/18 11:23: Bedside Glucose (Misc Panel) 124H CBC/BMP Laboratory Tests 12/12/18 05:29 Red Blood Count 4.45, Mean Corpuscular Volume 92.4, Mean Corpuscular Hemoglobin 30.6, Mean Corpuscular Hemoglobin Concent 33.1, Red Cell Distribution Width 12.8, Neutrophils (%) (Auto) 77.6 H, Lymphocytes (%) (Auto) 10.5 L, Monocytes (%) (Auto) 8.8 H, Eosinophils (%) (Auto) 2.1, Basophils (%) (Auto) 0.6, Neutrophils # (Auto) 5.5, Lymphocytes # (Auto) 0.7 L, Monocytes # (Auto) 0.6, Eosinophils # (Auto) 0.2, Basophils # (Auto) 0.0, Calcium Level 8.1 L FSBS Laboratory Tests Test 12/12/18 00:26 12/12/18 11:23 Range/Units Bedside Glucose (Misc Panel) 122 124 83-110 MG/DL Discharge Medications Scheduled Amlodipine Besylate (Amlodipine Besylate) 10 Mg Tab, 10 MG PO DAILY, (Reported) Aspirin (Aspir 81) 81 Mg Tablet.dr, 81 MG PO DAILY, (Reported) Atorvastatin Calcium (Atorvastatin Calcium) 80 Mg Tab, 40 MG PO QPM, (Reported) Clopidogrel Bisulfate (Clopidogrel) 75 Mg Tab, 75 MG PO DAILY, (Reported) Fluoxetine HCl (Fluoxetine HCl) 20 Mg Tablet, 20 MG PO DAILY, (Reported) Scheduled PRN Bismuth Subsalicylate (Pepto-Bismol) 262 Mg Tab.chew, 524 MG PO Q6H PRN for INDIGESTION, (Reported) Allergies Coded Allergies: No Known Allergies (Unverified , 07/20/18) CARMINA BAEZA MD Dec 12, 2018 23:02
== END 2018-12-12 13:15 | disposition home or self-care (01) | DRG 660 ==
LOC: M MSPAV 16:50
PROVIDERS: ADMIT Family Medicine; ATTEND Internal Medicine Nephrology
PROC: 0T778DZ Dilation of Left Ureter with Intraluminal Device, Via Natural or Artificial Opening Endoscopic (ICD-10-PCS; principal; 2018-12-11 20:30)
DX: N13.2 Hydronephrosis with renal and ureteral calculous obstruction (principal); I69.951 Hemiplegia and hemiparesis following unspecified cerebrovascular disease affecting right dominant side; N17.9 Acute kidney failure, unspecified; N18.3 Chronic kidney disease, stage 3 (moderate); E11.9 Type 2 diabetes mellitus without complications; I12.9 Hypertensive chronic kidney disease with stage 1 through stage 4 chronic kidney disease, or unspecified chronic kidney disease; E78.5 Hyperlipidemia, unspecified; I25.10 Atherosclerotic heart disease of native coronary artery without angina pectoris; Z95.1 Presence of aortocoronary bypass graft; K21.9 Gastro-esophageal reflux disease without esophagitis; K80.20 Calculus of gallbladder without cholecystitis without obstruction; Z79.82 Long term (current) use of aspirin; Z79.899 Other long term (current) drug therapy

== ENCOUNTER → 2018-12-17 | Outpatient (CLI) | payer MEDICARE ==
[~2018-12-17] MED LIST changes: +ASPI81TA85 PO; +FLUO1TAB3 PO; +PEPT262C2 PO
[2018-12-17 18:32] LABS: CALCIUM LEVEL 9.6 MG/DL (8.8-10.2); CREATININE FOR GFR 1.58 MG/DL (0.70-1.30); GLOMERULAR FILTRATION RATE 45.7 (>42); POTASSIUM SERUM 4.3 MEQ/L (3.5-5.1)
== END ==
LOC: M LRY 12:20
PROVIDERS: ATTEND Nurse Practitioner Family
DX: N28.9 Disorder of kidney and ureter, unspecified (principal)

== ENCOUNTER 2019-01-08 07:30 | Outpatient (RCR) | payer MEDICARE | END 2019-01-09 | LOC: M OT 07:30 | PROVIDERS: ATTEND Nurse Practitioner Family | DX: Z51.89 Encounter for other specified aftercare (principal); I63.40 Cerebral infarction due to embolism of unspecified cerebral artery ==

== ENCOUNTER → 2019-01-08 | Outpatient (REF) | payer MEDICARE ==
[~2019-01-08] MED LIST changes: +ONDA8TAB7 PO; +TAMS1CAP17 PO
[2019-01-08 13:10] LABS: BASO # 0.1 10^3/uL (0.0-0.2); BASO % 0.9 % (0.0-1.0); EOS # 0.3 10^3/uL (0.0-0.50); EOS % 3.4 % (0.0-3.0); HEMATOCRIT 44.9 % (42.0-52.0); HEMOGLOBIN 14.6 g/dl (13.5-17.5); LYMPH # 1.4 10^3/uL (1.5-4.5); LYMPH % 18.3 % (24.0-44.0); MEAN CORPUSCULAR HGB CONC 32.5 g/dl (32.0-36.5); MEAN CORPUSCULAR VOLUME 89.3 fl (80.0-96.0); MONO # 0.5 10^3/uL (0.0-0.8); MONO % 6.9 % (0.0-5.0); NEUTROPHILS # 5.4 10^3/uL (1.8-7.7); NEUTROPHILS % 70.1 % (36.0-66.0); PLATELET COUNT, AUTOMATED 211 10^3/uL (150-450); RED BLOOD COUNT 5.03 10^6/uL (4.30-6.10); WHITE BLOOD COUNT 7.7 10^3/uL (4.0-10.0)
[2019-01-08 13:17] LABS: APPEARANCE, URINE CLOUDY (CLEAR); BACTERIA, URINE AUTO NEGATIVE (NEGATIVE); BILIRUBIN, URINE AUTO NEGATIVE (NEGATIVE); BLOOD, URINE BLOOD 3+ (NEGATIVE); COLOR, URINE AMBER (YELLOW); GLUCOSE, URINE (UA) AUTO NEGATIVE (NEGATIVE); KETONE, URINE AUTO NEGATIVE (NEGATIVE); LEUKOCYTE ESTERASE, URINE AUTO NEGATIVE (NEGATIVE); MUCUS, URINE LARGE (NEGATIVE); NITRITE, URINE AUTO NEGATIVE (NEGATIVE); PROTEIN, URINE AUTO 2+ mg/dL (NEGATIVE); RBC, URINE AUTO TNTC /HPF (0-3); SPECIFIC GRAVITY URINE AUTO 1.016 (1.002-1.035); SQUAMOUS EPITHELIAL CELL UR AU 0 /HPF (0-6); UROBILINOGEN, URINE AUTO 0.2 mg/dL (0.0-2.0); WBC, URINE AUTO 10 /HPF (0-3)
[2019-01-08 13:18] LABS: CALCIUM LEVEL 9.7 MG/DL (8.8-10.2); CREATININE FOR GFR 1.53 MG/DL (0.70-1.30); GLOMERULAR FILTRATION RATE 47.5 (>42)
[2019-01-08 13:32] LABS: INR 1.06; PARTIAL THROMBOPLASTIN TIME 30.2 SECONDS (25.0-38.4); PROTHROMBIN TIME 13.5 SECONDS (11.8-14.0)
== END ==
LOC: M SFHCLERA 11:04
PROVIDERS: ATTEND Urology
DX: N20.0 Calculus of kidney (principal); Z79.01 Long term (current) use of anticoagulants

== ENCOUNTER → 2019-01-16 | Outpatient (CLI) | payer MEDICARE | LOC: M LRY 11:18 | PROVIDERS: ATTEND Urology | DX: N20.0 Calculus of kidney (principal) ==

== ENCOUNTER 2019-01-25 06:50 | Day surgery (SDC) | payer MEDICARE ==
[~2019-01-25] VITALS: Ht 177.8 cm; Wt 82.9 kg
[~2019-01-25 06:50] MED LIST changes: +CIPROFLOXACIN 400 MG in APPROPRIATE DILUENT 1 EA IV ONE; +LIDOCAINE 1% MDV 20ML VIAL SQ PRN; +LR 1,000 ML IV ONE
[2019-01-25] MEDS ORDERED: CONRAY-60 60% 50ML VIAL (Q9961) As Ordered ONE (06:56)
[2019-01-25] MEDS ORDERED: dexameTHASONE 4 MG/ML 1ML VIAL (J1100) As Ordered ONE (09:02)
[2019-01-25] MEDS ORDERED: fentaNYL 250 MCG/5 ML INJECTION (J3010) As Ordered ONE (09:02)
[2019-01-25] MEDS ORDERED: LIDOCAINE 2% INJ 100 MG/5 ML SDV (FOR ANES.) As Ordered ONE (09:02)
[2019-01-25] MEDS ORDERED: ONDANSETRON 4MG/2ML VIAL (J2405) As Ordered ONE (09:02)
[2019-01-25] MEDS ORDERED: diphenhydrAMINE INJ 50MG/ML VIAL (J1200) As Ordered ONE (09:02)
[2019-01-25] MEDS ORDERED: MIDAZOLAM INJ 2 MG/2 ML VIAL (J2250) As Ordered ONE (09:02)
[2019-01-25] MEDS ORDERED: PROPOFOL 200 MG/20 ML VIAL As Ordered ONE (09:02)
[2019-01-25] MEDS ORDERED: HYDROMORPHONE HCL 0.5 MG/ 0.5 ML SYRINGE (J1170 PER 1) IV PRN (10:15)
[2019-01-25] MEDS ORDERED: PERCOCET 5MG/325MG TAB PO PRN (10:15)
[2019-01-25] MEDS ORDERED: oxyCODONE 5MG TAB PO PRN (10:15)
[2019-01-25] MEDS ORDERED: fentaNYL 100 MCG/2 ML INJECTION (J3010) IV PRN (10:15)
[2019-01-25] MEDS ORDERED: LR 1,000 ML IV SCH (10:15)
[2019-01-25 10:30] VITALS: BP 148/70
--- NOTE | 2019-01-25 11:14 | REP ---
RETROGRADE PYELOGRAM: Four views. HISTORY: Cystoscopy. 10 seconds of fluoroscopy time is reported. FINDINGS: A sequence of four last image hold fluoroscopically obtained spot radiographs of the abdomen document left ureteral cannulation, contrast injection, and stent placement. Initial image demonstrates a calculus at the lower pole of the left kidney. Electronically Signed by Manjinder Ybarra MD 01/25/2019 11:34 A
--- NOTE | 2019-01-29 13:44 | RO ---
DATE OF PROCEDURE: 01/25/2019 PREPROCEDURE DIAGNOSIS: Left kidney stone. POSTPROCEDURE DIAGNOSIS: Left kidney stone. PROCEDURE: Cystoscopy, left ureteroscopy with laser lithotripsy and basket extraction of stones, left retrograde pyelogram with intraoperative interpretation of images, left ureteral stent exchange. SURGEON: Zack Smith MD SALVAGE SUPERVISOR: None. ANESTHESIA: General. OPERATIVE INDICATIONS: This is a 73-year-old male who was brought to the operating room a few weeks ago for a left ureteral stent placement for an obstructing 7-mm proximal left ureteral stone. He was brought to the operating room today for treatment of the stone. DESCRIPTION OF PROCEDURE: The patient was brought to the operating room, and general anesthesia was induced. Prophylactic antibiotics were infused. He was then placed in the dorsal lithotomy position and prepped and draped in the usual sterile fashion. A rigid cystoscope was inserted into the urethral meatus and advanced into the bladder. A guidewire was advanced up into the left collecting system alongside the stent. The left ureteral stent was then completely removed intact. I then advanced a ureteral access sheath over the wire up into the left collecting system. I then went up the access sheath with a flexible ureteroscope and examined the proximal left ureter, and no stones were seen. Within the kidney, the 7-mm stone was seen in a lower pole calyx. The stone was repositioned into an upper pole calyx, and then it was fragmented into smaller pieces using 272 micron laser fiber. Once that was done, all the fragments were removed using a basket. I then shot a retrograde pyelogram, and it was notable for moderate left hydronephrosis with no extravasation. I then withdrew the ureteroscope, along with the access sheath, and no additional stones were seen within the ureter. I then utilized the guidewire to advance a 7-Wallisian x 22-32 cm double J ureteral stent up into the left collecting system. The wire was then removed, and there were adequate curls of the stent in the left renal pelvis and in the bladder. The bladder was then emptied of all fluid, and this marked the conclusion of the procedure. The patient was taken out of the dorsal lithotomy position, awakened from anesthesia, and transported to the recovery room in stable condition. ESTIMATED BLOOD LOSS: 5 mL. COMPLICATIONS: None. SPECIMENS: Kidney stone fragments. PLAN: I will bring the patient back in the office to have the stent removed within the next few weeks. WAQAR
[2019-01-31 10:06] LABS: COMMENT Note: (.); Ca Ox Monohydrate 80 % (.); Uric Acid 15 % (.)
== END 2019-01-25 10:54 | disposition home or self-care (01) ==
LOC: M SDC 06:50
PROVIDERS: ATTEND Urology
DX: N20.0 Calculus of kidney (principal); I25.10 Atherosclerotic heart disease of native coronary artery without angina pectoris; I25.2 Old myocardial infarction; E11.9 Type 2 diabetes mellitus without complications; I10 Essential (primary) hypertension; E78.5 Hyperlipidemia, unspecified; L40.8 Other psoriasis; Z86.73 Personal history of transient ischemic attack (TIA), and cerebral infarction without residual deficits; Z79.02 Long term (current) use of antithrombotics/antiplatelets; Z79.84 Long term (current) use of oral hypoglycemic drugs; Z79.899 Other long term (current) drug therapy; Z87.891 Personal history of nicotine dependence
CPT/HCPCS: 52356; 74420; 82360; 88300; C1769; C2617; J0744; J1100; J1200; J2250; J2405; J3010; Q9961

== ENCOUNTER → 2019-02-05 | Outpatient (REF) | payer MEDICARE ==
[~2019-02-05] MED LIST changes: -CIPROFLOXACIN 400 MG in APPROPRIATE DILUENT 1 EA IV ONE; +FISH1000 PO; -LIDOCAINE 1% MDV 20ML VIAL SQ PRN; -LR 1,000 ML IV ONE
== END ==
LOC: M SMT 13:09
PROVIDERS: ATTEND Urology
DX: N13.2 Hydronephrosis with renal and ureteral calculous obstruction (principal)

== ENCOUNTER 2019-02-07 07:30 | Outpatient (RCR) | payer MEDICARE ==
[~2019-02-07 07:30] MED LIST changes: -FISH1000 PO
== END 2019-02-09 ==
LOC: M PT 07:30
PROVIDERS: ATTEND Nurse Practitioner Family
DX: R26.89 Other abnormalities of gait and mobility (principal)

== ENCOUNTER → 2019-02-14 | Outpatient (CLI) | payer MEDICARE ==
[~2019-02-14] MED LIST changes: +FISH1000 PO
[2019-02-14 16:49] LABS: HEMATOCRIT 42.8 % (42.0-52.0); HEMOGLOBIN 14.2 g/dl (13.5-17.5); MEAN CORPUSCULAR HEMOGLOBIN 29.5 pg (27.0-33.0); MEAN CORPUSCULAR HGB CONC 33.2 g/dl (32.0-36.5); MEAN CORPUSCULAR VOLUME 88.8 fl (80.0-96.0); PLATELET COUNT, AUTOMATED 195 10^3/uL (150-450); RED BLOOD COUNT 4.82 10^6/uL (4.30-6.10); WHITE BLOOD COUNT 6.2 10^3/uL (4.0-10.0)
[2019-02-14 17:30] LABS: MAU/CREAT RATIO 88.3 MCG/MG (0.0-30.0)
[2019-02-14 17:37] LABS: ALBUMIN 4.2 GM/DL (3.2-5.2); BILIRUBIN,TOTAL 0.7 MG/DL (0.2-1.0); CALCIUM LEVEL 9.6 MG/DL (8.8-10.2); CHOLESTEROL RISK RATIO 4.918 (<5); CREATININE FOR GFR 1.42 MG/DL (0.70-1.30); GLOMERULAR FILTRATION RATE 51.7 (>42); POTASSIUM SERUM 4.1 MEQ/L (3.5-5.1); TOTAL PROTEIN 6.9 GM/DL (6.4-8.2)
[2019-02-14 18:02] LABS: HEMOGLOBIN A1c 5.8 %
== END ==
LOC: M LRY 09:54
PROVIDERS: ATTEND Internal Medicine Cardiovascular Disease
DX: I10 Essential (primary) hypertension (principal); E78.49 Other hyperlipidemia; E11.9 Type 2 diabetes mellitus without complications

== ENCOUNTER 2019-02-25 09:14 | Emergency (ER) | payer MEDICARE ==
[~2019-02-25] VITALS: Ht 180.3 cm; Wt 85.6 kg
[~2019-02-25 09:14] MED LIST changes: -FISH1000 PO
[2019-02-25] MEDS ORDERED: FISH1000 PO (09:57)
[2019-02-25 10:54] LABS: BASO # 0.1 10^3/uL (0.0-0.2); EOS # 0.3 10^3/uL (0.0-0.5); EOS % 3.7 % (0.0-3.0); HEMATOCRIT 47.9 % (42.0-52.0); HEMOGLOBIN 15.7 g/dl (13.5-17.5); LYMPH # 1.1 10^3/uL (1.5-5.0); LYMPH % 15.9 % (24.0-44.0); MEAN CORPUSCULAR HEMOGLOBIN 29.6 pg (27.0-33.0); MEAN CORPUSCULAR HGB CONC 32.8 g/dl (32.0-36.5); MEAN CORPUSCULAR VOLUME 90.4 fl (80.0-96.0); MONO # 0.6 10^3/uL (0.0-0.8); MONO % 8.2 % (0.0-5.0); NEUTROPHILS % 71.1 % (36.0-66.0); PLATELET COUNT, AUTOMATED 197 10^3/uL (150-450); WHITE BLOOD COUNT 7.1 10^3/uL (4.0-10.0)
[2019-02-25 11:15] LABS: BLOOD UREA NITROGEN 20 MG/DL (7-18); CALCIUM LEVEL 9.4 MG/DL (8.8-10.2); CARBON DIOXIDE LEVEL 27 MEQ/L (21-32); CHLORIDE LEVEL 109 MEQ/L (98-107); CK-MB VALUE MASS < 1.0 NG/ML (<3.6); CPK CREATINE PHOSPHOKINASE 76 U/L (39-308); CREATININE FOR GFR 1.33 MG/DL (0.70-1.30); GLOMERULAR FILTRATION RATE 55.7 (>42); GLUCOSE, FASTING 129 MG/DL (70-100); MB/CK RELATIVE INDEX 1.32 (< OR =4); MYOGLOBIN 63 NG/ML (16-116); POTASSIUM SERUM 3.9 MEQ/L (3.5-5.1); SODIUM LEVEL 143 MEQ/L (136-145); TROPONIN I < 0.02 NG/ML (< 0.10)
[2019-02-25 12:45] VITALS: BP 148/83
--- NOTE | 2019-02-26 04:38 | ECGEPIP ---
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
== END 2019-02-25 13:12 | disposition home or self-care (01) ==
LOC: M ED 09:14
DX: R53.1 Weakness (principal); I12.9 Hypertensive chronic kidney disease with stage 1 through stage 4 chronic kidney disease, or unspecified chronic kidney disease; N18.3 Chronic kidney disease, stage 3 (moderate); E11.9 Type 2 diabetes mellitus without complications; E78.5 Hyperlipidemia, unspecified; Z79.899 Other long term (current) drug therapy; Z79.84 Long term (current) use of oral hypoglycemic drugs; Z79.02 Long term (current) use of antithrombotics/antiplatelets

== ENCOUNTER 2019-03-06 08:04 | Outpatient (RCR) | payer MEDICARE ==
[~2019-03-06 08:04] MED LIST changes: +FISH1000 PO
== END 2019-03-11 ==
LOC: M OT 08:04
PROVIDERS: ATTEND Nurse Practitioner Family
DX: I63.40 Cerebral infarction due to embolism of unspecified cerebral artery (principal)

== ENCOUNTER → 2019-03-15 | Outpatient (CLI) | payer MEDICARE ==
--- NOTE | 2019-03-15 17:10 | REP ---
RENAL ULTRASOUND: Real-time sonographic evaluation of the kidneys performed. The kidneys are normal in size and echotexture, the right kidney measuring 10.2 x 5.4 x 5.9 cm and left kidney 10.6 x 5.7 x 4.7 cm. There is no hydronephrosis bilaterally. There is a cyst in the upper pole of the right kidney 2.8 x 2.6 x 2.6 cm. There is a small cyst in the upper left kidney 8 mm in diameter. No renal stones are seen. Bilateral ureteral jets are seen in the urinary bladder with Doppler color evaluation. IMPRESSION: There is a cyst in each kidney. No definite stones are seen. No hydronephrosis. Electronically Signed by Elliot Jaramillo MD 03/18/2019 05:00 P
== END ==
LOC: M RAD 12:35
PROVIDERS: ATTEND Urology
DX: N20.1 Calculus of ureter (principal)

== ENCOUNTER → 2019-05-15 | Outpatient (CLI) | payer MEDICARE ==
[2019-05-15 13:19] LABS: HEMATOCRIT 48.2 % (42.0-52.0); HEMOGLOBIN 15.5 g/dl (13.5-17.5); MEAN CORPUSCULAR HGB CONC 32.2 g/dl (32.0-36.5); MEAN CORPUSCULAR VOLUME 90.3 fl (80.0-96.0); PLATELET COUNT, AUTOMATED 212 10^3/uL (150-450); RED BLOOD COUNT 5.34 10^6/uL (4.30-6.10); WHITE BLOOD COUNT 7.2 10^3/uL (4.0-10.0)
[2019-05-15 13:36] LABS: ALBUMIN 4.2 GM/DL (3.2-5.2); BILIRUBIN,TOTAL 0.8 MG/DL (0.2-1.0); CALCIUM LEVEL 9.3 MG/DL (8.8-10.2); CHOLESTEROL RISK RATIO 3.684 (<5); CREATININE FOR GFR 1.65 MG/DL (0.70-1.30); GLOMERULAR FILTRATION RATE 43.4 (>42); POTASSIUM SERUM 4.4 MEQ/L (3.5-5.1); TOTAL PROTEIN 7.1 GM/DL (6.4-8.2)
[2019-05-15 13:37] LABS: HEMOGLOBIN A1c 6.4 %
[2019-05-15 14:16] LABS: APPEARANCE, URINE CLEAR (CLEAR); BACTERIA, URINE AUTO NEGATIVE (NEGATIVE); BILIRUBIN, URINE AUTO NEGATIVE (NEGATIVE); BLOOD, URINE BLOOD NEGATIVE (NEGATIVE); COLOR, URINE YELLOW (YELLOW); GLUCOSE, URINE (UA) AUTO NEGATIVE (NEGATIVE); KETONE, URINE AUTO NEGATIVE (NEGATIVE); LEUKOCYTE ESTERASE, URINE AUTO NEGATIVE (NEGATIVE); MUCUS, URINE SMALL (NEGATIVE); NITRITE, URINE AUTO NEGATIVE (NEGATIVE); PROTEIN, URINE AUTO NEGATIVE (NEGATIVE); RBC, URINE AUTO 0 /HPF (0-3); SPECIFIC GRAVITY URINE AUTO 1.016 (1.002-1.035); SQUAMOUS EPITHELIAL CELL UR AU 0 /HPF (0-6); UROBILINOGEN, URINE AUTO 0.2 mg/dL (0.0-2.0); WBC, URINE AUTO 3 /HPF (0-3)
== END ==
LOC: M LRY 08:48
PROVIDERS: ATTEND Nurse Practitioner Family
DX: E78.5 Hyperlipidemia, unspecified (principal); I10 Essential (primary) hypertension; E11.9 Type 2 diabetes mellitus without complications

== ENCOUNTER → 2019-08-07 | Outpatient (CLI) | payer MEDICARE ==
[~2019-08-07] MED LIST changes: -FLUO20CA19 PO; +FLUO20CA22 PO; +ONDA8TAB10 PO; -ONDA8TAB7 PO
[2019-08-07 12:12] LABS: HEMATOCRIT 45.9 % (42.0-52.0); HEMOGLOBIN 15.3 g/dl (13.5-17.5); MEAN CORPUSCULAR HEMOGLOBIN 29.7 pg (27.0-33.0); MEAN CORPUSCULAR HGB CONC 33.3 g/dl (32.0-36.5); PLATELET COUNT, AUTOMATED 194 10^3/uL (150-450); RED BLOOD COUNT 5.16 10^6/uL (4.30-6.10); WHITE BLOOD COUNT 6.2 10^3/uL (4.0-10.0)
[2019-08-07 12:40] LABS: ALBUMIN 4.3 GM/DL (3.2-5.2); BILIRUBIN,TOTAL 0.8 MG/DL (0.2-1.0); CALCIUM LEVEL 9.5 MG/DL (8.8-10.2); CHOLESTEROL RISK RATIO 3.205 (<5); CREATININE FOR GFR 1.74 MG/DL (0.70-1.30); GLOMERULAR FILTRATION RATE 40.8 (>42); POTASSIUM SERUM 4.2 MEQ/L (3.5-5.1); TOTAL PROTEIN 7.1 GM/DL (6.4-8.2)
[2019-08-07 12:41] LABS: HEMOGLOBIN A1c 6.4 %
[2019-08-07 12:54] LABS: MAU/CREAT RATIO 73.1 MCG/MG (0.0-30.0)
== END ==
LOC: M LRY 10:06
PROVIDERS: ATTEND Nurse Practitioner Family
DX: E78.5 Hyperlipidemia, unspecified (principal); E11.9 Type 2 diabetes mellitus without complications; I10 Essential (primary) hypertension

== ENCOUNTER → 2019-12-31 | Outpatient (CLI) | payer MEDICARE ==
[~2019-12-31] MED LIST changes: -AMLO10TA5 PO; +AMLO1TAB25 PO; -ASPI81TA85 PO; +ASPI81TA86 PO; +PANT40TA29 PO; -PANT40TA3 PO
[2019-12-31 17:19] LABS: ALBUMIN 4.2 GM/DL (3.2-5.2); BILIRUBIN,TOTAL 0.8 MG/DL (0.2-1.0); CALCIUM LEVEL 9.4 MG/DL (8.8-10.2); CHOLESTEROL RISK RATIO 4.333 (<5); CREATININE FOR GFR 1.59 MG/DL (0.70-1.30); GLOMERULAR FILTRATION RATE 45.3 (>42); POTASSIUM SERUM 4.3 MEQ/L (3.5-5.1); TOTAL PROTEIN 7.1 GM/DL (6.4-8.2)
[2019-12-31 17:36] LABS: HEMOGLOBIN A1c 5.8 %
[2019-12-31 17:37] LABS: HEMATOCRIT 46.9 % (42.0-52.0); HEMOGLOBIN 15.5 g/dl (13.5-17.5); MEAN CORPUSCULAR HEMOGLOBIN 29.3 pg (27.0-33.0); MEAN CORPUSCULAR VOLUME 88.7 fl (80.0-96.0); PLATELET COUNT, AUTOMATED 203 10^3/uL (150-450); RED BLOOD COUNT 5.29 10^6/uL (4.30-6.10); WHITE BLOOD COUNT 7.5 10^3/uL (4.0-10.0)
[2019-12-31 18:09] LABS: MAU/CREAT RATIO 105.1 MCG/MG (0.0-30.0)
== END ==
LOC: M LRY 10:03
PROVIDERS: ATTEND Nurse Practitioner Family
DX: E78.5 Hyperlipidemia, unspecified (principal); I10 Essential (primary) hypertension; E11.9 Type 2 diabetes mellitus without complications

== ENCOUNTER → 2020-04-08 | Outpatient (CLI) | payer MEDICARE ==
[2020-04-08 16:45] LABS: HEMATOCRIT 47.7 % (42.0-52.0); HEMOGLOBIN 15.6 g/dl (13.5-17.5); MEAN CORPUSCULAR HEMOGLOBIN 29.4 pg (27.0-33.0); MEAN CORPUSCULAR HGB CONC 32.7 g/dl (32.0-36.5); PLATELET COUNT, AUTOMATED 204 10^3/uL (150-450); WHITE BLOOD COUNT 7.3 10^3/uL (4.0-10.0)
[2020-04-08 17:23] LABS: ALBUMIN 4.2 GM/DL (3.2-5.2); BILIRUBIN,TOTAL 0.8 MG/DL (0.2-1.0); CALCIUM LEVEL 9.5 MG/DL (8.8-10.2); CHOLESTEROL RISK RATIO 3.263 (<5); CREATININE FOR GFR 1.93 MG/DL (0.70-1.30); GLOMERULAR FILTRATION RATE 36.1 (>42); TOTAL PROTEIN 7.2 GM/DL (6.4-8.2)
[2020-04-08 17:25] LABS: TOTAL 25(OH) VITAMIN D 46.9 NG/ML (30.0-100.0)
== END ==
LOC: M WUC 13:28
PROVIDERS: ATTEND Nurse Practitioner Family
DX: I10 Essential (primary) hypertension (principal); E55.9 Vitamin D deficiency, unspecified; E78.5 Hyperlipidemia, unspecified; E11.9 Type 2 diabetes mellitus without complications

== ENCOUNTER → 2020-07-24 | Outpatient (CLI) | payer MEDICARE ==
[2020-07-24 12:38] LABS: HEMATOCRIT 47.2 % (42.0-52.0); MEAN CORPUSCULAR HEMOGLOBIN 28.2 pg (27.0-33.0); MEAN CORPUSCULAR HGB CONC 31.8 g/dl (32.0-36.5); MEAN CORPUSCULAR VOLUME 88.9 fl (80.0-96.0); PLATELET COUNT, AUTOMATED 188 10^3/uL (150-450); RED BLOOD COUNT 5.31 10^6/uL (4.30-6.10); WHITE BLOOD COUNT 5.6 10^3/uL (4.0-10.0)
[2020-07-24 13:07] LABS: ALBUMIN 3.8 GM/DL (3.2-5.2); BILIRUBIN,TOTAL 0.5 MG/DL (0.2-1.0); CALCIUM LEVEL 9.2 MG/DL (8.8-10.2); CHOLESTEROL RISK RATIO 2.609 (<5); CREATININE FOR GFR 1.78 MG/DL (0.70-1.30); GLOMERULAR FILTRATION RATE 39.7 (>42); POTASSIUM SERUM 4.2 MEQ/L (3.5-5.1); TOTAL PROTEIN 6.8 GM/DL (6.4-8.2)
[2020-07-24 13:16] LABS: HEMOGLOBIN A1c 5.9 %
[2020-07-24 13:18] LABS: MALB URINE SIEMENS 74.5 MG/L; MAU/CREAT RATIO 48.3 MCG/MG (0.0-30.0); TOTAL 25(OH) VITAMIN D 43.6 NG/ML (30.0-100.0)
== END ==
LOC: M WUC 09:29
PROVIDERS: ATTEND Nurse Practitioner Family
DX: E78.5 Hyperlipidemia, unspecified (principal); I10 Essential (primary) hypertension; E11.9 Type 2 diabetes mellitus without complications; Z79.899 Other long term (current) drug therapy

== ENCOUNTER → 2020-11-09 | Outpatient (CLI) | payer MEDICARE ==
[2020-11-09 12:51] LABS: HEMATOCRIT 48.2 % (42.0-52.0); HEMOGLOBIN 15.7 g/dl (13.5-17.5); MEAN CORPUSCULAR HEMOGLOBIN 28.4 pg (27.0-33.0); MEAN CORPUSCULAR HGB CONC 32.6 g/dl (32.0-36.5); MEAN CORPUSCULAR VOLUME 87.3 fl (80.0-96.0); PLATELET COUNT, AUTOMATED 192 10^3/uL (150-450); RED BLOOD COUNT 5.52 10^6/uL (4.30-6.10); WHITE BLOOD COUNT 6.2 10^3/uL (4.0-10.0)
[2020-11-09 13:04] LABS: ALBUMIN 3.8 GM/DL (3.2-5.2); BILIRUBIN,TOTAL 0.6 MG/DL (0.2-1.0); CALCIUM LEVEL 9.1 MG/DL (8.8-10.2); CHOLESTEROL RISK RATIO 2.511 (<5); CREATININE FOR GFR 1.43 MG/DL (0.70-1.30); FREE T4 0.96 NG/DL (0.76-1.46); POTASSIUM SERUM 3.6 MEQ/L (3.5-5.1); THYROID STIMULATING HORMONE 2.72 uIU/ML (0.358-3.740); TOTAL PROTEIN 6.9 GM/DL (6.4-8.2)
[2020-11-09 13:07] LABS: HEMOGLOBIN A1c 5.9 %
[2020-11-09 13:35] LABS: MALB URINE SIEMENS 71.4 MG/L; MAU/CREAT RATIO 60.5 MCG/MG (0.0-30.0)
[2020-11-10 11:02] LABS: TOTAL 25(OH) VITAMIN D 30.5 NG/ML (30.0-100.0)
== END ==
LOC: M WUC 09:04
PROVIDERS: ATTEND Nurse Practitioner Family
DX: E78.5 Hyperlipidemia, unspecified (principal); I10 Essential (primary) hypertension; E11.9 Type 2 diabetes mellitus without complications; E55.9 Vitamin D deficiency, unspecified; E03.9 Hypothyroidism, unspecified; E53.8 Deficiency of other specified B group vitamins; Z79.899 Other long term (current) drug therapy

== ENCOUNTER → 2021-01-05 | Outpatient (REF) | payer MEDICARE | LOC: M LAB REF 18:48 | PROVIDERS: ATTEND Internal Medicine Nephrology | DX: N18.32 Chronic kidney disease, stage 3b (principal) ==

== ENCOUNTER → 2021-02-12 | Outpatient (CLI) | payer MEDICARE ==
[2021-02-12 19:37] LABS: HEMATOCRIT 48.7 % (42.0-52.0); HEMOGLOBIN 16.1 g/dl (13.5-17.5); MEAN CORPUSCULAR HEMOGLOBIN 29.3 pg (27.0-33.0); MEAN CORPUSCULAR HGB CONC 33.1 g/dl (32.0-36.5); MEAN CORPUSCULAR VOLUME 88.7 fl (80.0-96.0); PLATELET COUNT, AUTOMATED 213 10^3/uL (150-450); RED BLOOD COUNT 5.49 10^6/uL (4.30-6.10); WHITE BLOOD COUNT 6.7 10^3/uL (4.0-10.0)
[2021-02-12 19:46] LABS: BILIRUBIN,TOTAL 0.9 MG/DL (0.2-1.0); CALCIUM LEVEL 9.3 MG/DL (8.8-10.2); CHOLESTEROL RISK RATIO 2.818 (<5); CREATININE FOR GFR 1.82 MG/DL (0.70-1.30); GLOMERULAR FILTRATION RATE 38.6 (>42); POTASSIUM SERUM 3.9 MEQ/L (3.5-5.1); TOTAL PROTEIN 7.2 GM/DL (6.4-8.2)
[2021-02-12 19:52] LABS: TOTAL 25(OH) VITAMIN D 69.2 NG/ML (30.0-100.0)
[2021-02-12 19:59] LABS: MAU/CREAT RATIO 44.5 MCG/MG (0.0-30.0)
[2021-02-12 20:01] LABS: HEMOGLOBIN A1c 6.2 %
== END ==
LOC: M WUC 15:29
PROVIDERS: ATTEND Nurse Practitioner Family
DX: I10 Essential (primary) hypertension (principal); E78.5 Hyperlipidemia, unspecified; E11.9 Type 2 diabetes mellitus without complications; Z79.899 Other long term (current) drug therapy

== ENCOUNTER → 2021-05-12 | Outpatient (CLI) | payer MEDICARE ==
[~2021-05-12] MED LIST changes: +LOSA25TA13 PO; -LOSA25TA14 PO; +ONDA-84 PO; -ONDA8TAB10 PO
[2021-05-12 12:14] LABS: ALBUMIN 3.9 GM/DL (3.2-5.2); BILIRUBIN,TOTAL 0.7 MG/DL (0.2-1.0); CALCIUM LEVEL 9.9 MG/DL (8.8-10.2); CHOLESTEROL RISK RATIO 3.095 (<5); CREATININE FOR GFR 1.87 MG/DL (0.70-1.30); GLOMERULAR FILTRATION RATE 37.4 (>42); TOTAL 25(OH) VITAMIN D 55.7 NG/ML (30.0-100.0); TOTAL PROTEIN 7.3 GM/DL (6.4-8.2)
[2021-05-12 12:20] LABS: MALB URINE SIEMENS 43.1 MG/L; MAU/CREAT RATIO 39.5 MCG/MG (0.0-30.0)
[2021-05-12 12:38] LABS: HEMATOCRIT 47.7 % (42.0-52.0); HEMOGLOBIN 15.9 g/dl (13.5-17.5); MEAN CORPUSCULAR HEMOGLOBIN 29.6 pg (27.0-33.0); MEAN CORPUSCULAR HGB CONC 33.3 g/dl (32.0-36.5); MEAN CORPUSCULAR VOLUME 88.8 fl (80.0-96.0); PLATELET COUNT, AUTOMATED 221 10^3/uL (150-450); RED BLOOD COUNT 5.37 10^6/uL (4.30-6.10); WHITE BLOOD COUNT 8.1 10^3/uL (4.0-10.0)
[2021-05-12 13:14] LABS: HEMOGLOBIN A1c 6.1 %
== END ==
LOC: M WUC 10:04
PROVIDERS: ATTEND Nurse Practitioner Family
DX: I10 Essential (primary) hypertension (principal); E78.5 Hyperlipidemia, unspecified; E11.9 Type 2 diabetes mellitus without complications; Z79.899 Other long term (current) drug therapy

== ENCOUNTER → 2021-08-09 | Outpatient (CLI) | payer MEDICARE ==
[2021-08-09 12:24] LABS: HEMATOCRIT 44.8 % (42.0-52.0); HEMOGLOBIN 14.7 g/dl (13.5-17.5); MEAN CORPUSCULAR HEMOGLOBIN 28.9 pg (27.0-33.0); MEAN CORPUSCULAR HGB CONC 32.8 g/dl (32.0-36.5); PLATELET COUNT, AUTOMATED 280 10^3/uL (150-450); RED BLOOD COUNT 5.09 10^6/uL (4.30-6.10); WHITE BLOOD COUNT 8.3 10^3/uL (4.0-10.0)
[2021-08-09 13:08] LABS: ALBUMIN 3.6 GM/DL (3.2-5.2); BILIRUBIN,TOTAL 0.9 MG/DL (0.2-1.0); CALCIUM LEVEL 9.3 MG/DL (8.8-10.2); CHOLESTEROL RISK RATIO 3.204 (<5); CREATININE FOR GFR 1.71 MG/DL (0.70-1.30); GLOMERULAR FILTRATION RATE 41.4 (>42); POTASSIUM SERUM 4.1 MEQ/L (3.5-5.1); TOTAL PROTEIN 6.9 GM/DL (6.4-8.2)
[2021-08-09 13:13] LABS: MALB URINE SIEMENS 74.4 MG/L; MAU/CREAT RATIO 64.6 MCG/MG (0.0-30.0)
[2021-08-09 19:07] LABS: HEMOGLOBIN A1c 6.2 %
== END ==
LOC: M WUC 10:06
PROVIDERS: ATTEND Nurse Practitioner Family
DX: I10 Essential (primary) hypertension (principal); E78.5 Hyperlipidemia, unspecified; E11.9 Type 2 diabetes mellitus without complications

== ENCOUNTER → 2021-11-11 | Outpatient (CLI) | payer MEDICARE ==
[~2021-11-11] MED LIST changes: -ASPI-286 PO; +SM C81CH2 PO
[2021-11-11 16:45] LABS: BILIRUBIN,TOTAL 0.9 MG/DL (0.2-1.0); CHOLESTEROL RISK RATIO 3.414 (<5); GLOMERULAR FILTRATION RATE 34.6 (>42); THYROID STIMULATING HORMONE 3.49 uIU/ML (0.358-3.740); TOTAL PROTEIN 7.4 GM/DL (6.4-8.2)
[2021-11-11 16:46] LABS: TOTAL 25(OH) VITAMIN D 81.6 NG/ML (30.0-100.0)
[2021-11-11 16:47] LABS: FOLATE 8.6 NG/ML
[2021-11-11 16:49] LABS: HEMOGLOBIN 16.1 g/dl (13.5-17.5); MEAN CORPUSCULAR HGB CONC 32.2 g/dl (32.0-36.5); PLATELET COUNT, AUTOMATED 214 10^3/uL (150-450); RED BLOOD COUNT 5.75 10^6/uL (4.30-6.10); WHITE BLOOD COUNT 7.5 10^3/uL (4.0-10.0)
[2021-11-11 16:54] LABS: MALB URINE SIEMENS 76.9 MG/L; MAU/CREAT RATIO 23.3 MCG/MG (0.0-30.0)
[2021-11-11 17:48] LABS: HEMOGLOBIN A1c 6.4 %
== END ==
LOC: M WUC 13:58
PROVIDERS: ATTEND Nurse Practitioner Family
DX: E78.5 Hyperlipidemia, unspecified (principal); I10 Essential (primary) hypertension; E55.9 Vitamin D deficiency, unspecified; E11.9 Type 2 diabetes mellitus without complications; Z79.899 Other long term (current) drug therapy

== ENCOUNTER → 2022-02-16 | Outpatient (CLI) | payer MEDICARE ==
[2022-02-16 17:24] LABS: HEMATOCRIT 47.8 % (42.0-52.0); HEMOGLOBIN 15.9 g/dl (13.5-17.5); MEAN CORPUSCULAR HEMOGLOBIN 29.7 pg (27.0-33.0); MEAN CORPUSCULAR HGB CONC 33.3 g/dl (32.0-36.5); MEAN CORPUSCULAR VOLUME 89.2 fl (80.0-96.0); PLATELET COUNT, AUTOMATED 213 10^3/uL (150-450); RED BLOOD COUNT 5.36 10^6/uL (4.30-6.10); WHITE BLOOD COUNT 7.5 10^3/uL (4.0-10.0)
[2022-02-16 17:59] LABS: BILIRUBIN,TOTAL 0.9 MG/DL (0.2-1.0); CALCIUM LEVEL 9.3 MG/DL (8.8-10.2); CHOLESTEROL RISK RATIO 3.365 (<5); CREATININE FOR GFR 1.76 MG/DL (0.70-1.30); GLOMERULAR FILTRATION RATE 40.1 (>42); POTASSIUM SERUM 3.6 MEQ/L (3.5-5.1)
[2022-02-16 18:17] LABS: MALB URINE SIEMENS 32.5 MG/L; MAU/CREAT RATIO 36.9 MCG/MG (0.0-30.0)
[2022-02-16 18:39] LABS: TOTAL 25(OH) VITAMIN D 97.7 NG/ML (30.0-100.0)
== END ==
LOC: M WUC 13:48
PROVIDERS: ATTEND Internal Medicine Cardiovascular Disease
DX: I10 Essential (primary) hypertension (principal); E78.5 Hyperlipidemia, unspecified; E11.9 Type 2 diabetes mellitus without complications; Z12.5 Encounter for screening for malignant neoplasm of prostate; E55.9 Vitamin D deficiency, unspecified

== ENCOUNTER → 2022-06-14 | Outpatient (CLI) | payer MEDICARE ==
[2022-06-14 17:13] LABS: HEMATOCRIT 49.8 % (42.0-52.0); HEMOGLOBIN 16.6 g/dl (13.5-17.5); MEAN CORPUSCULAR HEMOGLOBIN 29.3 pg (27.0-33.0); MEAN CORPUSCULAR HGB CONC 33.3 g/dl (32.0-36.5); PLATELET COUNT, AUTOMATED 218 10^3/uL (150-450); RED BLOOD COUNT 5.66 10^6/uL (4.30-6.10); WHITE BLOOD COUNT 7.4 10^3/uL (4.0-10.0)
[2022-06-14 17:31] LABS: ALBUMIN 4.1 G/DL (3.2-5.2); BILIRUBIN,TOTAL 1.1 MG/DL (0.3-1.2); CALCIUM LEVEL 9.7 MG/DL (8.3-10.6); CHOLESTEROL RISK RATIO 3.46 (<5); CREATININE FOR GFR 1.7 MG/DL (0.70-1.30); GLOMERULAR FILTRATION RATE 41.6 (>42); HDL CHOLESTEROL 37.5 MG/DL (>40); LDL CHOLESTEROL 61.5 MG/DL (<100); POTASSIUM SERUM 4.8 MMOL/L (3.5-5.1); TOTAL PROTEIN 6.8 G/DL (5.7-8.2)
[2022-06-14 17:32] LABS: CREATININE, URINE 51.4 MG/DL; TOTAL 25(OH) VITAMIN D 99.9 NG/ML (20.0-100.0)
[2022-06-14 17:35] LABS: HEMOGLOBIN A1c 6.5 % (4.0-6.0)
== END ==
LOC: M WUC 13:08
PROVIDERS: ATTEND Nurse Practitioner Family
DX: E78.5 Hyperlipidemia, unspecified (principal); I10 Essential (primary) hypertension; E11.9 Type 2 diabetes mellitus without complications; E55.9 Vitamin D deficiency, unspecified; Z79.899 Other long term (current) drug therapy

== ENCOUNTER → 2022-12-14 | Outpatient (CLI) | payer MEDICARE ==
[2022-12-14 12:07] LABS: HEMATOCRIT 49.6 % (42.0-52.0); HEMOGLOBIN 16.7 g/dl (13.5-17.5); MEAN CORPUSCULAR HEMOGLOBIN 29.6 pg (27.0-33.0); MEAN CORPUSCULAR HGB CONC 33.7 g/dl (32.0-36.5); MEAN CORPUSCULAR VOLUME 87.8 fl (80.0-96.0); PLATELET COUNT, AUTOMATED 218 10^3/uL (150-450); RED BLOOD COUNT 5.65 10^6/uL (4.30-6.10); WHITE BLOOD COUNT 8.1 10^3/uL (4.0-10.0)
[2022-12-14 12:24] LABS: HEMOGLOBIN A1c 7.2 % (4.0-6.0)
[2022-12-14 12:37] LABS: MAU/CREAT RATIO 42.8 MCG/MG (0.0-30.0)
[2022-12-14 12:40] LABS: ALBUMIN 4.1 G/DL (3.2-5.2); ALKALINE PHOSPHATASE 109 U/L (46-116); ALT/SGPT 22 U/L (7.0-40); AST/SGOT < 8 U/L (<34); BILIRUBIN,TOTAL 1.2 MG/DL (0.3-1.2); BLOOD UREA NITROGEN 17 MG/DL (9-23); CALCIUM LEVEL 9.3 MG/DL (8.3-10.6); CARBON DIOXIDE LEVEL 28 MMOL/L (20-31); CHLORIDE LEVEL 105 MMOL/L (98-107); CHOLESTEROL LEVEL 145 MG/DL (<200); CHOLESTEROL RISK RATIO 3.81 (<5); CPK CREATINE PHOSPHOKINASE 246 U/L (46-171); CREATININE FOR GFR 1.51 MG/DL (0.70-1.30); GLOMERULAR FILTRATION RATE 47.7 (>42); GLUCOSE, FASTING 156 MG/DL (74-106); LDL CHOLESTEROL 72.8 MG/DL (<100); POTASSIUM SERUM 4.3 MMOL/L (3.5-5.1); SODIUM LEVEL 142 MMOL/L (136-145); TOTAL PROTEIN 6.6 G/DL (5.7-8.2); TRIGLYCERIDES LEVEL 171 MG/DL (<150)
[2022-12-14 12:41] LABS: TOTAL 25(OH) VITAMIN D 67.3 NG/ML (20.0-100.0)
== END ==
LOC: M WUC 09:05
PROVIDERS: ATTEND Internal Medicine Cardiovascular Disease
DX: E78.5 Hyperlipidemia, unspecified (principal); E11.9 Type 2 diabetes mellitus without complications; I10 Essential (primary) hypertension; Z79.899 Other long term (current) drug therapy

== ENCOUNTER → 2023-04-13 | Outpatient (CLI) | payer MEDICARE ==
[~2023-04-13] MED LIST changes: -COZA1TAB PO; +LOSA-527 PO
[2023-04-13 13:00] LABS: BASO # 0.1 10^3/uL (0.0-0.2); BASO % 1.1 % (0.0-1.0); EOS # 0.3 10^3/uL (0.0-0.5); EOS % 4.9 % (0.0-3.0); HEMATOCRIT 51.1 % (42.0-52.0); HEMOGLOBIN 16.8 g/dl (13.5-17.5); LYMPH # 1.4 10^3/uL (1.5-5.0); MEAN CORPUSCULAR HEMOGLOBIN 28.9 pg (27.0-33.0); MEAN CORPUSCULAR HGB CONC 32.9 g/dl (32.0-36.5); MONO # 0.5 10^3/uL (0.0-0.8); MONO % 6.8 % (2.0-8.0); NEUTROPHILS # 4.3 10^3/uL (1.5-8.5); PLATELET COUNT, AUTOMATED 200 10^3/uL (150-450); RED BLOOD COUNT 5.81 10^6/uL (4.30-6.10); WHITE BLOOD COUNT 6.6 10^3/uL (4.0-10.0)
[2023-04-13 13:06] LABS: CREATININE, URINE 143.8 MG/DL
[2023-04-13 13:32] LABS: HEMOGLOBIN A1c 6.1 % (4.0-6.0)
[2023-04-13 13:53] LABS: BILIRUBIN,TOTAL 0.7 MG/DL (0.3-1.2); CALCIUM LEVEL 9.3 MG/DL (8.3-10.6); CHOLESTEROL RISK RATIO 3.29 (<5); CREATININE FOR GFR 1.51 MG/DL (0.70-1.30); GLOMERULAR FILTRATION RATE 47.6 (>35); HDL CHOLESTEROL 39.7 MG/DL (>40); LDL CHOLESTEROL 58.9 MG/DL (<100); NON-HDL-C 91.3 MG/DL; POTASSIUM SERUM 4.1 MMOL/L (3.5-5.1); TOTAL 25(OH) VITAMIN D 64.9 NG/ML (20.0-100.0); TOTAL PROTEIN 6.9 G/DL (5.7-8.2)
== END ==
LOC: M WUC 09:35
PROVIDERS: ATTEND Nurse Practitioner Family
DX: Z01.818 Encounter for other preprocedural examination (principal); E55.9 Vitamin D deficiency, unspecified; E78.5 Hyperlipidemia, unspecified; E11.9 Type 2 diabetes mellitus without complications; I10 Essential (primary) hypertension; Z79.899 Other long term (current) drug therapy

== ENCOUNTER → 2023-05-02 | Outpatient (REF) | payer MEDICARE ==
[2023-05-02 16:57] LABS: IRON (FE) 94 UG/DL (65-175)
[2023-05-02 17:00] LABS: VITAMIN B12 LEVEL 1280 PG/ML (211-911)
== END ==
LOC: M WUC 15:32
PROVIDERS: ATTEND Nurse Practitioner Family
DX: D51.9 Vitamin B12 deficiency anemia, unspecified (principal)

== ENCOUNTER → 2023-07-27 | Outpatient (CLI) | payer MEDICARE ==
[2023-07-27 12:45] LABS: BASO # 0.1 10^3/uL (0.0-0.2); BASO % 0.9 % (0.0-1.0); EOS # 0.3 10^3/uL (0.0-0.5); EOS % 3.7 % (0.0-3.0); HEMATOCRIT 51.6 % (42.0-52.0); HEMOGLOBIN 17.3 g/dl (13.5-17.5); LYMPH # 1.4 10^3/uL (1.5-5.0); LYMPH % 20.7 % (24.0-44.0); MEAN CORPUSCULAR HEMOGLOBIN 30.1 pg (27.0-33.0); MEAN CORPUSCULAR HGB CONC 33.5 g/dl (32.0-36.5); MEAN CORPUSCULAR VOLUME 89.9 fl (80.0-96.0); MONO # 0.5 10^3/uL (0.0-0.8); NEUTROPHILS # 4.5 10^3/uL (1.5-8.5); NEUTROPHILS % 67.4 % (36.0-66.0); PLATELET COUNT, AUTOMATED 201 10^3/uL (150-450); RED BLOOD COUNT 5.74 10^6/uL (4.30-6.10); WHITE BLOOD COUNT 6.7 10^3/uL (4.0-10.0)
[2023-07-27 13:10] LABS: HEMOGLOBIN A1c 6.7 % (4.0-6.0)
[2023-07-27 13:12] LABS: CREATININE, URINE 154.2 MG/DL; MAU/CREAT RATIO 24.6 MCG/MG (0.0-30.0)
[2023-07-27 13:14] LABS: CALCIUM LEVEL 9.1 MG/DL (8.3-10.6); CHOLESTEROL RISK RATIO 3.78 (<5); CREATININE FOR GFR 1.51 MG/DL (0.70-1.30); GLOMERULAR FILTRATION RATE 47.6 (>35); HDL CHOLESTEROL 36.2 MG/DL (>40); NON-HDL-C 100.8 MG/DL; POTASSIUM SERUM 4.5 MMOL/L (3.5-5.1)
== END ==
LOC: M WUC 09:45
PROVIDERS: ATTEND Nurse Practitioner Family
DX: E11.9 Type 2 diabetes mellitus without complications (principal)

== ENCOUNTER → 2023-10-25 | Outpatient (CLI) | payer MEDICARE ==
[2023-10-25 13:12] LABS: BASO # 0.1 10^3/uL (0.0-0.2); BASO % 1.1 % (0.0-1.0); EOS # 0.3 10^3/uL (0.0-0.5); HEMATOCRIT 52.1 % (42.0-52.0); HEMOGLOBIN 17.7 g/dl (13.5-17.5); LYMPH # 1.6 10^3/uL (1.5-5.0); LYMPH % 21.9 % (24.0-44.0); MEAN CORPUSCULAR HEMOGLOBIN 30.6 pg (27.0-33.0); MEAN CORPUSCULAR VOLUME 90.1 fl (80.0-96.0); MONO # 0.6 10^3/uL (0.0-0.8); MONO % 7.9 % (2.0-8.0); NEUTROPHILS # 4.9 10^3/uL (1.5-8.5); PLATELET COUNT, AUTOMATED 198 10^3/uL (150-450); RED BLOOD COUNT 5.78 10^6/uL (4.30-6.10); WHITE BLOOD COUNT 7.5 10^3/uL (4.0-10.0)
[2023-10-25 13:25] LABS: HEMOGLOBIN A1c 6.9 % (4.0-6.0)
[2023-10-25 13:34] LABS: MAU/CREAT RATIO 46.8 MCG/MG (0.0-30.0)
[2023-10-25 13:37] LABS: BILIRUBIN,TOTAL 1.2 MG/DL (0.3-1.2); CALCIUM LEVEL 9.7 MG/DL (8.3-10.6); CHOLESTEROL RISK RATIO 3.94 (<5); CREATININE FOR GFR 1.58 MG/DL (0.70-1.30); GLOMERULAR FILTRATION RATE 45.1 (>35); HDL CHOLESTEROL 38.3 MG/DL (>40); LDL CHOLESTEROL 74.7 MG/DL (<100); NON-HDL-C 112.7 MG/DL; POTASSIUM SERUM 3.8 MMOL/L (3.5-5.1)
[2023-10-25 13:38] LABS: TOTAL 25(OH) VITAMIN D 54.7 NG/ML (20.0-100.0)
== END ==
LOC: M WUC 08:57
PROVIDERS: ATTEND Nurse Practitioner Family
DX: E11.9 Type 2 diabetes mellitus without complications (principal); E55.9 Vitamin D deficiency, unspecified; D51.9 Vitamin B12 deficiency anemia, unspecified

== ENCOUNTER → 2024-03-14 | Outpatient (CLI) | payer MEDICARE ==
[~2024-03-14] MED LIST changes: +FLUO-365 PO; -FLUO20CA22 PO
[2024-03-14 13:19] LABS: BASO # 0.1 10^3/uL (0.0-0.2); BASO % 1.4 % (0.0-1.0); EOS # 0.4 10^3/uL (0.0-0.5); EOS % 5.1 % (0.0-3.0); HEMATOCRIT 53.6 % (42.0-52.0); HEMOGLOBIN 17.7 g/dl (13.5-17.5); LYMPH # 1.5 10^3/uL (1.5-5.0); LYMPH % 20.7 % (24.0-44.0); MEAN CORPUSCULAR HEMOGLOBIN 29.9 pg (27.0-33.0); MEAN CORPUSCULAR VOLUME 90.7 fl (80.0-96.0); MONO # 0.6 10^3/uL (0.0-0.8); NEUTROPHILS # 4.6 10^3/uL (1.5-8.5); NEUTROPHILS % 63.7 % (36.0-66.0); PLATELET COUNT, AUTOMATED 220 10^3/uL (150-450); RED BLOOD COUNT 5.91 10^6/uL (4.30-6.10); WHITE BLOOD COUNT 7.3 10^3/uL (4.0-10.0)
[2024-03-14 13:44] LABS: CREATININE, URINE 153.2 MG/DL; MAU/CREAT RATIO 34.5 MCG/MG (0.0-30.0)
[2024-03-14 13:47] LABS: ALBUMIN 4.2 G/DL (3.2-5.2); CALCIUM LEVEL 10.2 MG/DL (8.3-10.6); CHOLESTEROL RISK RATIO 4.46 (<5); CREATININE FOR GFR 1.55 MG/DL (0.70-1.30); HDL CHOLESTEROL 39.6 MG/DL (>40); NON-HDL-C 137.4 MG/DL; POTASSIUM SERUM 4.2 MMOL/L (3.5-5.1); TOTAL PROTEIN 7.4 G/DL (5.7-8.2)
[2024-03-14 13:48] LABS: TOTAL 25(OH) VITAMIN D 55.5 NG/ML (20.0-100.0)
[2024-03-14 13:53] LABS: HEMOGLOBIN A1c 7.3 % (4.0-6.0)
== END ==
LOC: M WUC 09:11
PROVIDERS: ATTEND Nurse Practitioner Family
DX: E11.9 Type 2 diabetes mellitus without complications (principal); I10 Essential (primary) hypertension; E55.9 Vitamin D deficiency, unspecified

== ENCOUNTER → 2024-07-11 | Outpatient (CLI) | payer BC, MEDICARE ==
[2024-07-11 11:06] LABS: BASO # 0.1 10^3/uL (0.0-0.2); BASO % 1.2 % (0.0-1.0); EOS # 0.3 10^3/uL (0.0-0.5); EOS % 3.4 % (0.0-3.0); HEMATOCRIT 50.3 % (42.0-52.0); LYMPH # 1.6 10^3/uL (1.5-5.0); LYMPH % 18.7 % (24.0-44.0); MEAN CORPUSCULAR HEMOGLOBIN 29.9 pg (27.0-33.0); MEAN CORPUSCULAR HGB CONC 33.8 g/dl (32.0-36.5); MEAN CORPUSCULAR VOLUME 88.6 fl (80.0-96.0); MONO # 0.6 10^3/uL (0.0-0.8); NEUTROPHILS # 5.8 10^3/uL (1.5-8.5); NEUTROPHILS % 69.2 % (36.0-66.0); PLATELET COUNT, AUTOMATED 254 10^3/uL (150-450); RED BLOOD COUNT 5.68 10^6/uL (4.30-6.10); WHITE BLOOD COUNT 8.4 10^3/uL (4.0-10.0)
[2024-07-11 11:22] LABS: HEMOGLOBIN A1c 8.8 % (4.0-6.0)
[2024-07-11 11:30] LABS: ALBUMIN 3.8 G/DL (3.2-5.2); BILIRUBIN,TOTAL 1.1 MG/DL (0.3-1.2); CALCIUM LEVEL 9.3 MG/DL (8.3-10.6); CHOLESTEROL RISK RATIO 4.01 (<5); CREATININE FOR GFR 1.34 MG/DL (0.70-1.30); GLOMERULAR FILTRATION RATE 54.5 (>35); HDL CHOLESTEROL 35.9 MG/DL (>40); LDL CHOLESTEROL 66.9 MG/DL (<100); NON-HDL-C 108.1 MG/DL; POTASSIUM SERUM 3.8 MMOL/L (3.5-5.1); TOTAL PROTEIN 7.2 G/DL (5.7-8.2)
[2024-07-11 11:32] LABS: TOTAL 25(OH) VITAMIN D 53.4 NG/ML (20.0-100.0)
== END ==
LOC: M WUC 08:54
PROVIDERS: ATTEND Nurse Practitioner Family
DX: I10 Essential (primary) hypertension (principal); E11.9 Type 2 diabetes mellitus without complications; E55.9 Vitamin D deficiency, unspecified

== ENCOUNTER → 2025-04-04 | Outpatient (CLI) | payer MEDICARE ==
[2025-04-04 13:03] LABS: BASO # 0.1 10^3/uL (0.0-0.2); BASO % 0.9 % (0.0-1.0); EOS # 0.2 10^3/uL (0.0-0.5); EOS % 3.5 % (0.0-3.0); LYMPH # 1.1 10^3/uL (1.5-5.0); LYMPH % 16.1 % (24.0-44.0); MONO # 0.6 10^3/uL (0.0-0.8); MONO % 8.0 % (2.0-8.0); NEUTROPHILS # 4.9 10^3/uL (1.5-8.5); NEUTROPHILS % 71.2 % (36.0-66.0); PLATELET COUNT, AUTOMATED 213 10^3/uL (150-450)
[2025-04-04 13:06] LABS: ALT/SGPT 18.0 U/L (7.0-40); AST/SGOT 17.0 U/L (<34); CALCIUM LEVEL 9.4 MG/DL (8.3-10.6); CARBON DIOXIDE LEVEL 26.0 MMOL/L (20-31); CHLORIDE LEVEL 109.0 MMOL/L (98-107); CHOLESTEROL LEVEL 151.0 MG/DL (<200); CHOLESTEROL RISK RATIO 3.35 (<5); CPK CREATINE PHOSPHOKINASE 141.0 U/L (46-171); CREATININE FOR GFR 1.91 MG/DL (0.70-1.30); GLOMERULAR FILTRATION RATE 34.6 (>35); LDL CHOLESTEROL 82.6 MG/DL (<100); NON-HDL-C 106.0 MG/DL; POTASSIUM SERUM 4.6 MMOL/L (3.5-5.1); SODIUM LEVEL 147.0 MMOL/L (136-145); TRIGLYCERIDES LEVEL 117.0 MG/DL (<150)
[2025-04-04 13:07] LABS: TOTAL 25(OH) VITAMIN D 32.9 NG/ML (20.0-100.0)
[2025-04-04 13:10] LABS: ESTIMATED AVERAGE GLUCOSE 128.0 MG/DL (60-110)
[2025-04-04 13:29] LABS: CREATININE, URINE 169.0 MG/DL; MALB URINE SIEMENS 69.0 MG/L; MAU/CREAT RATIO 40.8 MCG/MG (0.0-30.0)
== END ==
LOC: M WUC 09:06
PROVIDERS: ATTEND Nurse Practitioner Family
DX: E11.9 Type 2 diabetes mellitus without complications (principal); E55.9 Vitamin D deficiency, unspecified; I10 Essential (primary) hypertension

== ENCOUNTER 2025-04-16 08:30 | Emergency (ER) | payer MEDICARE ==
[~2025-04-16] VITALS: Ht 175.3 cm; Wt 94.1 kg
[2025-04-16] MEDS: TETANUS/DIPHTH/ACEL. PERTUSSIS 0.5 ML SYR IM.IMMUN ONE (09:09)
[2025-04-16 10:00] VITALS: BP 158/84; TEMP 97.2; O2SAT 93
[2025-04-16] MEDS ORDERED: BACIOIN23 OP (10:02)
== END 2025-04-16 10:11 | disposition home or self-care (01) ==
LOC: EDBD 08:30 → M ED 08:30
DX: S01.112A Laceration without foreign body of left eyelid and periocular area, initial encounter (principal); W06.XXXA Fall from bed, initial encounter; E11.9 Type 2 diabetes mellitus without complications; Z86.79 Personal history of other diseases of the circulatory system; Z79.01 Long term (current) use of anticoagulants; Z23 Encounter for immunization; Z79.02 Long term (current) use of antithrombotics/antiplatelets; Z79.899 Other long term (current) drug therapy; Z79.4 Long term (current) use of insulin; Y99.9 Unspecified external cause status; Y92.009 Unspecified place in unspecified non-institutional (private) residence as the place of occurrence of the external cause; Y93.89 Activity, other specified